=== PATIENT | male | born 1985 | race Caucasian/White ===

== ENCOUNTER 2016-07-28 16:47 | Emergency (ER) | payer OTHER ==
[~2016-07-28 16:47] MED LIST: CLIN1CAP5 PO; TYLE325T5 PO
[2016-07-28 18:29] LABS: BASO % 0.8 % (0.0-1.0); EOS # 0.2 K/mm3 (0.0-0.50); EOS % 3.1 % (0.0-3.0); LARGE UNSTAINED CELL # 0.1 K/mm3 (0.0-0.4); LARGE UNSTAINED CELL % 1.5 % (0.0-4.0); LYMPH # 1.1 K/mm3 (1.5-4.5); LYMPH % 20.8 % (24.0-44.0); MEAN CORPUSCULAR HEMOGLOBIN 31.8 pg (27.0-33.0); MEAN CORPUSCULAR HGB CONC 35.4 g/dl (32.0-36.5); MEAN CORPUSCULAR VOLUME 89.7 fl (80.0-96.0); MONO # 0.2 K/mm3 (0.0-0.8); MONO % 4.6 % (0.0-5.0); NEUTROPHILS # 3.6 K/mm3 (1.8-7.7); NEUTROPHILS % 69.3 % (36.0-66.0); PLATELET COUNT, AUTOMATED 137 k/mm3 (150-450); RED CELL DISTRIBUTION WIDTH 12.7 % (11.5-14.5); WHITE BLOOD COUNT 5.2 K/mm3 (4.0-10.0)
[2016-07-28 18:41] LABS: ALBUMIN/GLOBULIN RATIO 1.33 (1.00-1.93); ALKALINE PHOSPHATASE 95 U/L (45-117); ALT/SGPT 44 U/L (12-78); AMYLASE 26 U/L (25-115); ANION GAP 7 MEQ/L (8-16); AST/SGOT 14 U/L (15-37); BILIRUBIN,DIRECT 0.2 MG/DL (0.0-0.2); BILIRUBIN,TOTAL 0.5 MG/DL (0.2-1.0); BLOOD UREA NITROGEN 16 MG/DL (7-18); CALCIUM LEVEL 8.7 MG/DL (8.5-10.1); CARBON DIOXIDE LEVEL 28 MEQ/L (21-32); CHLORIDE LEVEL 105 MEQ/L (98-107); CREATININE FOR GFR 1.04 MG/DL (0.70-1.30); GLOMERULAR FILTRATION RATE > 60.0 (>60); GLUCOSE, FASTING 96 MG/DL (70-105); SODIUM LEVEL 140 MEQ/L (136-145)
--- NOTE | 2016-07-28 20:58 | REP ---
Clinical: Periumbilical pain. Technique: Supine and upright views of the abdomen and pelvis. Findings: Lung bases are clear and without evidence for pneumoperitoneum. Supine and upright views of the abdomen and pelvis demonstrate nonspecific bowel gas pattern without obstruction or perforation. No organomegaly. No abnormal calcifications. Skeletal structures normal for age. Impression: Nonspecific bowel gas pattern. Signed by Shailesh Nunez MD 07/28/2016 08:49 P
--- NOTE | 2016-07-28 21:16 | EDDOCDS ---
Physician Documentation [facility] Name: Mino Swanson Age: 31 yrs Sex: Male : 1985 Arrival Date: 07/28/2016 Time: 16:47 Bed TR2 Private MD: Samy Adame Disposition: 07/28/16 21:09 Discharged to Home/Self Care. Impression: Unspecified abdominal pain - umbilical . - Condition is Stable. - Discharge Instructions: Abdominal Pain, Adult. - Medication Reconciliation, Local Pharmacy Hours form. - Follow up: Joaquim Xiao; When: Call to arrange an appointment; Reason: Recheck today's complaints, Continuance of care. Follow up: Phil Peraza; When: Call to arrange an appointment; Reason: Recheck today's complaints, Continuance of care. - Problem is new. - Symptoms are unchanged. Historical: - Allergies: no known allergies; - Home Meds: 1. [place] 5-325 mg Oral tab 1 tab every 4-6 hours (Last dose: 07/27/2016) - PMHx: GERD; - PSHx: Hernia repair- Umbilical; pilonidal cyst; - Social history: Smoking status: Patient uses tobacco products, current some day smoker. No barriers to communication noted, The patient speaks fluent New Zealander, Speaks appropriately for age. - Family history: Not pertinent. - : The pt / caregiver states he / she is not on anticoagulants. Home medication list is obtained from the patient. - Exposure Risk Screening:: None identified. Vital Signs: 07/28 16:48 BP 151 / 81; Pulse 101; Resp 18 S; Temp 99.2(O); Pulse Ox 99% on R/A; Weight 117.93 kg gr2 / 259.99 lbs (R); Height 6 ft. 0 in. (182.88 cm) (R); Pain 4/10; 17:55 BP 144 / 72; Pulse 89; Resp 20; Temp 99.7(TE); Pulse Ox 98% on R/A; Pain 9/10; ar3 21:02 BP 134 / 72 LA Sitting (auto/lg); Pulse 91; Resp 18; Temp 99.0; Pulse Ox 95% on R/A; bnb Pain 9/10; 16:48 Body Mass Index 35.26 (117.93 kg, 182.88 cm) gr2 MDM: 17:19 Undress patient appropriately for examination ordered. jc4 17:20 Amylase Ordered. EDMS 17:20 Basic Metabolic Profile Ordered. EDMS 17:20 CBC with Diff Ordered. EDMS 17:20 Lipase Ordered. EDMS 17:20 Liver Profile Ordered. EDMS 17:21 NOTHING BY MOUTH+DIET ordered. EDMS 19:45 Liver Profile Reviewed. mo1 19:45 Amylase Reviewed. mo1 19:46 Lipase Reviewed. mo1 19:46 CBC with Diff Reviewed. mo1 19:46 Basic Metabolic Profile Reviewed. mo1 19:57 Abdomen 2 View Ordered. EDMS 20:10 Financial registration complete. gjb 20:12 [facility] Payment Agreement was scanned into [employer] and attached to record. gjb Signatures: Dispatcher [employer] Emir Hernandez, RN Layne Frederick RN RN jc4 Jose De Jesus Xiong PA PA mo1 Mila Lindsay,RN Tsering Black The chart was reviewed and I authenticate all verbal orders and agree with the evaluation and treatment provided.Attachments: 20:12 [facility] [place] Payment Agreement gjb MTDD
--- NOTE | 2016-07-28 21:16 | EDDOCDS ---
Nurse's Notes [facility] Name: Mino Swanson Age: 31 yrs Sex: Male : 1985 Arrival Date: 07/28/2016 Time: 16:47 Bed TR2 Private MD: Samy Adame Diagnosis: Unspecified abdominal pain-umbilical Presentation: 07/28 16:50 Presenting complaint: Patient states: pt c/o lower abdominal pain x 2 weeks. reports ead hernia repair in May. Pt states "it feels like another hernia starting." Pt reports nausea, denies vomiting. "When I burp it smells like rotten eggs.". Risk factors: the patient reports not having a history of previous torsion. Adult Sepsis Screening: The patient does not have new or worsening altered mentation. Patient's respiratory rate is less than 22. Systolic blood pressure is greater than 100. Patient has a qSOFA score of 0- Negative Sepsis Screen. Suicide/Homicide risk assessment- the patient denies having any suicidal and/or homicidal ideations and does not present with any other emotional, behavioral or mental health complaints. Status: Patient is not a business services analyst or dependent. Transition of care: patient was not received from another setting of care. 16:50 Acuity: RAKEL Level 3 ead 16:50 Method Of Arrival: Walkin/Carried/Asstd ead Triage Assessment: 16:52 General: Appears in no apparent distress, Behavior is appropriate for age, cooperative. ead Pain: Location: umbilical area, right upper quadrant and left upper quadrant Pain currently is 8 out of 10 on a pain scale. HIV screening NA for this visit Offered previously. Respiratory: Airway is patent Respiratory effort is even, unlabored. GI: Abdomen is obese, Reports lower abdominal pain, upper abd pain, nausea, Denies vomiting. Derm: Skin is pink, warm & dry. Historical: - Allergies: no known allergies; - Home Meds: 1. [place] 5-325 mg Oral tab 1 tab every 4-6 hours (Last dose: 07/27/2016) - PMHx: GERD; - PSHx: Hernia repair- Umbilical; pilonidal cyst; - Social history: Smoking status: Patient uses tobacco products, current some day smoker. No barriers to communication noted, The patient speaks fluent Vietnamese, Speaks appropriately for age. - Family history: Not pertinent. - : The pt / caregiver states he / she is not on anticoagulants. Home medication list is obtained from the patient. - Exposure Risk Screening:: None identified. Screenin:28 Screening information is obtained from the patient. Fall risk: No risks identified. cz Assistance ADL's: requires no assistance with activities of daily living. Abuse/DV Screen: The patient / caregiver reports he/she is: not in a situation that causes fear, pain or injury. Nutritional screening: No deficits noted. Advance Directives: Currently, there is no health care proxy. There is no active DNR order. There is no living will. There is no Power of Dial Equipment Engineer. Advance directive information has not previously been placed in an [facility] medical record. home support is adequate. Assessment: 19:28 Reassessment: no change in assessment abdominal pain for 2 weeks. cz Vital Signs: 16:48 BP 151 / 81; Pulse 101; Resp 18 S; Temp 99.2(O); Pulse Ox 99% on R/A; Weight 117.93 kg gr2 (R); Height 6 ft. 0 in. (182.88 cm) (R); Pain 4/10; 17:55 BP 144 / 72; Pulse 89; Resp 20; Temp 99.7(TE); Pulse Ox 98% on R/A; Pain 9/10; ar3 21:02 BP 134 / 72 LA Sitting (auto/lg); Pulse 91; Resp 18; Temp 99.0; Pulse Ox 95% on R/A; bnb Pain 9/10; 16:48 Body Mass Index 35.26 (117.93 kg, 182.88 cm) 2 Vitals: 16:48 Log In Time: July 28, 2016 at 16:48. gr2 ED Course: 16:48 Patient visited by ePlon Cohen. gr2 16:48 Samy Adame MD is Private Physician. gr2 16:48 Patient moved to Waiting gr2 16:49 Patient visited by Pelon Cohen. gr2 16:49 Patient moved to Pre RCE gr2 16:52 Triage Initiated ead 17:57 Patient visited by Maria Guadalupe Josue PCA. ar3 18:00 Amylase Sent. ar3 18:00 Basic Metabolic Profile Sent. ar3 18:00 CBC with Diff Sent. ar3 18:00 Lipase Sent. ar3 18:00 Liver Profile Sent. ar3 19:26 Patient moved to Triage 1 cz 19:28 The patient / caregiver is instructed regarding the plan of care and ED course. cz 19:29 Jose De Jesus Xiong PA is PHCP. mo1 19:29 Mino Mo DO is Attending Physician. mo1 19:47 Patient visited by Jose De Jesus Xiong PA. mo1 19:58 Patient moved to TR1 ms18 20:12 [facility] Payment Agreement was scanned into [employer] and attached to record. gjb 20:54 Patient moved to PR1 / 25 ar3 21:03 Patient visited by Yulia Ashley PCA. bnb 21:09 Joaquim Xiao is Referral Physician. mo1 21:09 Phil Peraza is Referral Physician. mo1 21:15 Patient moved to TR2 cz 21:15 No IV's were initiated during this patient's visit. No procedures done that require cz assistance. Order Results: Lab Order: Amylase; SPEC'M 07/28/16 18:00 Test: AMYLASE; Value: 26; Range: 25-115; Units: U/L; Status: F Lab Order: Basic Metabolic Profile; SPEC'M 07/28/16 18:00 Test: GLUCOSE, FASTING; Value: 96; Range: 70-105; Units: MG/DL; Status: F Test: BLOOD UREA NITROGEN; Value: 16; Range: 7-18; Units: MG/DL; Status: F Test: CREATININE FOR GFR; Value: 1.04; Range: 0.70-1.30; Units: MG/DL; Status: F Test: GLOMERULAR FILTRATION RATE; Value: > 60.0; Range: >60; Status: F Test: SODIUM LEVEL; Value: 140; Range: 136-145; Units: MEQ/L; Status: F Test: POTASSIUM SERUM; Value: 4.0; Range: 3.5-5.1; Units: MEQ/L; Status: F Test: CHLORIDE LEVEL; Value: 105; Range: 98-107; Units: MEQ/L; Status: F Test: CARBON DIOXIDE LEVEL; Value: 28; Range: 21-32; Units: MEQ/L; Status: F Test: ANION GAP; Value: 7; Range: 8-16; Abnormal: Below low normal; Units: MEQ/L; Status: F Test: CALCIUM LEVEL; Value: 8.7; Range: 8.5-10.1; Units: MG/DL; Status: F Test Note: ; Units are mL/min/1.73 m2 Chronic Kidney Disease Staging per NKF: Stage I & II GFR >=60 Normal to Mildly Decreased Stage III GFR 30-59 Moderately Decreased Stage IV GFR 15-29 Severely Decreased Stage V GFR <15 Very Little GFR Left ESRD GFR <15 on OPERATIONS ACCOUNTANT Lab Order: CBC with Diff; SPEC'M 07/28/16 18:00 Test: WHITE BLOOD COUNT; Value: 5.2; Range: 4.0-10.0; Units: K/mm3; Status: F Test: RED BLOOD COUNT; Value: 5.09; Range: 4.30-6.10; Units: M/mm3; Status: F Test: HEMOGLOBIN; Value: 16.2; Range: 14.0-18.0; Units: g/dl; Status: F Test: HEMATOCRIT; Value: 45.7; Range: 42.0-52.0; Units: %; Status: F Test: MEAN CORPUSCULAR VOLUME; Value: 89.7; Range: 80.0-96.0; Units: fl; Status: F Test: MEAN CORPUSCULAR HEMOGLOBIN; Value: 31.8; Range: 27.0-33.0; Units: pg; Status: F Test: MEAN CORPUSCULAR HGB CONC; Value: 35.4; Range: 32.0-36.5; Units: g/dl; Status: F Test: RED CELL DISTRIBUTION WIDTH; Value: 12.7; Range: 11.5-14.5; Units: %; Status: F Test: PLATELET COUNT, AUTOMATED; Value: 137; Range: 150-450; Abnormal: Below low normal; Units: k/mm3; Status: F Test: NEUTROPHILS %; Value: 69.3; Range: 36.0-66.0; Abnormal: Above high normal; Units: %; Status: F Test: LYMPH %; Value: 20.8; Range: 24.0-44.0; Abnormal: Below low normal; Units: %; Status: F Test: MONO %; Value: 4.6; Range: 0.0-5.0; Units: %; Status: F Test: EOS %; Value: 3.1; Range: 0.0-3.0; Abnormal: Above high normal; Units: %; Status: F Test: BASO %; Value: 0.8; Range: 0.0-1.0; Units: %; Status: F Test: LARGE UNSTAINED CELL %; Value: 1.5; Range: 0.0-4.0; Units: %; Status: F Test: NEUTROPHILS #; Value: 3.6; Range: 1.8-7.7; Units: K/mm3; Status: F Test: LYMPH #; Value: 1.1; Range: 1.5-4.5; Abnormal: Below low normal; Units: K/mm3; Status: F Test: MONO #; Value: 0.2; Range: 0.0-0.8; Units: K/mm3; Status: F Test: EOS #; Value: 0.2; Range: 0.0-0.50; Units: K/mm3; Status: F Test: BASO #; Value: 0.0; Range: 0.0-0.2; Units: K/mm3; Status: F Test: LARGE UNSTAINED CELL #; Value: 0.1; Range: 0.0-0.4; Units: K/mm3; Status: F Lab Order: Lipase; SPEC'M 07/28/16 18:00 Test: LIPASE; Value: 121; Range: 73-393; Units: U/L; Status: F Lab Order: Liver Profile; SPEC'M 07/28/16 18:00 Test: AST/SGOT; Value: 14; Range: 15-37; Abnormal: Below low normal; Units: U/L; Status: F Test: ALT/SGPT; Value: 44; Range: 12-78; Units: U/L; Status: F Test: ALKALINE PHOSPHATASE; Value: 95; Range: 45-117; Units: U/L; Status: F Test: BILIRUBIN,TOTAL; Value: 0.5; Range: 0.2-1.0; Units: MG/DL; Status: F Test: BILIRUBIN,DIRECT; Value: 0.2; Range: 0.0-0.2; Units: MG/DL; Status: F Test: TOTAL PROTEIN; Value: 7.0; Range: 6.4-8.2; Units: GM/DL; Status: F Test: ALBUMIN; Value: 4.0; Range: 3.2-5.2; Units: GM/DL; Status: F Test: ALBUMIN/GLOBULIN RATIO; Value: 1.33; Range: 1.00-1.93; Status: F Outcome: 21:09 Discharge ordered by Provider. mo1 21:15 Discharge Assessment: Patient awake, alert and oriented x 3. No cognitive and/or cz functional deficits noted. Patient verbalized understanding of disposition instructions. patient administered narcotics - no. The following High Risk Discharge criteria are identified: None. Discharged to home ambulatory. Condition: stable. Discharge instructions given to patient, Instructed on discharge instructions, follow up and referral plans. Demonstrated understanding of instructions, Pt was receptive of discharge instructions/ teaching. No special radiology studies were completed. Property :Personal belongings accompany Pt. 21:16 Patient left the ED. cz Signatures: Emir Keating RN RN cz Maria Guadalupe Josue, ROOM SERVICE MANAGER ROOM SERVICE MANAGER ar3 Pelon Cohen gr2 Jose De Jesus Xiong PA PA mo1 Mila Lindsay,RN RN Arabella Cortez RN RN ms18 Tsering Lovelace Brittney, ROOM SERVICE MANAGER ROOM SERVICE MANAGER bnb TIAN
--- NOTE | 2016-07-30 22:16 | EDDOCDS ---
Physician Documentation [facility] Name: Mino Swanson Age: 31 yrs Sex: Male : 1985 Arrival Date: 07/28/2016 Time: 16:47 Bed TR2 Private MD: Samy Adame Disposition: 07/28/16 21:09 Discharged to Home/Self Care. Impression: Unspecified abdominal pain - umbilical . - Condition is Stable. - Discharge Instructions: Abdominal Pain, Adult. - Medication Reconciliation, Local Pharmacy Hours form. - Follow up: Joaquim Xiao; When: Call to arrange an appointment; Reason: Recheck today's complaints, Continuance of care. Follow up: Phil Peraza; When: Call to arrange an appointment; Reason: Recheck today's complaints, Continuance of care. - Problem is new. - Symptoms are unchanged. Historical: - Allergies: no known allergies; - Home Meds: 1. [place] 5-325 mg Oral tab 1 tab every 4-6 hours (Last dose: 07/27/2016) - PMHx: GERD; - PSHx: Hernia repair- Umbilical; pilonidal cyst; - Social history: Smoking status: Patient uses tobacco products, current some day smoker. No barriers to communication noted, The patient speaks fluent Mauritanian, Speaks appropriately for age. - Family history: Not pertinent. - : The pt / caregiver states he / she is not on anticoagulants. Home medication list is obtained from the patient. - Exposure Risk Screening:: None identified. Vital Signs: 07/28 16:48 BP 151 / 81; Pulse 101; Resp 18 S; Temp 99.2(O); Pulse Ox 99% on R/A; Weight 117.93 kg gr2 / 259.99 lbs (R); Height 6 ft. 0 in. (182.88 cm) (R); Pain 4/10; 17:55 BP 144 / 72; Pulse 89; Resp 20; Temp 99.7(TE); Pulse Ox 98% on R/A; Pain 9/10; ar3 21:02 BP 134 / 72 LA Sitting (auto/lg); Pulse 91; Resp 18; Temp 99.0; Pulse Ox 95% on R/A; bnb Pain 9/10; 16:48 Body Mass Index 35.26 (117.93 kg, 182.88 cm) gr2 MDM: 17:19 Undress patient appropriately for examination ordered. jc4 17:20 Amylase Ordered. EDMS 17:20 Basic Metabolic Profile Ordered. EDMS 17:20 CBC with Diff Ordered. EDMS 17:20 Lipase Ordered. EDMS 17:20 Liver Profile Ordered. EDMS 17:21 NOTHING BY MOUTH+DIET ordered. EDMS 19:45 Liver Profile Reviewed. mo1 19:45 Amylase Reviewed. mo1 19:46 Lipase Reviewed. mo1 19:46 CBC with Diff Reviewed. mo1 19:46 Basic Metabolic Profile Reviewed. mo1 19:57 Abdomen 2 View Ordered. EDMS 20:10 Financial registration complete. b :12 [facility] Payment Agreement was scanned into [employer] and attached to record. gjb 07/29 10:29 T-Sheet-- Draft Copy was scanned into [employer] and attached to record. gb Signatures: Dispatcher [employer] Emir Hernandez, Priscila Olivas RN, Howard Reg gb Layne Bustamante RN RN jc4 Jose De Jesus Xiong PA PA mo1 Mila Lindsay RN RN ead Beck, Gabriela gjb The chart was reviewed and I authenticate all verbal orders and agree with the evaluation and treatment provided.Attachments: 07/28 20:12 [facility] Payment Agreement gjb 07/29 10:29 T-Sheet-- Draft Copy gb Chart Complete MTDD
--- NOTE | 2016-07-30 22:16 | EDDOCDS ---
Nurse's Notes [facility] Name: Mino Swanson Age: 31 yrs Sex: Male : 1985 Arrival Date: 07/28/2016 Time: 16:47 Bed TR2 Private MD: Samy Adame Diagnosis: Unspecified abdominal pain-umbilical Presentation: 07/28 16:50 Presenting complaint: Patient states: pt c/o lower abdominal pain x 2 weeks. reports ead hernia repair in May. Pt states "it feels like another hernia starting." Pt reports nausea, denies vomiting. "When I burp it smells like rotten eggs.". Risk factors: the patient reports not having a history of previous torsion. Adult Sepsis Screening: The patient does not have new or worsening altered mentation. Patient's respiratory rate is less than 22. Systolic blood pressure is greater than 100. Patient has a qSOFA score of 0- Negative Sepsis Screen. Suicide/Homicide risk assessment- the patient denies having any suicidal and/or homicidal ideations and does not present with any other emotional, behavioral or mental health complaints. Status: Patient is not a stamp machine servicer or dependent. Transition of care: patient was not received from another setting of care. 16:50 Acuity: RAKEL Level 3 ead 16:50 Method Of Arrival: Walkin/Carried/Asstd ead Triage Assessment: 16:52 General: Appears in no apparent distress, Behavior is appropriate for age, cooperative. ead Pain: Location: umbilical area, right upper quadrant and left upper quadrant Pain currently is 8 out of 10 on a pain scale. HIV screening NA for this visit Offered previously. Respiratory: Airway is patent Respiratory effort is even, unlabored. GI: Abdomen is obese, Reports lower abdominal pain, upper abd pain, nausea, Denies vomiting. Derm: Skin is pink, warm & dry. Historical: - Allergies: no known allergies; - Home Meds: 1. [place] 5-325 mg Oral tab 1 tab every 4-6 hours (Last dose: 07/27/2016) - PMHx: GERD; - PSHx: Hernia repair- Umbilical; pilonidal cyst; - Social history: Smoking status: Patient uses tobacco products, current some day smoker. No barriers to communication noted, The patient speaks fluent Kinyarwanda, Speaks appropriately for age. - Family history: Not pertinent. - : The pt / caregiver states he / she is not on anticoagulants. Home medication list is obtained from the patient. - Exposure Risk Screening:: None identified. Screenin:28 Screening information is obtained from the patient. Fall risk: No risks identified. cz Assistance ADL's: requires no assistance with activities of daily living. Abuse/DV Screen: The patient / caregiver reports he/she is: not in a situation that causes fear, pain or injury. Nutritional screening: No deficits noted. Advance Directives: Currently, there is no health care proxy. There is no active DNR order. There is no living will. There is no Power of Videotape Operator. Advance directive information has not previously been placed in an [facility] medical record. home support is adequate. Assessment: 19:28 Reassessment: no change in assessment abdominal pain for 2 weeks. cz Vital Signs: 16:48 BP 151 / 81; Pulse 101; Resp 18 S; Temp 99.2(O); Pulse Ox 99% on R/A; Weight 117.93 kg gr2 (R); Height 6 ft. 0 in. (182.88 cm) (R); Pain 4/10; 17:55 BP 144 / 72; Pulse 89; Resp 20; Temp 99.7(TE); Pulse Ox 98% on R/A; Pain 9/10; ar3 21:02 BP 134 / 72 LA Sitting (auto/lg); Pulse 91; Resp 18; Temp 99.0; Pulse Ox 95% on R/A; bnb Pain 9/10; 16:48 Body Mass Index 35.26 (117.93 kg, 182.88 cm) 2 Vitals: 16:48 Log In Time: July 28, 2016 at 16:48. gr2 ED Course: 16:48 Patient visited by Pelon Cohen. gr2 16:48 Samy Adame MD is Private Physician. gr2 16:48 Patient moved to Waiting gr2 16:49 Patient visited by Pelon Cohen. gr2 16:49 Patient moved to Pre RCE gr2 16:52 Triage Initiated ead 17:57 Patient visited by Maria Guadalupe Josue PCA. ar3 18:00 Amylase Sent. ar3 18:00 Basic Metabolic Profile Sent. ar3 18:00 CBC with Diff Sent. ar3 18:00 Lipase Sent. ar3 18:00 Liver Profile Sent. ar3 19:26 Patient moved to Triage 1 cz 19:28 The patient / caregiver is instructed regarding the plan of care and ED course. cz 19:29 Jose De Jesus Xiong PA is PHCP. mo1 19:29 Mino Mo DO is Attending Physician. mo1 19:47 Patient visited by Jose De Jesus Xiong PA. mo1 19:58 Patient moved to TR1 ms18 20:12 [facility] Payment Agreement was scanned into Listen Edition and attached to record. gjb 20:54 Patient moved to PR1 / 25 ar3 21:03 Patient visited by Yulia Ashley PCA. bnb 21:09 Joaquim Xiao is Referral Physician. mo1 21:09 Phil Peraza is Referral Physician. mo1 21:15 Patient moved to TR2 cz 21:15 No IV's were initiated during this patient's visit. No procedures done that require cz assistance. 21:25 Abdomen 2 View Returned. EDMS 07/29 10:29 T-Sheet-- Draft Copy was scanned into Listen Edition and attached to record. gb Order Results: Lab Order: Amylase; SPEC'M 07/28/16 18:00 Test: AMYLASE; Value: 26; Range: 25-115; Units: U/L; Status: F Lab Order: Basic Metabolic Profile; SPEC'M 07/28/16 18:00 Test: GLUCOSE, FASTING; Value: 96; Range: 70-105; Units: MG/DL; Status: F Test: BLOOD UREA NITROGEN; Value: 16; Range: 7-18; Units: MG/DL; Status: F Test: CREATININE FOR GFR; Value: 1.04; Range: 0.70-1.30; Units: MG/DL; Status: F Test: GLOMERULAR FILTRATION RATE; Value: > 60.0; Range: >60; Status: F Test: SODIUM LEVEL; Value: 140; Range: 136-145; Units: MEQ/L; Status: F Test: POTASSIUM SERUM; Value: 4.0; Range: 3.5-5.1; Units: MEQ/L; Status: F Test: CHLORIDE LEVEL; Value: 105; Range: 98-107; Units: MEQ/L; Status: F Test: CARBON DIOXIDE LEVEL; Value: 28; Range: 21-32; Units: MEQ/L; Status: F Test: ANION GAP; Value: 7; Range: 8-16; Abnormal: Below low normal; Units: MEQ/L; Status: F Test: CALCIUM LEVEL; Value: 8.7; Range: 8.5-10.1; Units: MG/DL; Status: F Test Note: ; Units are mL/min/1.73 m2 Chronic Kidney Disease Staging per NKF: Stage I & II GFR >=60 Normal to Mildly Decreased Stage III GFR 30-59 Moderately Decreased Stage IV GFR 15-29 Severely Decreased Stage V GFR <15 Very Little GFR Left ESRD GFR <15 on TRUCK DESPATCHER Lab Order: CBC with Diff; SPEC'M 07/28/16 18:00 Test: WHITE BLOOD COUNT; Value: 5.2; Range: 4.0-10.0; Units: K/mm3; Status: F Test: RED BLOOD COUNT; Value: 5.09; Range: 4.30-6.10; Units: M/mm3; Status: F Test: HEMOGLOBIN; Value: 16.2; Range: 14.0-18.0; Units: g/dl; Status: F Test: HEMATOCRIT; Value: 45.7; Range: 42.0-52.0; Units: %; Status: F Test: MEAN CORPUSCULAR VOLUME; Value: 89.7; Range: 80.0-96.0; Units: fl; Status: F Test: MEAN CORPUSCULAR HEMOGLOBIN; Value: 31.8; Range: 27.0-33.0; Units: pg; Status: F Test: MEAN CORPUSCULAR HGB CONC; Value: 35.4; Range: 32.0-36.5; Units: g/dl; Status: F Test: RED CELL DISTRIBUTION WIDTH; Value: 12.7; Range: 11.5-14.5; Units: %; Status: F Test: PLATELET COUNT, AUTOMATED; Value: 137; Range: 150-450; Abnormal: Below low normal; Units: k/mm3; Status: F Test: NEUTROPHILS %; Value: 69.3; Range: 36.0-66.0; Abnormal: Above high normal; Units: %; Status: F Test: LYMPH %; Value: 20.8; Range: 24.0-44.0; Abnormal: Below low normal; Units: %; Status: F Test: MONO %; Value: 4.6; Range: 0.0-5.0; Units: %; Status: F Test: EOS %; Value: 3.1; Range: 0.0-3.0; Abnormal: Above high normal; Units: %; Status: F Test: BASO %; Value: 0.8; Range: 0.0-1.0; Units: %; Status: F Test: LARGE UNSTAINED CELL %; Value: 1.5; Range: 0.0-4.0; Units: %; Status: F Test: NEUTROPHILS #; Value: 3.6; Range: 1.8-7.7; Units: K/mm3; Status: F Test: LYMPH #; Value: 1.1; Range: 1.5-4.5; Abnormal: Below low normal; Units: K/mm3; Status: F Test: MONO #; Value: 0.2; Range: 0.0-0.8; Units: K/mm3; Status: F Test: EOS #; Value: 0.2; Range: 0.0-0.50; Units: K/mm3; Status: F Test: BASO #; Value: 0.0; Range: 0.0-0.2; Units: K/mm3; Status: F Test: LARGE UNSTAINED CELL #; Value: 0.1; Range: 0.0-0.4; Units: K/mm3; Status: F Lab Order: Lipase; SPEC' 07/28/16 18:00 Test: LIPASE; Value: 121; Range: 73-393; Units: U/L; Status: F Lab Order: Liver Profile; SPEC' 07/28/16 18:00 Test: AST/SGOT; Value: 14; Range: 15-37; Abnormal: Below low normal; Units: U/L; Status: F Test: ALT/SGPT; Value: 44; Range: 12-78; Units: U/L; Status: F Test: ALKALINE PHOSPHATASE; Value: 95; Range: 45-117; Units: U/L; Status: F Test: BILIRUBIN,TOTAL; Value: 0.5; Range: 0.2-1.0; Units: MG/DL; Status: F Test: BILIRUBIN,DIRECT; Value: 0.2; Range: 0.0-0.2; Units: MG/DL; Status: F Test: TOTAL PROTEIN; Value: 7.0; Range: 6.4-8.2; Units: GM/DL; Status: F Test: ALBUMIN; Value: 4.0; Range: 3.2-5.2; Units: GM/DL; Status: F Test: ALBUMIN/GLOBULIN RATIO; Value: 1.33; Range: 1.00-1.93; Status: F Radiology Order: Abdomen 2 View Test: Abdomen 2 View REASON FOR EXAMINATION: tarun umbilical pain; Clinical: Periumbilical pain.; ; Technique: Supine and upright views of the abdomen and pelvis.; ; Findings: Lung bases are clear and without evidence for pneumoperitoneum. Supine; and upright views of the abdomen and pelvis demonstrate nonspecific bowel gas; pattern without obstruction or perforation. No organomegaly. No abnormal; calcifications. Skeletal structures normal for age.; ; Impression:; Nonspecific bowel gas pattern.; ; ; Signed by; Shailesh Nunez MD 07/28/2016 08:49 P; Outcome: 07/28 21:09 Discharge ordered by Provider. mo1 21:15 Discharge Assessment: Patient awake, alert and oriented x 3. No cognitive and/or cz functional deficits noted. Patient verbalized understanding of disposition instructions. patient administered narcotics - no. The following High Risk Discharge criteria are identified: None. Discharged to home ambulatory. Condition: stable. Discharge instructions given to patient, Instructed on discharge instructions, follow up and referral plans. Demonstrated understanding of instructions, Pt was receptive of discharge instructions/ teaching. No special radiology studies were completed. Property :Personal belongings accompany Pt. 21:16 Patient left the ED. cz Signatures: Dispatcher [employer] EDMS Emir Keating RN RN cz Priscila Hendrickson, Reg Reg gb Maria Guadalupe Josue, BOAT WORKER BOAT WORKER ar3 Pelon Cohen gr2 Jose De Jesus Xiong PA PA mo1 Mila Lindsay,Arabella Hilton RN,JYOTI RN ms18 Tsering Lovelace Brittney, BOAT WORKER BOAT WORKER bnb Chart Complete MTDD
--- NOTE | 2016-07-30 22:16 | EDDOCDS ---
Physician Documentation [facility] Name: Mino Swanson Age: 31 yrs Sex: Male : 1985 Arrival Date: 07/28/2016 Time: 16:47 Bed TR2 Private MD: Samy Adame Disposition: 07/28/16 21:09 Discharged to Home/Self Care. Impression: Unspecified abdominal pain - umbilical . - Condition is Stable. - Discharge Instructions: Abdominal Pain, Adult. - Medication Reconciliation, Local Pharmacy Hours form. - Follow up: Joaquim Xiao; When: Call to arrange an appointment; Reason: Recheck today's complaints, Continuance of care. Follow up: Phil Peraza; When: Call to arrange an appointment; Reason: Recheck today's complaints, Continuance of care. - Problem is new. - Symptoms are unchanged. Historical: - Allergies: no known allergies; - Home Meds: 1. [place] 5-325 mg Oral tab 1 tab every 4-6 hours (Last dose: 07/27/2016) - PMHx: GERD; - PSHx: Hernia repair- Umbilical; pilonidal cyst; - Social history: Smoking status: Patient uses tobacco products, current some day smoker. No barriers to communication noted, The patient speaks fluent Vietnamese, Speaks appropriately for age. - Family history: Not pertinent. - : The pt / caregiver states he / she is not on anticoagulants. Home medication list is obtained from the patient. - Exposure Risk Screening:: None identified. Vital Signs: 07/28 16:48 BP 151 / 81; Pulse 101; Resp 18 S; Temp 99.2(O); Pulse Ox 99% on R/A; Weight 117.93 kg gr2 / 259.99 lbs (R); Height 6 ft. 0 in. (182.88 cm) (R); Pain 4/10; 17:55 BP 144 / 72; Pulse 89; Resp 20; Temp 99.7(TE); Pulse Ox 98% on R/A; Pain 9/10; ar3 21:02 BP 134 / 72 LA Sitting (auto/lg); Pulse 91; Resp 18; Temp 99.0; Pulse Ox 95% on R/A; bnb Pain 9/10; 16:48 Body Mass Index 35.26 (117.93 kg, 182.88 cm) gr2 MDM: 17:19 Undress patient appropriately for examination ordered. jc4 17:20 Amylase Ordered. EDMS 17:20 Basic Metabolic Profile Ordered. EDMS 17:20 CBC with Diff Ordered. EDMS 17:20 Lipase Ordered. EDMS 17:20 Liver Profile Ordered. EDMS 17:21 NOTHING BY MOUTH+DIET ordered. EDMS 19:45 Liver Profile Reviewed. mo1 19:45 Amylase Reviewed. mo1 19:46 Lipase Reviewed. mo1 19:46 CBC with Diff Reviewed. mo1 19:46 Basic Metabolic Profile Reviewed. mo1 19:57 Abdomen 2 View Ordered. EDMS 20:10 Financial registration complete. b :12 [facility] Payment Agreement was scanned into Soraa and attached to record. gjb 07/29 10:29 T-Sheet-- Draft Copy was scanned into Soraa and attached to record. gb Signatures: Dispatcher [employer] Emir Hernandez, Priscila Olivas RN, Howard Reg gb Layne Bustamante RN RN jc4 Jose De Jesus Xiong PA PA mo1 Mila Lindsay RN RN ead Beck, Gabriela gjb The chart was reviewed and I authenticate all verbal orders and agree with the evaluation and treatment provided.Attachments: 07/28 20:12 [facility] Payment Agreement gjb 07/29 10:29 T-Sheet-- Draft Copy gb Chart Complete MTDD
== END 2016-07-28 21:16 | disposition home or self-care (01) ==
LOC: M ED 16:47
DX: R10.33 Periumbilical pain (principal); K21.9 Gastro-esophageal reflux disease without esophagitis; F17.200 Nicotine dependence, unspecified, uncomplicated; Z79.891 Long term (current) use of opiate analgesic

== ENCOUNTER → 2016-08-20 | Outpatient (REF) | payer OTHER | LOC: M SFHCPLAZ 09:46 | PROVIDERS: ATTEND Family Medicine | DX: R10.33 Periumbilical pain (principal) ==

== ENCOUNTER 2016-10-09 18:57 | Emergency (ER) | payer OTHER ==
[~2016-10-09] VITALS: Ht 182.9 cm; Wt 119.7 kg
[2016-10-09] MEDS ORDERED: PROT20TA11 PO (19:03)
[2016-10-09] MEDS ORDERED: MOBI7.5T10 PO (19:03)
[2016-10-09] MEDS ORDERED: MORPHINE 4 MG/ML 1ML SYRINGE IV ONE (21:00)
[2016-10-09] MEDS ORDERED: NS 1,000 ML IV ONE (21:00)
[2016-10-09] MEDS ORDERED: ONDANSETRON 4MG/2ML VIAL (J2405) IV ONE (21:00)
[2016-10-09 22:02] LABS: BASO # 0.1 K/mm3 (0.0-0.2); BASO % 0.7 % (0.0-1.0); EOS # 0.5 K/mm3 (0.0-0.50); EOS % 4.4 % (0.0-3.0); LARGE UNSTAINED CELL # 0.3 K/mm3 (0.0-0.4); LARGE UNSTAINED CELL % 2.4 % (0.0-4.0); LYMPH # 4.4 K/mm3 (1.5-4.5); LYMPH % 39.8 % (24.0-44.0); MEAN CORPUSCULAR HEMOGLOBIN 30.6 pg (27.0-33.0); MEAN CORPUSCULAR HGB CONC 34.4 g/dl (32.0-36.5); MONO # 0.6 K/mm3 (0.0-0.8); MONO % 5.3 % (0.0-5.0); NEUTROPHILS % 47.4 % (36.0-66.0); PLATELET COUNT, AUTOMATED 161 k/mm3 (150-450); WHITE BLOOD COUNT 10.5 K/mm3 (4.0-10.0)
[2016-10-09 22:13] LABS: ALBUMIN 4.1 GM/DL (3.2-5.2); ALBUMIN/GLOBULIN RATIO 1.41 (1.00-1.93); ALKALINE PHOSPHATASE 105 U/L (45-117); ALT/SGPT 63 U/L (12-78); ANION GAP 8 MEQ/L (8-16); AST/SGOT 23 U/L (15-37); BILIRUBIN,DIRECT < 0.1 MG/DL (0.0-0.2); BILIRUBIN,TOTAL 0.3 MG/DL (0.2-1.0); BLOOD UREA NITROGEN 18 MG/DL (7-18); CALCIUM LEVEL 8.6 MG/DL (8.5-10.1); CARBON DIOXIDE LEVEL 24 MEQ/L (21-32); CHLORIDE LEVEL 109 MEQ/L (98-107); CREATININE FOR GFR 1.01 MG/DL (0.70-1.30); GLOMERULAR FILTRATION RATE > 60.0 (>60); GLUCOSE, FASTING 94 MG/DL (70-105); SODIUM LEVEL 141 MEQ/L (136-145)
[2016-10-09] MEDS ORDERED: ISOVUE-370 76% 100ML VIAL (Q9967) As Ordered ONE (22:38)
--- NOTE | 2016-10-09 23:10 | REPUSA ---
CT of the abdomen and pelvis with contrast Clinical statement: Pain. Technique: Multiple axial CT images were obtained from the base of the lungs through the floor of the pelvis utilizing 5 mm axial slices after administration of nonionic intravenous contrast. Coronal an d sagittal reconstructions were also obtained. No comparison is available. Findings: Chest: The visualized lung bases are clear. Abdomen: The liver, spleen, pancreas, kidneys, gallbladder, and adrenal glands are unremarkable. The aorta is within normal limits. There is no evidence of abdominal lymphadenopathy or ascites. Pelvis: The bowel is unremarkable, with no obstructive or inflammatory changes. The appendix is concha l. The urinary bladder is within normal limits. The other pelvic structures appear grossly intact. Th ere is no evidence of pelvic lymphadenopathy or ascites. Bones: There are no suspicious osseous abnormalities seen. Impression: Unremarkable CT examination of the abdomen and pelvis.
[2016-10-10] MEDS ORDERED: ACET30TAB PO (00:19)
[2016-10-10] MEDS ORDERED: ACETAMINOPHEN/CODEINE #3 TABLET (BULK) PO ONE (00:30)
[2016-10-10 00:46] VITALS: BP 148/80
== END 2016-10-10 00:50 | disposition home or self-care (01) ==
LOC: M ED 20:55
DX: R10.9 Unspecified abdominal pain (principal)
CPT/HCPCS: 36415; 74177; 80048; 80076; 81001; 83690; 85025; 96361; 96374; 96375; 99283; J2405; Q9967

== ENCOUNTER → 2016-12-02 | Outpatient (CLI) | payer OTHER ==
[~2016-12-02] MED LIST changes: +ACET30TAB PO; +MOBI7.5T10 PO; +PROT20TA11 PO
--- NOTE | 2016-12-03 09:48 | REP ---
Clinical: Abdominal pain with prior hernia repair. Technique: Directed ultrasound examination of the periumbilical region using linear high frequency transducer. Findings: Ultrasound examination of the periumbilical region demonstrates no hernia, fluid collection or mass lesion. Visualized soft tissue structures appear normal. Impression: Normal limited abdominal ultrasound without evidence for umbilical hernia or periumbilical abnormality. Signed by Shailesh Nunez MD 12/02/2016 01:21 P
== END ==
LOC: M RAD 12:38
PROVIDERS: ATTEND Surgery
DX: R10.84 Generalized abdominal pain (principal)

== ENCOUNTER 2016-12-14 19:40 | Emergency (ER) | payer OTHER ==
[~2016-12-14] VITALS: Ht 185.4 cm; Wt 117.9 kg
[2016-12-14 21:22] LABS: BASO # 0.1 K/mm3 (0.0-0.2); BASO % 0.8 % (0.0-1.0); EOS # 0.5 K/mm3 (0.0-0.50); EOS % 6.6 % (0.0-3.0); LARGE UNSTAINED CELL # 0.1 K/mm3 (0.0-0.4); LARGE UNSTAINED CELL % 1.3 % (0.0-4.0); MEAN CORPUSCULAR HEMOGLOBIN 31.8 pg (27.0-33.0); MEAN CORPUSCULAR VOLUME 90.9 fl (80.0-96.0); MONO # 0.4 K/mm3 (0.0-0.8); MONO % 5.2 % (0.0-5.0); NEUTROPHILS # 3.7 K/mm3 (1.8-7.7); NEUTROPHILS % 48.1 % (36.0-66.0); PLATELET COUNT, AUTOMATED 160 k/mm3 (150-450); RED CELL DISTRIBUTION WIDTH 13.1 % (11.5-14.5); WHITE BLOOD COUNT 7.7 K/mm3 (4.0-10.0)
[2016-12-14 21:43] LABS: ALBUMIN 3.6 GM/DL (3.2-5.2); ALKALINE PHOSPHATASE 110 U/L (45-117); ALT/SGPT 57 U/L (12-78); AMYLASE 24 U/L (25-115); ANION GAP 7 MEQ/L (8-16); AST/SGOT 22 U/L (15-37); BILIRUBIN,DIRECT < 0.1 MG/DL (0.0-0.2); BILIRUBIN,TOTAL 0.3 MG/DL (0.2-1.0); BLOOD UREA NITROGEN 12 MG/DL (7-18); CALCIUM LEVEL 8.5 MG/DL (8.5-10.1); CARBON DIOXIDE LEVEL 26 MEQ/L (21-32); CHLORIDE LEVEL 109 MEQ/L (98-107); CREATININE FOR GFR 1.05 MG/DL (0.70-1.30); GLOMERULAR FILTRATION RATE > 60.0 (>60); GLUCOSE, FASTING 158 MG/DL (70-105); POTASSIUM SERUM 3.8 MEQ/L (3.5-5.1); SODIUM LEVEL 142 MEQ/L (136-145); TOTAL PROTEIN 6.6 GM/DL (6.4-8.2)
[2016-12-14] MEDS ORDERED: HYDROmorphone HCL 1 MG/ML SYRINGE (J1170) IM ONE (22:00)
--- NOTE | 2016-12-14 23:20 | REPUSA ---
Clinical history: biliary evaluation. Comparison: 05/30/2016. Findings: The pancreas is limited in visualization secondary to overlying bowel gas, but appears marques sly unremarkable. The liver demonstrates increased echotexture and echogenicity, with no mass lesion s. The gallbladder is unremarkable. The common bile duct measures 5 mm and is within normal limits. The right kidney measures 11.6 x 5.3 x 6.7 cm and is unremarkable. There is no ascites. Impression: Fatty infiltration of the liver.
[2016-12-14 23:45] VITALS: BP 168/89
== END 2016-12-14 23:47 | disposition home or self-care (01) ==
LOC: M ED 21:12
DX: R10.11 Right upper quadrant pain (principal); J45.909 Unspecified asthma, uncomplicated; E66.8 Other obesity; Z79.899 Other long term (current) drug therapy; Z91.030 Bee allergy status; F17.210 Nicotine dependence, cigarettes, uncomplicated
CPT/HCPCS: 36415; 76705; 80048; 80076; 81001; 82150; 83690; 85025; 87086; 96372; 99283; J1170

== ENCOUNTER → 2016-12-29 | Outpatient (CLI) | payer OTHER ==
--- NOTE | 2016-12-29 17:00 | REP ---
HIDA SCAN WITH GALLBLADDER EJECTION FRACTION: Following the intravenous administration of 6.2 mCi of technetium 99m mebrofenin, multiple images of the right upper quadrant are performed every 5 minutes for a period of one hour. Gallbladder is visualized at 15 minutes post injection and there is also biliary to bowel transit at that point with no scintigraphic evidence of cholecystitis. At the one hour dyllan 8 ounces of Ensure Enlive was ingested and further imaging performed for one hour. The gallbladder activity is measured and the gallbladder ejection fraction is calculated to be 27%, which is below normal. Normal ejection fraction is greater than 35%. IMPRESSION: Low gallbladder ejection fraction at 27%. No scintigraphic evidence of cholecystitis. Signed by Denver Segura MD 12/29/2016 08:22 P
== END ==
LOC: M RAD 08:22
PROVIDERS: ATTEND Family Medicine
DX: R10.11 Right upper quadrant pain (principal)

== ENCOUNTER 2017-01-12 18:41 | Emergency (ER) | payer OTHER ==
[~2017-01-12] VITALS: Ht 182.9 cm; Wt 120.5 kg
[~2017-01-12 18:41] MED LIST changes: +CLIN150C14 PO; -CLIN1CAP5 PO; +MOBI4TAB PO; -MOBI7.5T10 PO
[2017-01-12] MEDS ORDERED: PANT40TA2 PO (18:53)
[2017-01-12 20:03] LABS: BASO # 0.1 K/mm3 (0.0-0.2); BASO % 1.1 % (0.0-1.0); EOS # 0.4 K/mm3 (0.0-0.50); EOS % 4.6 % (0.0-3.0); LARGE UNSTAINED CELL # 0.1 K/mm3 (0.0-0.4); LARGE UNSTAINED CELL % 1.5 % (0.0-4.0); LYMPH # 3.3 K/mm3 (1.5-4.5); LYMPH % 34.7 % (24.0-44.0); MEAN CORPUSCULAR HEMOGLOBIN 32.7 pg (27.0-33.0); MEAN CORPUSCULAR HGB CONC 36.3 g/dl (32.0-36.5); MEAN CORPUSCULAR VOLUME 90.3 fl (80.0-96.0); MONO # 0.6 K/mm3 (0.0-0.8); MONO % 5.9 % (0.0-5.0); NEUTROPHILS # 4.9 K/mm3 (1.8-7.7); NEUTROPHILS % 52.2 % (36.0-66.0); PLATELET COUNT, AUTOMATED 161 k/mm3 (150-450); RED CELL DISTRIBUTION WIDTH 12.6 % (11.5-14.5); WHITE BLOOD COUNT 9.4 K/mm3 (4.0-10.0)
[2017-01-12 20:26] LABS: ANION GAP 7 MEQ/L (8-16); BLOOD UREA NITROGEN 14 MG/DL (7-18); CARBON DIOXIDE LEVEL 26 MEQ/L (21-32); CHLORIDE LEVEL 108 MEQ/L (98-107); CREATININE FOR GFR 1.02 MG/DL (0.70-1.30); GLOMERULAR FILTRATION RATE > 60.0 (>60); GLUCOSE, FASTING 90 MG/DL (70-105); POTASSIUM SERUM 4.4 MEQ/L (3.5-5.1); SODIUM LEVEL 141 MEQ/L (136-145)
[2017-01-12] MEDS ORDERED: ISOVUE-370 76% 100ML VIAL (Q9967) As Ordered ONE (20:49)
--- NOTE | 2017-01-12 21:40 | REPUSA ---
CT of the abdomen and pelvis with contrast Clinical statement: Pain. Umbilical hernia. Technique: Multiple axial CT images were obtained from the base of the lungs through the floor of the pelvis utilizing 5 mm axial slices after administration of nonionic intravenous contrast. Coronal an d sagittal reconstructions were also obtained. Comparison: 10/09/2016. Findings: Chest: The visualized lung bases are clear. Abdomen: The spleen, pancreas, kidneys, gallbladder, and adrenal glands are unremarkable.. There is d iffuse low attenuation throughout the hepatic parenchyma. The aorta is within normal limits. There is no evidence of abdominal lymphadenopathy or ascites. Pelvis: The bowel is unremarkable, with no obstructive or inflammatory changes. The appendix is concha l. The urinary bladder is within normal limits. The other pelvic structures appear grossly intact. Th ere is no evidence of pelvic lymphadenopathy or ascites. Bones: There are no suspicious osseous abnormalities seen. Impression: 1. No acute abnormality to explain the patient's pain. 2. No evidence of a hernia. 3. Mild fatty infiltration of the liver.
[2017-01-12 22:01] VITALS: BP 143/95
[2017-04-15] MEDS ORDERED: DULO1CAP PO (08:06)
[2017-04-15] MEDS ORDERED: CYCL10TA PO (08:06)
== END 2017-01-12 22:04 | disposition home or self-care (01) ==
LOC: M ED 18:41
DX: R10.33 Periumbilical pain (principal); G44.209 Tension-type headache, unspecified, not intractable; Z79.899 Other long term (current) drug therapy; Z91.030 Bee allergy status; F17.290 Nicotine dependence, other tobacco product, uncomplicated
CPT/HCPCS: 36415; 74177; 80048; 85025; 99283; Q9967

== ENCOUNTER → 2017-03-06 | Outpatient (CLI) | payer OTHER ==
[~2017-03-06] MED LIST changes: +CYCL10TA PO; +DULO1CAP PO; +PANT40TA2 PO
== END ==
LOC: M PAIN 10:30
PROVIDERS: ATTEND Nurse Practitioner Family
DX: Z53.29 Procedure and treatment not carried out because of patient's decision for other reasons (principal)

== ENCOUNTER → 2017-03-19 | Outpatient (CLI) | payer OTHER | LOC: M LAB 09:58 | PROVIDERS: ATTEND Internal Medicine Gastroenterology | DX: R10.13 Epigastric pain (principal) ==

== ENCOUNTER → 2017-03-30 | Outpatient (CLI) | payer OTHER ==
--- NOTE | 2017-04-29 02:00 | ECWPNPC ---
PATIENT NAME: STEPHAN CHANCE : 1985 GENDER: MALE VISIT DATE: 03/30/2017 DISCHARGE DATE: 03/30/17 1611 VISIT LOCKED DATE TIME: PHYSICIAN: ROSENDO VELASQUEZ RESOURCE: ROSENDO VELASQUEZ REASON FOR APPOINTMENT 1. W/C ABD/HERNIA HISTORY OF PRESENT ILLNESS NEW PATIENT CONSULT: WHEN DID YOUR PAIN FIRST START? . BRIEFLY DESCRIBE HOW YOUR PAIN STARTED? . HOW DOES YOUR PAIN CHANGE WITH TIME? . DOES YOUR PAIN AWAKEN YOU FROM SLEEP? . HOW MANY HOURS OF SLEEP DO YOU NORMALLY GET? . ANY DIAGNOSTIC TESTING? . FACILITY WHERE TESTS WERE DONE? ____. PAIN TREATMENT TREATMENT YES CANCER HAVE YOU EVER HAD ANY TYPE OF CANCER?NO NO. PAIN SCREENING: PATIENT HAS A COMPLAINT OF ACUTE OR CHRONIC PAIN :YES FALL RISK SCREENING: SCREENING :NO FALLS IN THE PAST YEAR AMIN INVENTORY: QUESTIONNAIRE ASSESSEDYES SCORE VALUE CALCULATED YES SCORE: 3/63 DENIES SUICIDAL OR HOMICIDDAL IDEATION TODAY'S VISIT: NOTES: WC-( [facility]) PT REFERRED BY DR MERAZ FOR ABD/UMBILICAL HERNIA PAIN. PRIMARY CARE PROVIDER IS DR PACHECO/[facility]. HAD UMBILICAL HERNIA REPAIR 05/23/16 AT [facility]. 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 HAS HAD VARIOUS SCANS. PAIN PRIOR WAS JUST IN THE UMBILICUS, AND NOW PAIN IS OVER THE WHOLE ABDOMEN. IS ALSO BEING EVALUATED IN [place] FOR GALL BLADDER ISSUES. PAIN DOES RADIATE UNDER RIBS. IS ASO BEING SCHEDULED TO HAVE GI WORK UP. HAS RETURNED TO WORK. PAIN RADIATES TO SHOULDERS AND BACK - THIS OCCURS IN SPELLS THE LAST SPELL LASTED 3 DAYS AND OCCURED EARLY DECEMBER. PAIN IN ANTERIOR ABDOMEN IS CONSTANT. BOWEL PATTERNS HAVE CHANGED - NEW ONSET DIARRHEA 3 WEEKS AGO - OCCASIONAL DARK COLOR IN STOOL. IS FEELING VERY FULL WITH ANY EATING. HAS LOST WEIGHT WITHOUT TRYING. NO HELP WITH ANY MEDS INCLUDING PROTONIX. . CURRENT MEDICATIONS TAKING PROTONIX 40 MG TABLET DELAYED RELEASE 1 TABLET ORALLY ONCE A DAY NOT-TAKING FLEXERIL 10 MG TABLET 1 TABLET ORALLY THREE TIMES A DAY NEEDED NOT-TAKING TYLENOL 650 MG 1 1 TAB(S) ORALLY EVERY 8 HOURS NEEDED NOT-TAKING LOPERAMIDE HCL 2 MG TABLET 1 TABLET NEEDED ORALLY THREE TIMES A DAY BEFORE MEALS NOT-TAKING VITAMIN D (ERGOCALCIFEROL) 48006 UNIT CAPSULE 1 CAPSULE ORALLY WEEKLY NOT-TAKING FISH OIL MAXIMUM STRENGTH 1200 MG CAPSULE DELAYED RELEASE 1 CAPSULE ORALLY TWICE A DAY DISCONTINUED CARAFATE 1 GM TABLET 1 TABLET ON AN EMPTY STOMACH ORALLY TWICE A DAY DISCONTINUED MELOXICAM 7.5 MG TABLET 1 TABLET ORALLY ONCE A DAY, NOTES: SURGEON DISCONTINUED DICLOFENAC SODIUM 1 % GEL APPLY TO RIGHT SHOULDER EXTERNALLY TWICE A DAY DISCONTINUED REGLAN 5 MG TABLET 1 TAB(S) ORALLY EVERY 8 HRS NEEDED DISCONTINUED KEFLEX 500 MG CAPSULE 1 CAPSULE ORALLY THREE TIMES DAILY DISCONTINUED MEDROL (BAR) 4 MG TABLET DIRECTED ORALLY DIRECTED DISCONTINUED CLINDAMYCIN 300 MG 10D 300 MG TABLETS ONE TAB ORALLY EVERY SIX HOURS DISCONTINUED NAPROSYN 500 MG TABLET 1 TABLET NEEDED ORALLY EVERY 12 HOURS DISCONTINUED FLEXERIL 10 MG TABLET 1 TABLET ORALLY THREE TIMES A DAY DISCONTINUED BACTRIM DS 800-160 MG TABLET 1 TABLET ORALLY TWICE A DAY DISCONTINUED VITAMIN D 2000 UNIT TABLET 1 TABLET ORALLY ON HOLD MEDICATION LIST REVIEWED AND RECONCILED WITH THE PATIENT PAST MEDICAL HISTORY HEADACHES GERD ASCVD RISK 4.0% 06/2013 UMBILICAL HERNIA PAIN ALLERGIES N.K.D.A. SURGICAL HISTORY CYST REMOVAL 10/03/14 HERNIA REPAIR 05/23/16 SOCIAL HISTORY GENERAL: TOBACCO USE ARE YOU A:CURRENT SMOKER PATIENT COUNSELED ON THE DANGERS OF TOBACCO USE AND URGED TO QUIT:03/30/2017 ARE YOU INTERESTED IN QUITTING?NOT READY TO QUIT COUNSELED THE PATIENT ON SMOKING EFFECTS, EDUCATION [id number]/18/2017 ALCOHOL SCREENING DID YOU HAVE A DRINK CONTAINING ALCOHOL IN THE PAST YEAR?YES HOW OFTEN DID YOU HAVE A DRINK CONTAINING ALCOHOL IN THE PAST YEAR?MONTHLY OR LESS (1 POINT) POINTS1 INTERPRETATIONNEGATIVE CAFFEINE CAFFEINE USE?YES HOW OFTEN AND HOW MUCH? DAILY [employer] OCCUPATION: WORKS LIFTING VERY HEAVY TIRES DAILY. NONDENOMINATIONAL [id number] NONE LEARNING BARRIERS / SPECIAL NEEDS BARRIERS TO LEARNING?NO HEARING IMPAIRED?NO VISION IMPAIRED?YES :CORRECTIVE LENSES WEARS CONTACTS COGNITIVELY IMPAIRED?NO READINESS TO LEARN?YES LEARNING PREFERENCES?NO EMOTIONAL BARRIERS?NO PAIN CLINIC PFS, CLERGY, PUBLIC HEALTH REFERRALS PFS REFERRAL NEEDED?NO CLERGY REFERRAL NEEDED?NO PUBLIC HEALTH REFERRAL NEEDED?NO WAS THE PROVIDER NOTIFIED OF ANY PERTINENT INFO?NO HAS THE PATIENT BEEN EDUCATED REGARDING HIS/HER PLAN OF CARE?YES HAS THE PATIENT BEEN EDUCATED REGARDING PAIN, THE RISK FOR PAIN, THE IMPORTANCE OF EFFECTIVE PAIN MANAGEMENT, AND THE PAIN ASSESSMENT PROCESS?YES PATIENT: ____. ADVANCE DIRECTIVES HEALTH CARE PROXY?NO WOULD YOU LIKE MORE INFORMATION?NO LIVING WILL?NO WOULD YOU LIKE MORE INFORMATION?NO SMOKING OCC CIGARS. HOSPITALIZATION/MAJOR DIAGNOSTIC PROCEDURE CELLULITIS 01/2015 REVIEW OF SYSTEMS REVIEWED BY: PROVIDER: ROSENDO LAFLEUR . CONSTITUTIONAL: ANY CHANGE IN YOUR MEDICAL CONDITION? NO . CHILLS NO . FEVER NO . INFECTION: DO YOU HAVE NEW INFECTIONS? NO . DO YOU HAVE HISTORY OF MRSA? NO . MUSCULOSKELETAL: ANY NEW PATTERNS OF PAIN OR NUMBNESS? YES, LEFT ARM AND FINGERS GO NUMB FROM TIME TO TIME . SYTEMIC LUPUS NO . GASTROENTEROLOGY: ANY NEW CHANGE IN BOWEL CONTROL? NO . BARRETTS ESOPHAGUS NO . CIRRHOSIS NO . HEPATITIS NO . LIVER FAILURE NO . ACID REFLUX YES . UNEXPLAINED WEIGHT LOSS UN-INTENTIONAL, 10 POUNDS IN THE LAST TWO WEEKS/ HAS DIARRHEA . GENITOURINARY: ANY NEW CHANGE IN BLADDER CONTROL? NO . IS THERE A CHANCE YOU COULD BE ? NO . HEMATOLOGY/LYMPH: DO YOU TAKE ANY BLOOD THINNERS? (FOR EXAMPLE- COUMADIN, PLAVIX, AGGRENOX, PLATEL, PRADAXA, OR XARELTO) NO . WHEN WAS YOUR LAST DOSE? DATE: TIME: . LOW PLATELET COUNT NO . SICKLE CELL DISEASE NO . VON WILLIEBRANDS NO . FACTOR V LEIDEN NO . THALLASEMIA NO . ANEMIA NO . EASY BRUISING NO . NEUROLOGY: HAVE YOU FALLEN IN THE PAST 6 MONTHS? NO . ANY NEW EXTREMITY NUMBNESS OR WEAKNESS? NO . HEAD INJURY NO . DEMENTIA NO . CEREBRAL PALSY NO . MULTIPLE SCLEROSIS NO . DIZZINESS NO . HEADACHE TENSION HEADACHES - PREVIOUSLY TREATED WITH FLERIL . STROKES NO . VERTIGO NO . CARDIOLOGY: DO YOU HAVE A PACEMAKER OR DEFIBRILLATOR? NO . ANGINA NO . HEART ATTACK NO . HEART SURGERY NO . CONGESTIVE HEART FAILURE/FLUID OVERLOAD NO . CHEST PAIN NO . HIGH BLOOD PRESSURE NO . IRREGULAR HEART BEAT NO . RESPIRATORY: HAVE YOU BEEN SICK IN THE PAST WEEK? NO . FEVER NO . FLU LIKE SYMPTOMS? NO . CPAP NO . BYPAP NO . ASTHMA NO . EMPHYSEMA NO . CHRONIC LUNG DISEASES NO . SHORTNESS OF BREATH ON EXERTION NO . DO YOU USE ANY TYPE OF TOBACCO (SMOKE, SMOKELESS, CHEW)? YES - OCCASIONAL CIGAR . COUGH YES NO PRODUCTON . SNORING NO . INTEGUMENTARY: DO YOU HAVE ANY RASHES OR OPEN SORES? YES - ON ABD PRESENT SINCE SURGERY . ALLERGIC/IMMUNO: ARE YOU ALLERGIC TO SHELLFISH OR IV DYE? NO . ANY NEW ALLERGIES? NO . PSYCHIATRIC: DO YOU HAVE THOUGHTS OF HURTING YOURSELF OR SOMEONE ELSE? NO . ARE YOU ABUSED, NEGLECTED, OR IN AN UNSAFE ENVIRONMENT? NO . ENDOCRINOLOGY: ARE YOU DIABETIC? NO . THYROID DISORDER NO . OTHER: DO YOU NEED ANY PRESCRIPTIONS? NO . IF YES, PLEASE LIST: ____ . ANY NEW PROBLEMS WITH YOUR MEDICATIONS? NO . WHEN DID YOU LAST EAT? ____ . WHEN DID YOU LAST DRINK? ____ . WHAT DID YOU LAST DRINK? ____ . NAME OF PERSON DRIVING YOU HOME? ____ . DO YOU HAVE ANY OTHER QUESTIONS OR CONCERNS NO . VITAL SIGNS WT 260 LBS, HT 72 IN, BMI 35.26 INDEX, BP 146/79 MM HG, HR 89 /MIN, RR 18 /MIN, TEMP 98.2 F, OXYGEN SAT % 94%, NA INITIALS AD 1514, REVIEWED BY: NL. EXAMINATION GENERAL EXAMINATION: GENERAL APPEARANCE:OVERWEIGHT. PSYCHALERT , ORIENTED X 3 , APPROPRIATE MOOD AND AFFECT , GOOD HISTORIAN. HEENT:NORMOCEPHALIC, NO LYMPHADENOPATHY, NO THYROMEGLY. LUNGS:CLEAR TO AUSCULTATION BILATERALLY, NO WHEEZES, RALES OR RHONCHI. REPORTS ABDOMENAL DISCOMFORT WITH DEEP INSPIRATION. HEART:HEART RATE REGULAR, NORMAL S1S2, NO S3, S4, MURMUR OR RUB. ABDOMEN:SOFT, BOWEL SOUNDS PRESENT IN ALL QUADRANTS. NO INGUINAL HERNIA OR INGUINAL AREA TENDERNESS APPRECIATED. NBILICUS IS NONPROTRUDANT, MILDLY TENDER TO PAPLATION. TENDER AND FIRM TO PALPATION OVER 10:00 POISITION8 CM FROM UMBILICUS. NO ORGANOMEGLY. BOWEL SOUNDS PRESENT IN ALL QUADRANTS.. MUSCULOSKELETAL:MUSCLE STRENGTH TESTING 5/5 BILATERAL UPPER AND LOWER EXTREMITIES. POSTURE UPRIGHT. GAIT NON-ANTALGIC. ASSESSMENTS PERIUMBILICAL ABDOMINAL PAIN - R10.33 (PRIMARY) MYALGIA - M79.1 TREATMENT PERIUMBILICAL ABDOMINAL PAIN START DULOXETINE HCL CAPSULE DELAYED RELEASE PARTICLES, 20 MG, 1 CAPSULE, ORALLY, BEFORE BEDTIME, 30 DAY(S), 30, REFILLS 1 NOTES: DR LAMB DID COME TO THE THE EXAM ROOM AND DID EXAMINE THE PATIENT. PLAN OF CARE WAS DEVISED BY DR LAMB. PATIENT IS TO A GI DOC ABOUT TAKING IBUPROFEN CAN CALL US WITH ANSWER. PROCEDURES PN WORKMANS' COMP OPINION IN YOUR OPINION, WAS THE INCIDENT THAT THE PATIENT DESCRIBED THE COMPETENT MEDICAL CAUSE OF THIS INJURY/ILLNESS? YES ARE THE PATIENT'S COMPLAINTS CONSISTENT WITH HIS/HER HISTORY OF THE INJURY/ILLNESS? YES IS THE PATIENT'S HISTORY OF THE INJURY/ILLNESS CONSISTENT WITH YOUR OBJECTIVE FINDING? YES WHAT IS THE PERCENTAGE OF TEMPORARY IMPAIRMENT? MILD TO MODERATE = 33.33% IS THE PATIENT WORKING? YES DOCTOR ON SITE: ZAIN CASAS MD PROCEDURE CODES FA211 ESTABILISHED PATIENT [facility] CHARGE DISPOSITION & COMMUNICATION FOLLOW UP 3 WEEKS (REASON: WC - ABD PAIN) ELECTRONICALLY SIGNED BY LAKESHIA SAEZ ON 04/28/2017 AT 01:27 PM EDT DISCLAIMER : THIS IS A VISIT SUMMARY EXTRACTED FROM THE [employer] CHART. IT IS NOT A COPY OF THE [employer] PROGRESS NOTE. TIAN
== END ==
LOC: M PAIN 14:45
PROVIDERS: ATTEND Nurse Practitioner Family
DX: G89.29 Other chronic pain (principal); R10.33 Periumbilical pain; M79.1 Myalgia; K21.9 Gastro-esophageal reflux disease without esophagitis; F17.210 Nicotine dependence, cigarettes, uncomplicated; Z79.899 Other long term (current) drug therapy

== ENCOUNTER 2017-04-24 12:47 | Outpatient (CLI) | payer OTHER ==
[~2017-04-24] VITALS: Ht 185.4 cm; Wt 117.9 kg
[2017-04-24] MEDS ORDERED: NS 1,000 ML IV ONE (14:15)
[2017-04-24] MEDS ORDERED: PROPOFOL 200 MG/20 ML VIAL As Ordered ONE ×2 (14:16→14:30)
[2017-04-24] MEDS ORDERED: LIDOCAINE 2% INJ 100 MG/5 ML SDV (FOR ANES.) As Ordered ONE (14:16)
[2017-04-24] MEDS ORDERED: fentaNYL 100 MCG/2 ML INJECTION (J3010) As Ordered ONE (14:25)
--- NOTE | 2017-04-24 14:42 | ROOR ---
Patient Name: Mino Swanson Procedure Date: 04/24/2017 2:14 PM Date of : 1985 Age: 32 Room: [facility] Gender: Male Note Status: Finalized Procedure: Upper GI endoscopy Indications: Suspected gastro-esophageal reflux disease Providers: Gen Jean Baptiste MD Referring MD: JOELLEN DARDEN MD Requesting Provider: Medicines: Monitored Anesthesia Care Complications: No immediate complications. Procedure: Pre-Anesthesia Assessment: - Prior to the procedure, a History and Physical was performed, and patient medications and allergies were reviewed. The patient is competent. The risks and benefits of the procedure and the sedation options and risks were discussed with the patient. All questions were answered and informed consent was obtained. Patient identification and proposed procedure were verified by the physician, the nurse and the timber inspector in the procedure room. Mental Status Examination: alert and oriented. Airway Examination: normal oropharyngeal airway and neck mobility. Respiratory Examination: clear to auscultation. CV Examination: normal. Prophylactic Antibiotics: The patient does not require prophylactic antibiotics. Prior Anticoagulants: The patient has taken no previous anticoagulant or antiplatelet agents. ASA Grade Assessment: III - A patient with severe systemic disease. After reviewing the risks and benefits, the patient was deemed in satisfactory condition to undergo the procedure. The anesthesia plan was to use monitored anesthesia care (MAC). Immediately prior to administration of medications, the patient was re-assessed for adequacy to receive sedatives. The heart rate, respiratory rate, oxygen saturations, blood pressure, adequacy of pulmonary ventilation, and response to care were monitored throughout the procedure. The physical status of the patient was re-assessed after the procedure. The Endoscope was introduced through the mouth, and advanced to the second part of duodenum. The upper GI endoscopy was accomplished without difficulty. The patient tolerated the procedure well. Findings: LA Grade B (one or more mucosal breaks greater than 5 mm, not extending between the tops of two mucosal folds) esophagitis with no bleeding was found in the lower third of the esophagus. Biopsies were taken with a cold forceps for histology. Verification of patient identification for the specimen was done by the physician and nurse using the patient's name, date and medical record number. Estimated blood loss was minimal. Patchy moderate inflammation characterized by erythema and granularity was found in the gastric antrum. Biopsies were taken with a cold forceps for Helicobacter pylori testing. Diffuse moderate inflammation characterized by congestion (edema), erythema and granularity was found in the duodenal bulb. The second portion of the duodenum was normal. Biopsies for histology were taken with a cold forceps for evaluation of celiac disease. Impression: - LA Grade B reflux esophagitis. Rule out Sharpe's esophagus. Biopsied. - Gastritis. Biopsied. - Duodenitis. - Normal second portion of the duodenum. Biopsied. Recommendation: - Patient has a contact number available for emergencies. The signs and symptoms of potential delayed complications were discussed with the patient. Return to normal activities tomorrow. Written discharge instructions were provided to the patient. - Resume previous diet. - Follow an antireflux regimen. - Use Protonix (pantoprazole) 40 mg PO BID for 3 months -- one tablet in morning 1/2 hour before breakfast and one tablet prior to bedtime.. - Repeat upper endoscopy in 6 months to check healing. - Return to GI clinic as previously scheduled on 05/01/2017 at 8:30 AM. - Return to primary care physician. Gen Jean Baptiste MD Gen Jean Baptiste MD 04/24/2017 2:42:27 PM This report has been signed electronically. Number of Addenda: 0 Note Initiated On: 04/24/2017 2:14 PM Estimated Blood Loss: Estimated blood loss was minimal.
[2017-04-24 15:16] VITALS: BP 145/92
== END 2017-04-24 15:35 | disposition home or self-care (01) ==
LOC: M OPP 12:47
PROVIDERS: ATTEND Internal Medicine Gastroenterology
DX: R10.13 Epigastric pain (principal); K21.9 Gastro-esophageal reflux disease without esophagitis; K29.70 Gastritis, unspecified, without bleeding; K29.80 Duodenitis without bleeding; R19.7 Diarrhea, unspecified; K59.00 Constipation, unspecified; R51 Headache; J45.909 Unspecified asthma, uncomplicated; F17.290 Nicotine dependence, other tobacco product, uncomplicated; Z91.030 Bee allergy status; Z79.899 Other long term (current) drug therapy
CPT/HCPCS: 43239; 88305; J3010

== ENCOUNTER → 2017-05-19 | Outpatient (CLI) | payer OTHER ==
[~2017-05-19] MED LIST changes: +BACT800T5 PO; +RANI15TA PO; +TIZA2TA
--- NOTE | 2017-06-10 00:33 | ECWPNPC ---
PATIENT NAME: STEPHAN CHANCE : 1985 GENDER: MALE VISIT DATE: 05/19/2017 DISCHARGE DATE: 05/19/17 1304 VISIT LOCKED DATE TIME: PHYSICIAN: ROSENDO VELASQUEZ RESOURCE: ROSENDO VELASQUEZ REASON FOR APPOINTMENT 1. W/C ABD PAIN HISTORY OF PRESENT ILLNESS TODAY'S VISIT: NOTES: WC FOLLOWUP FOR ABD PAIN. RATES PAIN LEVEL TODAY 5/10 . PAIN IS CENTERED ACROSS THE ABDOMEN. COULD NOT TOLERATE DULOXETIME - BECAME LIGHTHEADED AND DIZZY. DID NOT TOLERATE IT AND STOPPED THIS. WAS SEEN BY GASTROENTEROLOGY AND AN ENDOSCOPE WAS DONE. HAS BEEN TOLD CAN NOT TAKE IBUPROFEN OR OTHER NSAIDS. HAS BEEN SCHEDULED FOR CHOLECYSTECTOMY 06/09/17. HAS BEEN STARTED ON NEW ANTI GERD MEDS.ABD PAIN IS STILL PRIMARILY IN THE RIGHT MID ABD. NOTES THAT IT FEELS TIGHT/LIKE A 1000 SITUPS. HARDEST IS TO LIFT OBJECTS OR WALK LONG DISTANCES. THIS PAIN CAN SLOW ONSET TO SLEEP, RARELY AWAKENS FROM SLEEP. . HISTORY OF PRESENT ILLNESS: PAIN THE PATIENT DESCRIBES THE PAIN... FALL RISK SCREENING: SCREENING :NO FALLS IN THE PAST YEAR CURRENT MEDICATIONS TAKING PROTONIX 40 MG TABLET DELAYED RELEASE 1 TABLET ORALLY ONCE A DAY TAKING RANITIDINE HCL 150 MG CAPSULE 1 CAPSULE AT BEDTIME ORALLY ONCE A DAY NOT-TAKING FLEXERIL 10 MG TABLET 1 TABLET ORALLY THREE TIMES A DAY NEEDED NOT-TAKING TYLENOL 650 MG 1 1 TAB(S) ORALLY EVERY 8 HOURS NEEDED DISCONTINUED DULOXETINE HCL 20 MG CAPSULE DELAYED RELEASE PARTICLES 1 CAPSULE ORALLY BEFORE BEDTIME DISCONTINUED VITAMIN D (ERGOCALCIFEROL) 72870 UNIT CAPSULE 1 CAPSULE ORALLY WEEKLY DISCONTINUED FISH OIL MAXIMUM STRENGTH 1200 MG CAPSULE DELAYED RELEASE 1 CAPSULE ORALLY TWICE A DAY MEDICATION LIST REVIEWED AND RECONCILED WITH THE PATIENT PAST MEDICAL HISTORY HEADACHES GERD ASCVD RISK 4.0% 06/2013 UMBILICAL HERNIA PAIN ALLERGIES NSAIDS: GI BLEED: CONTRAINDICATION SOCIAL HISTORY GENERAL: TOBACCO USE ARE YOU A:CURRENT SMOKER SMOKES CIGARS ARE YOU INTERESTED IN QUITTING?NOT READY TO QUIT COUNSELED THE PATIENT ON SMOKING EFFECTS, EDUCATION [id number]/09/2017 PATIENT COUNSELED ON THE DANGERS OF TOBACCO USE AND URGED TO QUIT:05/19/2017 ENCOURAGED TO CUT DOWN ON SMOKING OR QUIT DUE TPO UP COMING SURGERY. PATIENT ACKNOWLEDGED UNDERSTANDING. BMI CARE GOAL FOLLOW-UP ABOVE NORMAL BMI FOLLOW-UPDIETARY NEEDS EDUCATION ALCOHOL SCREENING DID YOU HAVE A DRINK CONTAINING ALCOHOL IN THE PAST YEAR?YES HOW OFTEN DID YOU HAVE A DRINK CONTAINING ALCOHOL IN THE PAST YEAR?MONTHLY OR LESS (1 POINT) POINTS1 INTERPRETATIONNEGATIVE RECREATIONAL DRUG USE DRUG USE?NO CAFFEINE CAFFEINE USE?YES HOW OFTEN AND HOW MUCH? DAILY PEPSI HIV / HEP-C SCREENING HIV TEST OFFERED TO PATIENT:YES DATE OFFERED:02/18/2013 TEST ACCEPTED:NO REASON:PATIENT DECLINED OCCUPATION: WORKS LIFTING VERY HEAVY TIRES DAILY. MARITAL STATUS: . OTHERS AT HOME: LIVES WITH AND 4 CHILDREN. PETS: 1 CAT, 1 TURTLE. HINDUISM [id number] NONE LANGUAGE LANGUAGES SPOKEN:MAURITANIAN EDUCATION LEVEL OF EDUCATION:FINISHED COLLEGE LEARNING BARRIERS / SPECIAL NEEDS BARRIERS TO LEARNING?NO HEARING IMPAIRED?NO VISION IMPAIRED?YES :CORRECTIVE LENSES WEARS CONTACTS COGNITIVELY IMPAIRED?NO READINESS TO LEARN?YES LEARNING PREFERENCES?NO EMOTIONAL BARRIERS?NO PAIN CLINIC PFS, CLERGY, PUBLIC HEALTH REFERRALS PFS REFERRAL NEEDED?NO CLERGY REFERRAL NEEDED?NO PUBLIC HEALTH REFERRAL NEEDED?NO WAS THE PROVIDER NOTIFIED OF ANY PERTINENT INFO?NO HAS THE PATIENT BEEN EDUCATED REGARDING HIS/HER PLAN OF CARE?YES HAS THE PATIENT BEEN EDUCATED REGARDING PAIN, THE RISK FOR PAIN, THE IMPORTANCE OF EFFECTIVE PAIN MANAGEMENT, AND THE PAIN ASSESSMENT PROCESS?YES PATIENT: ____. ADVANCE DIRECTIVES HEALTH CARE PROXY?NO WOULD YOU LIKE MORE INFORMATION?NO LIVING WILL?NO WOULD YOU LIKE MORE INFORMATION?NO SMOKING OCC CIGARS. REVIEW OF SYSTEMS REVIEWED BY: PROVIDER: ROSENDO LAFLEUR . CONSTITUTIONAL: ANY CHANGE IN YOUR MEDICAL CONDITION? NO . CHILLS NO . FEVER NO . INFECTION: DO YOU HAVE NEW INFECTIONS? NO . DO YOU HAVE HISTORY OF MRSA? NO . MUSCULOSKELETAL: ANY NEW PATTERNS OF PAIN OR NUMBNESS? NO . GASTROENTEROLOGY: ANY NEW CHANGE IN BOWEL CONTROL? YES, HAVING DIARRHEA . GENITOURINARY: ANY NEW CHANGE IN BLADDER CONTROL? NO . IS THERE A CHANCE YOU COULD BE ? NO . HEMATOLOGY/LYMPH: DO YOU TAKE ANY BLOOD THINNERS? (FOR EXAMPLE- COUMADIN, PLAVIX, AGGRENOX, PLATEL, PRADAXA, OR XARELTO) NO . WHEN WAS YOUR LAST DOSE? DATE: TIME: . NEUROLOGY: HAVE YOU FALLEN IN THE PAST 6 MONTHS? YES . ANY NEW EXTREMITY NUMBNESS OR WEAKNESS? NO . CARDIOLOGY: DO YOU HAVE A PACEMAKER OR DEFIBRILLATOR? NO . RESPIRATORY: HAVE YOU BEEN SICK IN THE PAST WEEK? NO . FEVER NO . FLU LIKE SYMPTOMS? NO . COUGH NO . INTEGUMENTARY: DO YOU HAVE ANY RASHES OR OPEN SORES? NO . ALLERGIC/IMMUNO: ARE YOU ALLERGIC TO SHELLFISH OR IV DYE? NO . ANY NEW ALLERGIES? NO . PSYCHIATRIC: DO YOU HAVE THOUGHTS OF HURTING YOURSELF OR SOMEONE ELSE? NO . ARE YOU ABUSED, NEGLECTED, OR IN AN UNSAFE ENVIRONMENT? NO . ENDOCRINOLOGY: ARE YOU DIABETIC? NO . OTHER: DO YOU NEED ANY PRESCRIPTIONS? NO . IF YES, PLEASE LIST: ____ . ANY NEW PROBLEMS WITH YOUR MEDICATIONS? YES, DID NOT DESIRE. DULOXITINE. DIZZY AND LIGHT HEADED. STOPPED TAKING THE MED. . WHEN DID YOU LAST EAT? ____ . WHEN DID YOU LAST DRINK? ____ . WHAT DID YOU LAST DRINK? ____ . NAME OF PERSON DRIVING YOU HOME? ____ . DO YOU HAVE ANY OTHER QUESTIONS OR CONCERNS NO . VITAL SIGNS WT 268.6 LBS, HT 72 IN, BMI 36.42 INDEX, BP 142/87 MM HG, HR 78 /MIN, RR 18 /MIN, TEMP 98.8 F, OXYGEN SAT % 97%, NA INITIALS SC 12:18, REVIEWED BY: CM. ASSESSMENTS PERIUMBILICAL ABDOMINAL PAIN - R10.33 (PRIMARY) MYALGIA - M79.1 TREATMENT PERIUMBILICAL ABDOMINAL PAIN START TIZANIDINE HCL TABLET, 2 MG, 1 TABLET NEEDED, ORALLY, BID, 30 DAY(S), 60 TABLET, REFILLS 1 NOTES: DO NOT TAKE TIZANIDINE WHILE WORKING. USE AT NIGHT FOR ABD PAIN/TIGHNESS. PROCEDURES PN WORKMANS' COMP OPINION IN YOUR OPINION, WAS THE INCIDENT THAT THE PATIENT DESCRIBED THE COMPETENT MEDICAL CAUSE OF THIS INJURY/ILLNESS? YES ARE THE PATIENT'S COMPLAINTS CONSISTENT WITH HIS/HER HISTORY OF THE INJURY/ILLNESS? YES IS THE PATIENT'S HISTORY OF THE INJURY/ILLNESS CONSISTENT WITH YOUR OBJECTIVE FINDING? YES WHAT IS THE PERCENTAGE OF TEMPORARY IMPAIRMENT? MILD TO MODERATE = 33.33% IS THE PATIENT WORKING? YES DOCTOR ON SITE: ZAIN CASAS MD PROCEDURE CODES FA211 ESTABILISHED PATIENT [facility] CHARGE DISPOSITION & COMMUNICATION FOLLOW UP 6 WEEKS (REASON: WC ABD PAIN) ELECTRONICALLY SIGNED BY LAKESHIA SAEZ ON 06/09/2017 AT 08:31 AM EST DISCLAIMER : THIS IS A VISIT SUMMARY EXTRACTED FROM THE [employer] CHART. IT IS NOT A COPY OF THE [employer] PROGRESS NOTE. TIAN
== END ==
LOC: M PAIN 11:45
PROVIDERS: ATTEND Nurse Practitioner Family
DX: G89.29 Other chronic pain (principal); R10.33 Periumbilical pain; M79.1 Myalgia; R51 Headache; K21.9 Gastro-esophageal reflux disease without esophagitis; F17.210 Nicotine dependence, cigarettes, uncomplicated; Z79.899 Other long term (current) drug therapy; Z88.6 Allergy status to analgesic agent

== ENCOUNTER 2017-05-28 16:48 | Emergency (ER) | payer OTHER ==
[~2017-05-28] VITALS: Ht 182.9 cm; Wt 120.5 kg
[~2017-05-28 16:48] MED LIST changes: -BACT800T5 PO; -RANI15TA PO; -TIZA2TA
[2017-05-28] MEDS ORDERED: TIZA2TA (17:00)
[2017-05-28] MEDS ORDERED: RANI15TA PO (17:00)
[2017-05-28] MEDS ORDERED: BACT800T5 PO (17:56)
[2017-05-28 18:45] VITALS: BP 132/76
== END 2017-05-28 19:09 | disposition home or self-care (01) ==
LOC: M ED 16:48
DX: A39.4 Meningococcemia, unspecified (principal); L02.411 Cutaneous abscess of right axilla; Z79.899 Other long term (current) drug therapy; Z91.030 Bee allergy status; F17.210 Nicotine dependence, cigarettes, uncomplicated

== ENCOUNTER 2017-06-19 22:10 | Emergency (ER) | payer OTHER ==
[~2017-06-19] VITALS: Ht 182.9 cm; Wt 120.0 kg
[2017-06-19 22:10] VITALS: BP 171/79
[~2017-06-19 22:10] MED LIST changes: +BACT800T5 PO; +RANI15TA PO; +TIZA2TA
[2017-06-19] MEDS ORDERED: OXYC1SOL3 PO (22:17)
[2017-06-19] MEDS ORDERED: MORPHINE 4 MG/ML 1ML SYRINGE IV PRN (22:45)
[2017-06-19] MEDS ORDERED: ONDANSETRON 4MG/2ML VIAL (J2405) IV ONE (22:45)
[2017-06-19] MEDS ORDERED: NS 1,000 ML IV ONE (22:45)
[2017-06-19 23:12] LABS: BASO # 0.1 10^3/uL (0.0-0.2); BASO % 0.8 % (0.0-1.0); EOS # 0.2 10^3/uL (0.0-0.50); IMMATURE GRANULOCYTE % 0.4 % (0-0); LYMPH # 2.4 10^3/uL (1.5-4.5); MEAN CORPUSCULAR HEMOGLOBIN 31.4 pg (27.0-33.0); MEAN CORPUSCULAR HGB CONC 35.4 g/dl (32.0-36.5); MEAN CORPUSCULAR VOLUME 88.9 fl (80.0-96.0); MONO % 8.3 % (0.0-5.0); NEUTROPHILS # 8.2 10^3/uL (1.8-7.7); NEUTROPHILS % 68.5 % (36.0-66.0); PLATELET COUNT, AUTOMATED 201 10^3/uL (150-450); RED CELL DISTRIBUTION WIDTH 12.2 % (11.5-14.5)
[2017-06-19 23:32] LABS: ALBUMIN 3.9 GM/DL (3.2-5.2); ALBUMIN/GLOBULIN RATIO 1.03 (1.00-1.93); ALKALINE PHOSPHATASE 109 U/L (45-117); ALT/SGPT 58 U/L (12-78); AMYLASE 21 U/L (25-115); ANION GAP 7 MEQ/L (8-16); AST/SGOT 20 U/L (7-37); BILIRUBIN,DIRECT 0.1 MG/DL (0.0-0.2); BILIRUBIN,TOTAL 0.5 MG/DL (0.2-1.0); BLOOD UREA NITROGEN 13 MG/DL (7-18); CALCIUM LEVEL 9.1 MG/DL (8.5-10.1); CARBON DIOXIDE LEVEL 27 MEQ/L (21-32); CHLORIDE LEVEL 102 MEQ/L (98-107); GLOMERULAR FILTRATION RATE > 60.0 (>60); GLUCOSE, FASTING 125 MG/DL (70-105); POTASSIUM SERUM 4.2 MEQ/L (3.5-5.1); SODIUM LEVEL 136 MEQ/L (136-145); TOTAL PROTEIN 7.7 GM/DL (6.4-8.2)
[2017-06-19] MEDS ORDERED: ISOVUE-370 76% 100ML VIAL (Q9967) As Ordered ONE (23:51)
--- NOTE | 2017-06-20 00:50 | REPUSA ---
CLINICAL HISTORY: Abdominal pain. TECHNIQUE: Multiple axial, sagittal and coronal CT images were obtained through the abdomen and pelvi s after administration of intravenous contrast material. COMMENTS: Comparison to prior exam performed on 10/09/2016. Mildly fluid filled small bowel loops in the midabdomen. Mild apparent thickening of the sigmoid colon. The liver is moderately enlarged with decreased attenuation without mass or defect. There is no intra or extrahepatic biliary ductal dilatation. The spleen is normal. The gallbladder is surgically absen t. The pancreas is of normal contour and attenuation characteristics. There is no evidence of adrenal mass. Both kidneys demonstrate prompt and equal nephrograms. The kidneys are normal in size, shape and conf iguration. There is no evidence of renal or ureteral mass. No renal or ureteral calculi are identifie d. There is no hydroureter or hydronephrosis. No evidence for appendicitis. No evidence for small or large bowel obstruction. There is no evidence of abdominal ascites or lymphadenopathy. There is no evidence of intrinsic or extrinsic bladder mass. There is no pelvic ascites or lymphadeno michel. Images of the lung bases show no evidence of pleural or parenchymal mass. There are no pleural effusi ons. Bilateral basilar atelectatic airspace disease. The bony structures are free of lytic or blastic lesions. Multilevel degenerative changes are seen in volving the thoracolumbar spine. Scattered calcifications are seen involving the aorta and major bran ches compatible with atherosclerosis. IMPRESSION: Cholecystectomy. Hepatomegaly with fatty liver infiltration. Mild apparent thickening of the sigmoid colon. Probably secondary to underdistention. Mildly prominent central small bowels which are fluid filled. Probably mild focal ileus. Thank you for your kind referral of this patient.
== END 2017-06-20 01:25 | disposition home or self-care (01) ==
LOC: M ED 22:10
DX: K56.7 Ileus, unspecified (principal); R53.81 Other malaise; Z98.890 Other specified postprocedural states; R06.02 Shortness of breath; J45.909 Unspecified asthma, uncomplicated; G44.209 Tension-type headache, unspecified, not intractable; Z72.0 Tobacco use; Z79.899 Other long term (current) drug therapy; Z91.030 Bee allergy status
CPT/HCPCS: 74177; 80048; 80076; 81001; 82150; 83605; 83690; 85025; 96374; 96375; 99283; J2405; Q9967

== ENCOUNTER 2017-07-12 20:17 | Emergency (ER) | payer OTHER ==
[2017-07-13 00:45] LABS: BASO # 0.1 10^3/uL (0.0-0.2); EOS # 0.6 10^3/uL (0.0-0.50); EOS % 6.1 % (0.0-3.0); HEMATOCRIT 46.6 % (42.0-52.0); HEMOGLOBIN 15.8 g/dl (14.0-18.0); IMMATURE GRANULOCYTE # 0.1 10^3/uL (0-0); IMMATURE GRANULOCYTE % 0.5 % (0-0); LYMPH % 41.8 % (24.0-44.0); MEAN CORPUSCULAR HEMOGLOBIN 30.7 pg (27.0-33.0); MEAN CORPUSCULAR HGB CONC 33.9 g/dl (32.0-36.5); MEAN CORPUSCULAR VOLUME 90.5 fl (80.0-96.0); MONO # 0.7 10^3/uL (0.0-0.8); MONO % 7.5 % (0.0-5.0); NEUTROPHILS # 4.1 10^3/uL (1.8-7.7); NEUTROPHILS % 43.1 % (36.0-66.0); PLATELET COUNT, AUTOMATED 174 10^3/uL (150-450); RED BLOOD COUNT 5.15 10^6/uL (4.30-6.10); RED CELL DISTRIBUTION WIDTH 12.4 % (11.5-14.5); WHITE BLOOD COUNT 9.5 10^3/uL (4.0-10.0)
[2017-07-13 01:04] LABS: ALBUMIN 3.9 GM/DL (3.2-5.2); ALBUMIN/GLOBULIN RATIO 1.11 (1.00-1.93); ALKALINE PHOSPHATASE 115 U/L (45-117); ALT/SGPT 67 U/L (12-78); ANION GAP 4 MEQ/L (8-16); AST/SGOT 24 U/L (7-37); BILIRUBIN,DIRECT < 0.1 MG/DL (0.0-0.2); BILIRUBIN,TOTAL 0.4 MG/DL (0.2-1.0); BLOOD UREA NITROGEN 20 MG/DL (7-18); CARBON DIOXIDE LEVEL 31 MEQ/L (21-32); CHLORIDE LEVEL 104 MEQ/L (98-107); GLOMERULAR FILTRATION RATE > 60.0 (>60); GLUCOSE, FASTING 105 MG/DL (70-105); LIPASE 154 U/L (73-393); POTASSIUM SERUM 4.2 MEQ/L (3.5-5.1); SODIUM LEVEL 139 MEQ/L (136-145); TOTAL PROTEIN 7.4 GM/DL (6.4-8.2)
[2017-07-13] MEDS ORDERED: ISOVUE-370 76% 100ML VIAL (Q9967) As Ordered (01:45)
== END 2017-07-13 03:33 | disposition home or self-care (01) ==
LOC: M ED 07-13 03:33
DX: R10.9 Unspecified abdominal pain (principal); R11.0 Nausea
CPT/HCPCS: Q9967

== ENCOUNTER 2017-07-23 11:23 | Emergency (ER) | payer OTHER ==
[2017-07-23 12:37] LABS: BASO # 0.1 10^3/uL (0.0-0.2); EOS # 0.5 10^3/uL (0.0-0.50); EOS % 6.6 % (0.0-3.0); HEMATOCRIT 42.4 % (42.0-52.0); HEMOGLOBIN 14.9 g/dl (14.0-18.0); IMMATURE GRANULOCYTE # 0.1 10^3/uL (0-0); LYMPH # 2.9 10^3/uL (1.5-4.5); LYMPH % 35.8 % (24.0-44.0); MEAN CORPUSCULAR HEMOGLOBIN 31.2 pg (27.0-33.0); MEAN CORPUSCULAR HGB CONC 35.1 g/dl (32.0-36.5); MEAN CORPUSCULAR VOLUME 88.7 fl (80.0-96.0); MONO # 0.7 10^3/uL (0.0-0.8); MONO % 9.1 % (0.0-5.0); NEUTROPHILS # 3.7 10^3/uL (1.8-7.7); NEUTROPHILS % 46.5 % (36.0-66.0); PLATELET COUNT, AUTOMATED 181 10^3/uL (150-450); RED BLOOD COUNT 4.78 10^6/uL (4.30-6.10); RED CELL DISTRIBUTION WIDTH 12.6 % (11.5-14.5)
[2017-07-23 13:17] LABS: ALBUMIN 3.9 GM/DL (3.2-5.2); ALBUMIN/GLOBULIN RATIO 1.08 (1.00-1.93); ALKALINE PHOSPHATASE 106 U/L (45-117); ALT/SGPT 62 U/L (12-78); AMYLASE 24 U/L (25-115); ANION GAP 8 MEQ/L (8-16); AST/SGOT 26 U/L (7-37); BILIRUBIN,DIRECT 0.1 MG/DL (0.0-0.2); BILIRUBIN,TOTAL 0.4 MG/DL (0.2-1.0); BLOOD UREA NITROGEN 14 MG/DL (7-18); CALCIUM LEVEL 8.8 MG/DL (8.5-10.1); CARBON DIOXIDE LEVEL 27 MEQ/L (21-32); CHLORIDE LEVEL 105 MEQ/L (98-107); CREATININE FOR GFR 0.91 MG/DL (0.70-1.30); GLOMERULAR FILTRATION RATE > 60.0 (>60); GLUCOSE, FASTING 104 MG/DL (70-105); LIPASE 138 U/L (73-393); POTASSIUM SERUM 3.7 MEQ/L (3.5-5.1); SODIUM LEVEL 140 MEQ/L (136-145); TOTAL PROTEIN 7.5 GM/DL (6.4-8.2)
[2017-07-23 13:19] LABS: KETONE, URINE AUTO RFX TRACE mg/dL (NEGATIVE); LEUKOCYTE ESTERASE UR AUTO RFX NEGATIVE (NEGATIVE); MUCUS, URINE RFX SMALL (NEGATIVE); NITRITE, URINE AUTO RFX NEGATIVE (NEGATIVE); RBC, URINE AUTO RFX 4 /HPF (0-3); SPECIFIC GRAVITY UR AUTO RFX 1.028 (1.002-1.035); SQUAM EPITHELIAL CELL UR AURFX 0 /HPF (0-6); WBC, URINE AUTO RFX 2 /HPF (0-3)
[2017-07-23] MEDS: MAGNESIUM CITRATE 300 ML BTL PO (13:45)
== END 2017-07-23 14:04 | disposition home or self-care (01) ==
LOC: M ED 11:23
DX: K59.00 Constipation, unspecified (principal); J45.909 Unspecified asthma, uncomplicated; K21.9 Gastro-esophageal reflux disease without esophagitis; Z91.030 Bee allergy status
CPT/HCPCS: 74019

== ENCOUNTER 2017-08-07 16:20 | Emergency (ER) | payer OTHER ==
[2017-08-07] MEDS: NS 1,000 ML IV (18:21)
[2017-08-07] MEDS: ONDANSETRON 4MG/2ML VIAL (J2405) IV (18:21)
[2017-08-07] MEDS: PANTOPRAZOLE 40MG INJ (PROTONIX) (C9113) IV (18:24)
[2017-08-07 18:27] LABS: BASO # 0.1 10^3/uL (0.0-0.2); BASO % 0.7 % (0.0-1.0); EOS # 0.5 10^3/uL (0.0-0.50); EOS % 5.7 % (0.0-3.0); HEMOGLOBIN 14.7 g/dl (14.0-18.0); IMMATURE GRANULOCYTE # 0.1 10^3/uL (0-0); LYMPH # 2.9 10^3/uL (1.5-4.5); LYMPH % 30.8 % (24.0-44.0); MEAN CORPUSCULAR HEMOGLOBIN 30.8 pg (27.0-33.0); MEAN CORPUSCULAR HGB CONC 34.2 g/dl (32.0-36.5); MEAN CORPUSCULAR VOLUME 90.1 fl (80.0-96.0); MONO # 0.7 10^3/uL (0.0-0.8); MONO % 7.8 % (0.0-5.0); NEUTROPHILS # 5.1 10^3/uL (1.8-7.7); PLATELET COUNT, AUTOMATED 207 10^3/uL (150-450); RED BLOOD COUNT 4.77 10^6/uL (4.30-6.10); RED CELL DISTRIBUTION WIDTH 12.5 % (11.5-14.5); WHITE BLOOD COUNT 9.4 10^3/uL (4.0-10.0)
[2017-08-07] MEDS: MORPHINE 2 MG/ML 1ML SYRINGE IV (18:27)
[2017-08-07 18:40] LABS: KETONE, URINE AUTO RFX NEGATIVE (NEGATIVE); LEUKOCYTE ESTERASE UR AUTO RFX NEGATIVE (NEGATIVE); NITRITE, URINE AUTO RFX NEGATIVE (NEGATIVE); RBC, URINE AUTO RFX 2 /HPF (0-3); SPECIFIC GRAVITY UR AUTO RFX 1.028 (1.002-1.035); SQUAM EPITHELIAL CELL UR AURFX 0 /HPF (0-6); WBC, URINE AUTO RFX 0 /HPF (0-3)
[2017-08-07 18:44] LABS: LACTIC ACID SEPSIS PROTOCOL 1.3 MMOL/L (0.4-2.0)
[2017-08-07 18:45] LABS: ALBUMIN 3.9 GM/DL (3.2-5.2); ALBUMIN/GLOBULIN RATIO 0.98 (1.00-1.93); ALKALINE PHOSPHATASE 113 U/L (45-117); ALT/SGPT 62 U/L (12-78); AMYLASE 26 U/L (25-115); ANION GAP 6 MEQ/L (8-16); AST/SGOT 25 U/L (7-37); BILIRUBIN,DIRECT < 0.1 MG/DL (0.0-0.2); BILIRUBIN,TOTAL 0.3 MG/DL (0.2-1.0); BLOOD UREA NITROGEN 14 MG/DL (7-18); CALCIUM LEVEL 8.9 MG/DL (8.5-10.1); CARBON DIOXIDE LEVEL 29 MEQ/L (21-32); CHLORIDE LEVEL 105 MEQ/L (98-107); CREATININE FOR GFR 0.88 MG/DL (0.70-1.30); GLOMERULAR FILTRATION RATE > 60.0 (>60); GLUCOSE, FASTING 86 MG/DL (70-100); LIPASE 152 U/L (73-393); POTASSIUM SERUM 3.9 MEQ/L (3.5-5.1); SODIUM LEVEL 140 MEQ/L (136-145); TOTAL PROTEIN 7.9 GM/DL (6.4-8.2)
[2017-08-07 18:46] LABS: INR 0.94; PROTHROMBIN TIME 12.7 SECONDS (12.4-14.5)
[2017-08-07 18:47] LABS: PARTIAL THROMBOPLASTIN TIME 30.3 SECONDS (26.8-37.9)
[2017-08-07] MEDS ORDERED: ISOVUE-370 76% 100ML VIAL (Q9967) As Ordered (18:55)
== END 2017-08-07 20:19 | disposition home or self-care (01) ==
LOC: M ED 16:20
DX: K29.70 Gastritis, unspecified, without bleeding (principal); J45.909 Unspecified asthma, uncomplicated; K21.9 Gastro-esophageal reflux disease without esophagitis; F17.290 Nicotine dependence, other tobacco product, uncomplicated
CPT/HCPCS: C9113

== ENCOUNTER → 2017-08-13 | Outpatient (REF) | payer OTHER | LOC: M LAB REF 17:43 | DX: R10.13 Epigastric pain (principal) ==

== ENCOUNTER 2017-09-22 10:42 | Day surgery (SDC) | payer OTHER ==
[2017-09-22] MEDS: NS 1,000 ML IV (11:01)
[2017-09-22] MEDS ORDERED: LIDOCAINE 2% INJ 100 MG/5 ML SDV (FOR ANES.) As Ordered (12:19)
[2017-09-22] MEDS ORDERED: PROPOFOL 200 MG/20 ML VIAL As Ordered (12:19)
== END 2017-09-22 12:30 | disposition home or self-care (01) ==
LOC: M OPP 10:42
DX: R19.7 Diarrhea, unspecified (principal); D12.7 Benign neoplasm of rectosigmoid junction; K64.8 Other hemorrhoids; K21.0 Gastro-esophageal reflux disease with esophagitis; K22.8 Other specified diseases of esophagus; R11.10 Vomiting, unspecified; R10.13 Epigastric pain; F17.290 Nicotine dependence, other tobacco product, uncomplicated; Z91.030 Bee allergy status; Z79.899 Other long term (current) drug therapy
CPT/HCPCS: 45385

== ENCOUNTER → 2017-11-30 | Outpatient (CLI) | payer MEDICAID, OTHER, SELFPAY ==
[~2017-11-30] MED LIST changes: -ACET30TAB PO; -BACT800T5 PO; -CLIN150C14 PO; -CYCL10TA PO; -DULO1CAP PO; +E-Z-GAS II EFFERVESCENT PACKET (SODIUM BICARB./CITRIC ACID/SIMETHICONE) As Ordered; +E-Z-HD 98% w/w 340GM SUSP BTL As Ordered; +E-Z-PAQUE 96% w/w SUSP 176GM BTL As Ordered; -MOBI4TAB PO; -PANT40TA2 PO; -PROT20TA11 PO; -RANI15TA PO; -TIZA2TA; -TYLE325T5 PO
== END ==
LOC: M RAD 09:11
DX: K21.0 Gastro-esophageal reflux disease with esophagitis (principal)
CPT/HCPCS: 74220

== ENCOUNTER 2018-04-19 14:51 | Emergency (ER) | payer MEDICAID ==
[2018-04-19 15:48] LABS: BASO # 0.1 10^3/uL (0.0-0.2); BASO % 0.7 % (0.0-1.0); EOS # 0.4 10^3/uL (0.0-0.50); EOS % 3.8 % (0.0-3.0); HEMATOCRIT 43.2 % (42.0-52.0); IMMATURE GRANULOCYTE % 0.6 % (0-3.0); LYMPH # 2.8 10^3/uL (1.5-4.5); LYMPH % 27.7 % (24.0-44.0); MEAN CORPUSCULAR HEMOGLOBIN 31.3 pg (27.0-33.0); MEAN CORPUSCULAR HGB CONC 34.7 g/dl (32.0-36.5); MONO # 0.8 10^3/uL (0.0-0.8); MONO % 7.5 % (0.0-5.0); NEUTROPHILS # 6.1 10^3/uL (1.8-7.7); NEUTROPHILS % 59.7 % (36.0-66.0); PLATELET COUNT, AUTOMATED 161 10^3/uL (150-450); RED CELL DISTRIBUTION WIDTH 12.5 % (11.5-14.5); WHITE BLOOD COUNT 10.2 10^3/uL (4.0-10.0)
[2018-04-19 15:54] LABS: KETONE, URINE AUTO RFX NEGATIVE (NEGATIVE); LEUKOCYTE ESTERASE UR AUTO RFX NEGATIVE (NEGATIVE); NITRITE, URINE AUTO RFX NEGATIVE (NEGATIVE); RBC, URINE AUTO RFX 1 /HPF (0-3); SPECIFIC GRAVITY UR AUTO RFX 1.017 (1.002-1.035); SQUAM EPITHELIAL CELL UR AURFX 0 /HPF (0-6); WBC, URINE AUTO RFX 1 /HPF (0-3)
[2018-04-19 15:57] LABS: INR 0.96; PROTHROMBIN TIME 12.9 SECONDS (12.1-14.4)
[2018-04-19 15:58] LABS: PARTIAL THROMBOPLASTIN TIME 28.5 SECONDS (25.4-37.6)
[2018-04-19 16:23] LABS: ALBUMIN 3.7 GM/DL (3.2-5.2); ALBUMIN/GLOBULIN RATIO 1.23 (1.00-1.93); ALKALINE PHOSPHATASE 114 U/L (45-117); ALT/SGPT 41 U/L (12-78); AMYLASE 26 U/L (25-115); ANION GAP 3 MEQ/L (8-16); AST/SGOT 17 U/L (7-37); BILIRUBIN,DIRECT < 0.1 MG/DL (0.0-0.2); BILIRUBIN,TOTAL 0.3 MG/DL (0.2-1.0); BLOOD UREA NITROGEN 10 MG/DL (7-18); CALCIUM LEVEL 8.3 MG/DL (8.5-10.1); CARBON DIOXIDE LEVEL 29 MEQ/L (21-32); CHLORIDE LEVEL 108 MEQ/L (98-107); CREATININE FOR GFR 0.85 MG/DL (0.70-1.30); GLOMERULAR FILTRATION RATE > 60.0 (>60); GLUCOSE, FASTING 106 MG/DL (70-100); LIPASE 121 U/L (73-393); POTASSIUM SERUM 3.9 MEQ/L (3.5-5.1); SODIUM LEVEL 140 MEQ/L (136-145); TOTAL PROTEIN 6.7 GM/DL (6.4-8.2)
[2018-04-19 16:23] LABS: LACTIC ACID SEPSIS PROTOCOL 0.9 MMOL/L (0.4-2.0)
== END 2018-04-19 17:10 | disposition home or self-care (01) ==
LOC: M ED 14:51
DX: K52.9 Noninfective gastroenteritis and colitis, unspecified (principal); G44.209 Tension-type headache, unspecified, not intractable; J45.909 Unspecified asthma, uncomplicated; F17.290 Nicotine dependence, other tobacco product, uncomplicated; Z91.030 Bee allergy status
CPT/HCPCS: 82150

== ENCOUNTER → 2020-07-04 | Outpatient (CLI) | payer OTHER ==
[~2020-07-04] MED LIST changes: +ACET-716 PO; +BACT800T5 PO; +BENT10CA PO; +CLIN150C14 PO; +CYCL-707 PO; +DULO1CAP4 PO; -E-Z-GAS II EFFERVESCENT PACKET (SODIUM BICARB./CITRIC ACID/SIMETHICONE) As Ordered; -E-Z-HD 98% w/w 340GM SUSP BTL As Ordered; -E-Z-PAQUE 96% w/w SUSP 176GM BTL As Ordered; +MIRA3350 PO; +MOBI4TAB PO; +NEXI40CA PO; +OXYC1SOL3 PO; +PANT40TA29 PO; +PROT20TA11 PO; +PROTPAK PO; +RANI15TA PO; +TIZA2TA; +TYLE325T5 PO; +ZOFR4TAB14 PO
--- NOTE | 2020-07-04 10:21 | REP ---
INDICATION: HISTORY OF [facility] LAB 1ST XR 2ND COMPARISON: 11/14/2015 TECHNIQUE: PA and lateral. FINDINGS: The mediastinum and cardiac silhouette are normal. The lung wynne are clear and without acute consolidation, effusion, or pneumothorax. The skeletal structures are intact and normal. IMPRESSION: No acute cardiopulmonary process. <Electronically signed by Shailesh Nunez > 07/04/20 1017
--- NOTE | 2020-07-04 10:30 | REP ---
INDICATION: SWELLING OF WRIST; [facility] 1ST XR 2ND COMPARISON: None. TECHNIQUE: AP, lateral, bilateral oblique views right and left wrist. FINDINGS: The carpal bones, surrounding osseous structures, soft tissues, and joint spaces are symmetric and normal. No significant degenerative changes are appreciated. No evidence for acute or healed injury. IMPRESSION: Normal bilateral wrist radiograph series. <Electronically signed by Shailesh Nunez > 07/04/20 [id number]
[2020-07-04 11:07] LABS: MAGNESIUM LEVEL 2.2 MG/DL (1.8-2.4); PHOSPHORUS LEVEL 3.2 MG/DL (2.5-4.9)
[2020-07-05 09:51] LABS: TOTAL 25(OH) VITAMIN D 10.1 NG/ML (30.0-100.0)
[2020-07-10 12:08] LABS: ANTI CENTROMERE ANTIBODY <0.2 AI (0.0-0.9); ANTI SCLERODERMA ANTIBODIES <0.2 AI (0.0-0.9); ANTI-HISTONE ANTIBODIES 0.6 Units (0.0-0.9); BETA-2 GLYCOPROTEIN I ABY IGA <9 (0-25); BETA-2 GLYCOPROTEIN I ABY IGG <9 (0-20); BETA-2 GLYCOPROTEIN I ABY IGM <9 (0-32); CARDIOLIPIN IGA ANTIBODY <9 APL U/mL (0-11); CARDIOLIPIN IGG ANTIBODY <9 GPL U/mL (0-14); CARDIOLIPIN IGM ANTIBODY <9 MPL U/mL (0-12); COMPLEMENT TOTAL (CH50) > 60 U/mL (>41)
[2020-07-12 11:38] LABS: DRVV SCREEN 49.8 SEC
[2020-07-12 11:41] LABS: PTT LUPUS TYPE ANTICOAG SCREEN 1.2 (0-1.2)
[2020-07-12 11:50] LABS: DRVV CONFIRM 37.2 SEC
[2020-07-12 11:54] LABS: NORMALIZED RATIO 1.2 (0.00-1.20)
== END ==
LOC: M LAB 09:30
PROVIDERS: ATTEND Internal Medicine
DX: M25.439 Effusion, unspecified wrist (principal); Z86.79 Personal history of other diseases of the circulatory system; M79.10 Myalgia, unspecified site; R76.8 Other specified abnormal immunological findings in serum

== ENCOUNTER → 2020-07-25 | Outpatient (CLI) | payer OTHER ==
[~2020-07-25] MED LIST changes: -CLIN150C14 PO; +CLIN150C15 PO
--- NOTE | 2020-07-26 14:55 | SLEEPHOME ---
DATE: 07/25/2020 ORDERED BY: Veronica Pichardo MD Diagnostic home sleep testing was performed due to concern for the obstructive sleep apnea syndrome in this patient presenting with chronic fatigue. For testing, a nocturnal T3 respiratory monitoring device was used. Continuous record was made of pulse, oxygen saturation, air flow, chest and abdominal strain, and body position. Nine hours and 59 minutes of data were reviewed. There were 5 hours and 55 minutes marked as time in bed. During the interval marked time in bed, there were 82 respiratory events identified of 10 seconds in duration or greater for a respiratory event index of 13.8. The events were obstructive, 7 mixed and central apneas were seen. Baseline pulse rate was 71 beats per minute. Pulse rate ranged 52 to 96. Baseline saturation was 94%. Saturations fell as low as 88% and testing was performed in both the supine and nonsupine positions. IMPRESSION: Abnormal home sleep testing with repetitive respiratory events and oxygen desaturations to 88% with a respiratory event index of 13.8 is consistent with the obstructive sleep apnea syndrome. RECOMMENDATION: The patient should be encouraged to undergo referral for formal sleep evaluation. %%CCLIST%%
== END ==
LOC: M SLEEP HO 10:16
PROVIDERS: ATTEND Internal Medicine
DX: R53.82 Chronic fatigue, unspecified (principal)

== ENCOUNTER → 2020-08-23 | Outpatient (CLI) | payer OTHER ==
[~2020-08-23] MED LIST changes: +D200CAP2 PO; +FOLI1TAB11 PO; +LISI10TA22 PO; +VITA50005 PO
== END ==
LOC: M LABSMTC 09:59
PROVIDERS: ATTEND Anesthesiology
DX: Z01.818 Encounter for other preprocedural examination (principal)

== ENCOUNTER 2020-08-28 06:32 | Day surgery (SDC) | payer OTHER ==
[~2020-08-28] VITALS: Ht 182.9 cm; Wt 118.4 kg
[2020-08-28] MEDS ORDERED: LR 1,000 ML IV SCH (07:00)
[2020-08-28] MEDS ORDERED: LR 1,000 ML IV ONE (07:00)
--- OUTSIDE RECORDS SUMMARY | 2020-08-28 07:06 | CCD ---
Author Author [facility] Organization [facility] Address Unknown Phone Unavailable Care Team Providers Care Multimedia Developer Name Role Phone Veronica Pichardo Unavailable PROBLEMS Type Condition ICD9-CM Code [id number] Code Onset Dates Condition S tatus SNOMED Code Notes Problem Generalized abdominal pain R10.84 Active 18692 4006 Problem Gallbladder colic K80.20 Active 342710652 Problem Myalgia M79.1 Active 51613730 Problem Chronic fatigue R53.82 Active 35430548 Problem Tension-type headache, unspecified, not intractable G44.209 Active 498866082 Problem Vitamin D deficiency E55.9 Active 37285890 Problem Gastro-esophageal reflux disease without esophagitis K21.9 Active 654350357 Problem Periumbilical abdominal pain R10.33 Active 443 086196 Problem Paresthesias R20.2 Active 37028750 Problem Undifferentiated connective tissue disease M35.9 Active 306763363 Problem Carpal tunnel syndrome of left wrist G56.02 Act rosalba [id number] ALLERGIES Allergen (clinical drug ingredient) Drug/Non Drug Allergy do cumented on EMR Reaction Allergy Type Onset Date Status Bee sting Unknown Non Drug Allergy Active ENCOUNTERS from 1983 to 2020-07-22 Encounter Location Date Provider Diagnosis [facility] [address] [place] [address] 04 Jul, 2020 Veronica Pichardo Undifferentiated connective tissue disea se M35.9 ; Carpal tunnel syndrome of left wrist G56.02 ; Vitamin D deficiency E55.9 ; Chronic fatigue R53.82 ; History of cardiomegaly Z86.79 ; Swelling of wrist, unspecified laterality M25.439 ; Positive RADHA (antinuclear antibody) R76.8 ; Myalgia M79.10 ; Paresthesias R20.2 and Alopecia L65.9 IMMUNIZATIONS Vaccine Route Administration Date Status TD Adult 0.5mL (Tetanus) Unknown Feb 10, 2011 Adminis tered Influenza (6mo & up) Fluzone Unknown Apr 30, 2016 Adm inistered Influenza (6mo & up) Fluzone IM Intramuscular Jun 17, 2013 Ad ministered SOCIAL HISTORY Tobacco Use: Social History Observation Description Date Details (start date - stop date) Current Smoker Sex Assigned At : Social History Observation Description Sex Assigned At Unknown Education: Question Answer Notes Level of Education: Finished College Language: Question Answer Notes Languages spoken: Hungarian Denominational: Question Answer Notes Denominational 33 None Sexual Hx: Question Answer Notes Had sex in the last 12 months (vaginal, oral, or anal)? Yes Have you ever had an STD? No Prevention Strategies discussed: Other with Women only Use protection? No Alcohol Screening: Question Answer Notes Did you have a drink containing alcohol in the past year? Ye s Points 1 Interpretation Negative How often did you have six or more drinks on one occas ion in the past year? Never (0 points) How many drinks did you have on a typica l day when you were drinking in the past year? 1 or 2 (0 points) How often did you have a drink containing alcohol in t he past year? Monthly or less (1 point) BMI Care Goal Follow-Up Question Answer Notes Above Normal BMI Follow-Up Dietary needs education Tobacco Use: Question Answer Notes Are you a: current smoker cigars, history of s moking for 16 years - 2 cigars/day REASON FOR REFERRAL No Information VITAL SIGNS Weight 267.8 lbs Jul, Weight-kg 121.5 kg Jul, Height 72 in Jul, BMI 36.32 kg/m2 Jul, Heart Rate 95 /min Jul, Respiratory Rate 18 /min Jul, Temperature 98.4 degrees Fahrenheit Jul, Oximetry 99 Jul, Blood pressure systolic 132 mm Hg Jul, Blood pressure diastolic 80 mm Hg Jul, MEDICATIONS Medication SIG (Take, Route, Frequency, Duration) Notes Start Da te End Date Status CarpalAid Large - as directed as directed for 99 days 10 J 2020 Active Folic Acid 1 MG 1 tablet Orally Once a day for 30 day(s) 1 Jun, Active Lisinopril 10 MG 1 tablet Orally Once a day for 30 day(s) Active Ergocalciferol 50 MCG (2000 UT) 1 tablet Orally Once a day for 3 0 day(s) Jul, Active Vitamin D (Ergocalciferol) 1.25 MG (28987 UT) 1 capsul e Orally Weekly for 30 day(s) Jun, Active PROCEDURES No Information RESULTS Component Value Reference Range Home Sleep Test Reviewed date:07/17/2020 07:36:52 Interpretation: Performing Lab:[facility], [place] [address] REASON FOR VISIT C/o Chest pain ongoing for about 3-4 days now. C/o Left hand pain MEDICAL (GENERAL) HISTORY Type Description Date Medical History Headaches Medical History GERD Medical History ASCVD risk 4.0% (06/2013) Medical History Hiatal and umbilical hernia Medical History Colonoscopy (07/2017) Medical History Hx Dysphagia Medical History Hx Left hand/wrist pain Medical History Hx Nonscarring hair loss, unspecified Medical History Hx Pilonidal cyst Medical History Hx Cellulitis Medical History Positive RADHA Surgical History Pilonidal cyst repair 10/03/14 Surgical History Hernia repair- 2 umbilical and 1 hiatal hernia repair 05/23/16 Surgical History Cholecystectomy 2017 Surgical History Fundoplication (stomach wrap, [facility] [place], [place]) 2018 Hospitalization History Cellulitis 01/2015 Hospitalization History Surgical related Goals Section No Information Health Concerns No Information MEDICAL EQUIPMENT No Information MENTAL STATUS No Information FUNCTIONAL STATUS No Information ASSESSMENTS Encounter Date Diagnosis Assessment Notes Treatment Notes Treatm ent Clinical Notes Jul, Undifferentiated connective tissue disease (ICD- 10 - M35.9) The clinical presentation is consistent with undifferentiated connective tissue disease (positive RADHA (1:80 (homogeneous, speckled), 1:160 (homogeneous)), alopecia, arthralgias, and photosensitivity). At this time, the patient has clinical findings associated with an underlying rheumatologic disease; however, it does not currently fit into a differentiated connective tissue disease. - Discussed the laboratory results. - Counseling provided on the disease course, symptomatology, complications, and prognosis of undifferentiated connective tissue disease (uCTD). - Discussed the importance of a healthy, well balanced life style and making healthy choices. - Recommended and discussed several lifestyle interventions to improve his uCTD. a. Discussed the importance of sleep; without a good night sleep, it will be extremely difficult to successfully treat the undifferentiated connective tissue disease. Will proceed with a home sleep study referral. The sleep referral packet will be provided for a sleep study referral, after the completion of the sleep study. b. Discussed the importance of a well balanced diet, which has increased fruits and vegetables, decreased processed foods, and sugar intake. Encouraged the incorporation of the Mediterranean diet into his lifestyle. c. Discussed the importance of physical activity and incorporating a consistent exercise regimen. d. Discussed the importance of good mental health, emotional stability, and stress management in his uCTD. Stress management information will be provided. - Information will be provided about undifferentiated connective tissue disease. - At this time, will defer the initiation of immunosuppressant therapy and strongly encouraged the patient to optimize the lifestyle modifications. Will provide information about a potential future treatment option, Plaquenil. - He was agreeable and expressed understanding of the plan. All questions and concerns were addressed. Jul, Carpal tunnel syndrome of left wrist (ICD-10 - G 56.02) Please perform the exercises on both wrists for 10 minutes. EMG results were discussed with the patient consistent with left carpal tunnel syndrome; exercises for carpal tunnel syndrome provided. Recommended the performance of the exercises daily for 10 minutes. Information concerning CTS given to the patient. A left wrist splint will be prescribed to the patient. Jul, Vitamin D deficiency (ICD-10 - E55.9) Clinical presentation is exacerbated by vitamin D deficiency. Low vitamin D can be associated with fatigue, muscle weakness, muscle pain. The patient is actively supplemented with vitamin D 50,000 units x 16 weeks, which will improve the musculoskeletal health. Will also initiate vitamin D 2000 units daily. Discussed foods with increased amounts of vitamin D (including fatty fish). Information concerning vitamin D will be provided. Jul, Chronic fatigue (ICD-10 - R53.82) Given the worsening chronic fatigue, exhaustion, snoring, dozing off while watching television, and non-refreshing sleep, will proceed with a sleep study. Jul, History of cardiomegaly (ICD-10 - Z86.79) History of cardiomegaly on chest x-ray in 01/2018; repeat chest x-ray findings were not consistent with cardiomegaly, no further investigation, at this time. Jul, Swelling of wrist, unspecified laterality (ICD-1 0 - M25.439) Given the bilateral wrist swelling (no significant tenderness present), bilateral wrist imaging was obtained and unremarkable. Jul, Positive RADHA (antinuclear antibody) (ICD-10 - R7 6.8) Positive RADHA is related to the new diagnosis of undifferentiated connective tissue disease. All laboratory results were discussed with the patient. Jul, Myalgia (ICD-10 - M79.10) Myalgias likely related to the vitamin D deficiency; expect improvement in myalgia with the vitamin D supplementation. Discussed the muscle pain related to the sternum, which appears to be an acute muscle injury. Instructed Mr. Chance to contact his PCP if the pain worsens over time. Jul, Paresthesias (ICD-10 - R20.2) Given the paresthesias of the upper extremities and abnormal neurological physical examination of the left lower extremity, EMG revealed left carpal tunnel syndrome. Jul, Alopecia (ICD-10 - L65.9) Given the significant alopecia, continue folic acid 1 mg daily for improvement in hair loss. Will monitor the symptomatology closely. Jul, Other Total time is s pent on the date of the encounter: 67 minutes PLAN OF TREATMENT Medication Medication Name Sig Start Date Stop Date CarpalAid Large - as directed as directed for 99 days Jul, 21 Ergocalciferol 50 MCG (1999 UT) 1 tablet Orally Once a day f or 30 day(s) Jul, Treatment Notes Assessment Notes Clinical Notes Undifferentiated connective tissue disease The clinical presentation is consistent with undifferentiated connective tissue disease (positive RADHA (1:80 (homogeneous, speckled), 1:160 (homogeneous)), alopecia, arthralgias, and photosensitivity). At this time, the patient has clinical findings associated with an underlying rheumatologic disease; however, it does not currently fit into a differentiated connective tissue disease.- Discussed the laboratory results.- Counseling provided on the disease course, symptomatology, complications, and prognosis of undifferentiated connective tissue disease (uCTD).- Discussed the importance of a healthy, well balanced life style and making healthy choices.- Recommended and discussed several lifestyle interventions to improve his uCTD.a. Discussed the importance of sleep; without a good night sleep, it will be extremely difficult to successfully treat the undifferentiated connective tissue disease. Will proceed with a home sleep study referral. The sleep referral packet will be provided for a sleep study referral, after the completion of the sleep study.b. Discussed the importance of a well balanced diet, which has increased fruits and vegetables, decreased processed foods, and sugar intake. Encouraged the incorporation of the Mediterranean diet into his lifestyle.c. Discussed the importance of physical activity and incorporating a consistent exercise regimen.d. Discussed the importance of good mental health, emotional stability, and stress management in his uCTD. Stress management information will be provided.- Information will be provided about undifferentiated connective tissue disease.- At this time, will defer the initiation of immunosuppressant therapy and strongly encouraged the patient to optimize the lifestyle modifications. Will provide information about a potential future treatment option, Plaquenil.- He was agreeable and expressed understanding of the plan. All questions and concerns were addressed. Carpal tunnel syndrome of left wrist Please perform th e exercises on both wrists for 10 minutes. EMG results were discussed with the sherif ent consistent with left carpal tunnel syndrome; exercises for carpal tunnel syndrome provided. Recommended the performance of the exercises daily for 10 minutes. Information concerning CTS given to the patient. A left wrist splint will be prescribed to the patient. Vitamin D deficiency Clinical presentati on is exacerbated by vitamin D deficiency. Low vitamin D can be associated with fatigue, muscle weakness, muscle pain. The patient is actively supplemented with vitamin D 50,000 units x 16 weeks, which will improve the musculoskeletal health. Will also initiate vitamin D 2000 units daily. Discussed foods with increased amounts of vitamin D (including fatty fish). Information concerning vitamin D will be provided. Chronic fatigue Given the worsening chronic fatigue, exhaustion, snoring, dozing off while watching television, and non-refreshing sleep, will proceed with a sleep study. History of cardiomegaly History of cardi omegaly on chest x-ray in 01/2018; repeat chest x-ray findings were not consistent with cardiomegaly, no further investigation, at this time. Swelling of wrist, unspecified laterality Given the bilateral wrist swelling (no significant tenderness present), bilateral wrist imaging was obtained and unremarkable. Positive RADHA (antinuclear antibody) Posi tive RADHA is related to the new diagnosis of undifferentiated connective tissue disease. All laboratory results were discussed with the patient. Myalgia Myalgias likely rela dione to the vitamin D deficiency; expect improvement in myalgia with the vitamin D supplementation. Discussed the muscle pain related to the sternum, which appears to be an acute muscle injury. Instructed Mr. Chance to contact his PCP if the pain worsens over time. Paresthesias Given the paresthesi as of the upper extremities and abnormal neurological physical examination of the left lower extremity, EMG revealed left carpal tunnel syndrome. Alopecia Given the significan t alopecia, continue folic acid 1 mg daily for improvement in hair loss. Will monitor the symptomatology closely. Next Appt Details 6 Months Reason:UCTD, Carpal Tunnel Synd eli Provider Name:Veronica Pichardo, 2021-01-11 04:45:00 PM, [address] [place] [address], [id number], Follow Up:6 MonthsUCTD, Carpal Tunnel Syndrome Insurance Providers Payer Name Payer Address Payer Phone Insured Name Patient Relati onship to Insured Coverage Start Date Coverage End Date KELLY RUSSO [address] [facility] [phone] STEPHAN CHANCE self
--- OUTSIDE RECORDS SUMMARY | 2020-08-28 07:06 | CCD ---
Author Author [facility] Organization [facility] Address Unknown Phone Unavailable Care Team Providers Care Nurses' Association Counselor Name Role Phone Veronica Pichardo Unavailable PROBLEMS Type Condition ICD9-CM Code CBN20-KE Code Onset Dates Condition S tatus W/U Status Risk SNOMED Code Notes Problem Gallbladder colic K80.20 Active confirmed 26 5501120 Problem Myalgia M79.1 Active confirmed 81966006 Problem Periumbilical abdominal pain R10.33 Active confirme d 729149391 Problem Gastro-esophageal reflux disease without esophagitis K21.9 Active confirmed 196974080 Problem Vitamin D deficiency E55.9 Active confirmed 36067325 Problem Generalized abdominal pain R10.84 Active confirmed 980423837 Problem Obstructive sleep apnea G47.33 Active confirmed 39776179 Problem Tension-type headache, unspecified, not intractable G44.209 Active confirmed 506689602 Problem Paresthesias R20.2 Active confirmed 3789905 4 Problem Carpal tunnel syndrome of left wrist G56.02 Act rosalba confirmed 831297229439919 Problem Chronic fatigue R53.82 Active confirmed 8422 9001 Problem Undifferentiated connective tissue disease M35.9 Active confirmed 907230954 ALLERGIES Allergen (clinical drug ingredient) Drug/Non Drug Allergy do cumented on EMR Reaction Allergy Type Onset Date Status Bee sting Unknown Non Drug Allergy Active ENCOUNTERS from 1983 to 2020-08-22 Encounter Location Date Provider Diagnosis [facility] [address] [place] [address] 06 Aug, 2020 Veronica Pichardo Obstructive sleep apnea G47.33 IMMUNIZATIONS Vaccine Route Administration Date Status TD [...] College Language: Question Answer Notes Languages spoken: Congolese Restorationism: Question Answer Notes Restorationism 33 None Sexual Hx: Question Answer Notes [...] REASON FOR REFERRAL No Information VITAL SIGNS No information MEDICATIONS Medication SIG (Take, Route, Frequency, Duration) Notes Start Da te End Date Status CarpalAid Large - as directed as directed for 99 days 10 2020 Active Folic Acid 1 MG 1 tablet Orally Once a day for 30 day(s) 1 Jun, Active Lisinopril 10 MG 1 tablet Orally Once a day for 30 day(s) Active Ergocalciferol 50 MCG (2000 UT) 1 tablet Orally Once a day for 3 0 day(s) Jul, Active Vitamin D (Ergocalciferol) 1.25 MG (36242 UT) 1 capsul e Orally Weekly for 30 day(s) Jun, Active PROCEDURES No Information RESULTS No Results REASON FOR VISIT Abnormal Home Sleep Study MEDICAL (GENERAL) HISTORY Type Description Date Medical [...] hiatal hernia repair 05/23/16 Surgical History Cholecystectomy 2018 Surgical History Fundoplication (stomach wrap, [facility] [place], [place]) 2018 Hospitalization History Cellulitis 01/2015 Hospitalization History Surgical related Goals Section No Information Health Concerns No Information MEDICAL EQUIPMENT No Information MENTAL STATUS No Information FUNCTIONAL STATUS No Information ASSESSMENTS Encounter Date Diagnosis Assessment Notes Treatment Notes Treatm ent Clinical Notes Aug, Obstructive sleep apnea (ICD-10 - G47.33) PLAN OF TREATMENT Medication Medication Name Sig Start Date Stop Date CarpalAid Large - as directed as directed for 99 days Jul, Ergocalciferol 50 MCG (1999 UT) 1 tablet Orally Once a day f or 30 day(s) Jul, Next Appt Details Provider Name:Veronica Pichardo, 2021-01-11 04:45:00 PM, [address] [place] [address], [id number], Insurance Providers Payer Name Payer Address Payer Phone Insured Name Patient Relati onship to Insured Coverage Start Date Coverage End Date KELLY RUSSO [address] [facility] [id number] [phone] STEPHAN SWANSON self
--- OUTSIDE RECORDS SUMMARY | 2020-08-28 07:07 | CCD | Continuity of Care Document ---
Author Author Mino ALEMAN M.D. Organization Unknown Address [address] [place] [address] Phone [phone] Care Team Providers Care Veterinary Manager Name Role Phone Fidel Aleman M.D. AUTM [phone] [facility] AUTM Unavailable [facility] Rheumatology AUTM [phone] Problems Description No Information Available Social History Type Date Description Comments Sex Unknown Tobacco Use Start: Unknown Never Smoked Cigarettes Tobacco Use Start: Unknown Currently Smokes an Occasional C igar Tobacco Use Start: Unknown Never Smoked A Pipe Tobacco Use Start: Unknown Never Used Smokeless Tobacco ETOH Use Rarely consumes alcohol Tobacco Use Start: Unknown Patient has never smoked Recreational Drug Use Denies Drug Use Allergies, Adverse Reactions, Alerts Active Allergies Reaction Severity Comments Date Bee Pollen 04/11/2020 NKFA 04/11/2020 Medications Active Medications SIG Qnty Indications Ordering Provide r Date Lisinopril 10mg Tablets 1 by mouth every day 90tabs Fidel Aleman MD 05/14/2020 History Medications No Active Medications Unknown - 05/14/2020 Immunizations Description No Information Available Vital Signs Date Vital Result Comment 05/21/2020 7:25am BP Systolic 140 mmHg BP Diastolic 80 mmHg Heart Rate 79 /min Body Temperature 97.6 F Respiratory Rate 16 /min O2 % BldC Oximetry 99 % 05/14/2020 8:53am BP Systolic 150 mmHg BP Diastolic 88 mmHg BP Systolic Recheck 146 mmHg BP Diastolic Recheck 88 mmHg Heart Rate 80 /min Body Temperature 98.0 F Respiratory Rate 16 /min O2 % BldC Oximetry 98 % Weight 264.00 lb Weight 119.750 kg Height 72 inches 6'0" BMI (Body Mass Index) 35.8 kg/m2 BSA (Body Surface Area) 2.40 m2 Results Test Acquired Date Facility Test Result H/L Range Note Laboratory test finding 07/04/2020 [facility] Phosphorus Level 3.2 mg/dL Normal 2.5-4.9 CPK Creatine Phosphokinase 79 U/L Normal 39-308 Magnesium Level 2.2 mg/dL Normal 1.8-2.4 Iron (Fe) 72 g/dL Normal 65-175 Complement C3 108 mg/dL Normal 90-180 Complement C4 25 mg/dL Normal 10-40 Vitamin B12 Level 276 pg/mL Normal 247-911 1 Total 25(Oh) Vitamin D 10.1 NG/ML Low 30.0-100.0 Beta-2 Glycoprotein 1 Kayla Bismark 07/04/2020 [facility] Beta-2 Glycoprotein I Kayla Igg <9 Normal 0-20 2 Beta-2 Glycoprotein I Kayla Iga <9 Normal 0-25 3 Beta-2 Glycoprotein I Kayla Igm <9 Normal 0-32 4 Laboratory test finding 07/04/2020 [facility] Anti-Histone Antibodies 0.6 units Normal 0.0-0.9 5 Anti Scleroderma Antibodies <0.2 AI Normal 0.0-0.9 Anti-Cardiolipin Antibodies 07/04/2020 [facility] Cardiolipin Iga Antibody <9 APLU/mL Normal 0-11 6 Cardiolipin Igg Antibody <9 GPLU/mL Normal 0-14 7 Cardiolipin Igm Antibody <9 MPLU/mL Normal 0-12 8 Laboratory test finding 07/04/2020 [facility] Complement Total (CH50) > 60 U/mL Normal >41 9 Anti Centromere Antibody <0.2 AI Normal 0.0-0.9 Laboratory test finding 05/14/2020 [facility] l Cyclic Citrullinate Peptide Ig 11 units 0-19 10, 11 Lupus Type Anticoag 05/14/2020 [facility] Dilute ProthrombinTime(dPT) 42.8 sec 0.0-55.0 dPT Confirm Ratio 1.11 Ratio 0.00-1.40 Thrombin Time 17.2 sec 0.0-23.0 PTT-LA 33.8 sec 0.0-51.9 dRVVT 44.4 sec 0.0-47.0 Lupus ReflexInterpretation Comment: 1 2 SLE Profile C 05/14/2020 [facility] Sjogren's Anti-SS-A <0.2 AI 0.0-0.9 Sjogren's Anti-SS-B <0.2 AI 0.0-0.9 DOCUMENT REVIEWER Antibodies <0.2 AI 0.0-0.9 Chamberlain Antibodies <0.2 AI 0.0-0.9 Anti-Dna (DS) Ab Qn 6 IU/mL 0-9 13 Laboratory test finding 05/14/2020 [facility] l Ra Quant <10 IU/mL 0 - 14 Anca 05/14/2020 [facility] Cytoplasmic (C-Anca) <1:20 titer Neg:<1:20 Perinuclear (P-Anca) <1:20 titer Neg:<1:20 14 Atypical pANCA <1:20 titer Neg:<1:20 15 Cristina Antibody 05/14/2020 [facility] Antinuclear Antibodies,Ifa Positive Abnormal 1 6 Homogeneous Pattern 1:80 Speckled Pattern 1:80 Note: COMMENT 17 CBC W/Automated Diff 04/20/2020 [facility] CBC W/Automated Diff (SEE NOTE) 18, 19 WBC 6.5 10^3/uL 4.2 - 11.0 RBC 5.01 10^6/uL 4.50 - 6.30 Hemoglobin 15.3 g/dL 14.0 - 16.0 Hematocrit 43.9 % 41.0 - 51.0 MCV 87.6 fL 80.0 - 94.0 MCH 30.5 pg 27.0 - 34.0 MCHC 34.9 g/dL 31.0 - 36.0 RDW 12.6 % 11.5 - 14.8 Platelets 156 10^3/uL 150 - 450 MPV 10.7 fL High 7.4 - 10.4 Neut 47.9 % 37.0 - 80.0 Lymph 37.1 % 25.0 - 40.0 [place] 8.7 % High 3.0 - 8.0 Eos 4.5 % 0.0 - 7.0 Baso 0.9 % 0.0 - 2.0 %Ig 0.9 % High 0.0 - 0.0 %NRBC 0.0 % 0.0 - 0.0 #Neut 3.09 10^3/uL 2.00 - 6.90 #Lymph 2.39 10^3/uL 0.60 - 3.40 #[place] 0.56 10^3/uL 0.00 - 0.90 #Eos 0.29 10^3/uL 0.00 - 0.70 #Baso 0.06 10^3/uL 0.00 - 0.20 #Ig 0.06 10^3/uL 0.00 - 0.10 #NRBC 0.00 10^3/uL 0.00 - 0.00 Manual Diff NOT INDICATED RBC Morph NOT INDICATED Comprehensive Metabolic Panel 04/20/2020 [facility] ospital Comprehensive Metabo (SEE NOTE) 20 Sodium 139 mEq/L 134 - 153 Potassium 4.4 mEq/L 3.6 - 5.0 Chloride 103 mEq/L 98 - 107 Co2 26 mEq/L 22 - 30 Glucose 107 mg/dL 65 - 110 BUN 11 mg/dL 7 - 21 Creatinine 0.9 mg/dL 0.7 - 1.5 BUN/Creat 12 8 - 27 Total Protein 7.1 g/dL 6.3 - 8.2 Albumin 4.7 g/dL 3.9 - 5.0 Globulin 2.4 GM/DL 2.4 - 3.2 A/G Ratio 2.0 0.8 - 2.0 Calcium 9.2 mg/dL 8.4 - 10.2 Total Bili 0.7 mg/dL 0.2 - 1.3 Alkaline Phos 91 U/L 38 - 126 Sgot/Ast 31 U/L 5 - 40 SGPT/Alt 55 U/L 7 - 56 Anion Gap 10.0 mmol/L 8.0 - 16.0 Age 35 yrs Non-Aa GFR >60 mL/min Afr Amer GFR >60 mL/min 21 Sedimentation Rate 04/20/2020 [facility] Sed Rate 4 mm/hr 0 - 15 Sed Rate Reenter 4 Laboratory test finding 04/20/2020 [facility] CRP (High Sensitivity) 4.45 mg/L High 1.00 - 3.00 22 Cve Panel 04/20/2020 [facility] Cve Panel (SEE NOTE) 23 Cholesterol 154 mg/dL 131 - 200 Triglycerides 223 mg/dL High 35 - 160 HDL 31 mg/dL 29 - 86 LDL 89 mg/dL 65 - 175 Risk Factor 5.0 High 3.4 - 4.9 LDL/HDL 2.87 1.00 - 3.55 24 Laboratory test finding 04/20/2020 [facility] Hgba1c 5.6 % 4.4 - 6.1 25 TSH Highly Sensitive 0.64 uIU/mL 0.47 - 5.01 T4 - Free 1.31 ng/dL 0.93 - 1.70 Urinalysis 04/20/2020 [facility] Urinalysis (SEE NOTE) 26 Source R Color yellow Normal: Yellow Clarity clear Normal: Clear Spec Nora 1.015 1.001 - 1.030 pH 6 5 - 9 Glucose NORM Normal: Negative Bilirubin NEG Normal: Negative Ketone NEG Normal: Negative Protein NEG Normal: Negative Nitrite NEG Normal: Negative Blood NEG Normal: Negative Leuk Est NEG Normal: Negative Urobilinogen 1 less than 1.0 mg/dL Microscopic Not Indicate Cristina Antibody 04/20/2020 [facility] Antinuclear Antibodies,Ifa Positive Abnormal 2 7 Homogeneous Pattern 1:160 High Note: COMMENT 28 1 VITAMIN B12 NORMAL RANGE NORMAL 247 - 911 PG/ML INDETERMINATE 211 - 246 PG/ML DEFICIENT LESS THAN 211 PG/ML 2 Result Units: GPI IgG units . The reference interval reflects a 3SD or 99th percentile interval, which is thought to represent a potentially clinically significant result in accordance with the International Consensus Statement on the classification criteria for definitive antiphospholipid syndrome (APS). J Thromb Haem 2006;4:295-306. 3 Result Units: GPI IgA units . The reference interval reflects a 3SD or 99th percentile interval, which is thought to represent a potentially clinically significant result in accordance with the International Consensus Statement on the classification criteria for definitive antiphospholipid syndrome (APS). J Thromb Haem 2006;4:295-306. 4 Result Units: GPI IgM units . The reference interval reflects a 3SD or 99th percentile interval, which is thought to represent a potentially clinically significant result in accordance with the International Consensus Statement on the classification criteria for definitive antiphospholipid syndrome (APS). J Thromb Haem 2006;4:295-306. 5 Negative <1.0 Weak Positive 1.0 - 1.5 Moderate Positive 1.6 - 2.5 Strong Positive >2.5 6 Negative: <12 Indeterminate: 12 - 20 Low-Med Positive: >20 - 80 High Positive: >80 7 Negative: <15 Indeterminate: 15 - 20 Low-Med Positive: >20 - 80 High Positive: >80 8 Negative: <13 Indeterminate: 13 - 20 Low-Med Positive: >20 - 80 High Positive: >80 9 Age Male Female 1 - 30 days Not Estab. Not E stab. 31 days - 6 months >32 >20 7 months - 17 years >39 >39 >17 years >41 >41 NOTE: The adult (">17 years") reference interval range is used to flag abnormals on this report. If the patient is 17 years old or younger, use the table above to determine out of range values. Performed at: - [facility] [address] [id number] Skates Operator: Vielka Harrison MD, Phone: [phone] Performed at: - [facility] [address] [id number] Skates Operator: Suki You MD, Phone: [phone] .~.~<DG1.3.1>R76.0</DG1.3.1><DG1.3.1>R47.02</DG1.3.1><DG1.3.1>R47.02</DG1.3.1><D G1.3 11 Negative <20 Weak positive 20 - 39 Moderate positive 40 - 59 Strong positive >59 12 No lupus anticoagulant was d etected. 13 Negative <5 Equivocal 5 - 9 Positive >9 14 The presence of positive flu orescence exhibiting P-ANCA or C-ANCA patterns alone is not specific for the diagnosis of Melissa's Granulomatosis (WG) or microscopic polyangiitis. Decisions about treatment should not be based solely on ANCA IFA results. The International ANCA Group Consensus recommends follow up testing of positive sera with both MA-3 and MPO-ANCA enzyme immunoassays. As many as 5% serum samples are positive only by EIA. Ref. AM J Clin Pathol 1999;111:507-513. 15 The atypical pANCA pattern h as been observed in a significant percentage of patients with ulcerative colitis, primary sclerosing cholangitis and autoimmune hepatitis. 16 Negative <1:80 Borderline 1:80 Positive >1:80 17 A positive CRISTINA result may oc cur in healthy individuals (low titer) or be associated with a variety of diseases. See interpretation chart which is not all inclusive: Pattern Antigen Detected Suggested Disease Association --------- Homogeneous DNA(ds,ss), SLE - High titers Nucleosomes, Histones Drug-induced SLE --------- Speckled Sm, DOCUMENT REVIEWER, SCL-70, SLE,MCTD,PSS (diffuse form), SS-A/SS-B Sjogrens --------- Nucleolar SCL-70, PM-1/SCL High titers Scleroderma, PM/DM --------- Centromere Centromere PSS (limited form) w/Crest syndrome variable --------- Nuclear Dot [id number] Primary Biliary Cirrhosis --------- Nuclear GP210, Primary Biliary Cirrhosis Membrane massiel A,B,C --------- 18 FASTING~.~.~<DG1.3.1>Z00.00</DG1.3.1><DG1.3.1>Z00.00</DG1.3.1><DG1.3.1>L65.9</DG 1.3.1><DG1.3 19 COMPLETE BLOOD COUNT 20 COMPREHENSIVE METABOLIC PANE L 21 Male GFR Interprentation 20-49 yrs >60 mL/min Normal 50-59 yrs >56 mL/min Normal 60-69 yrs >49 mL/min Normal 70-79yrs >42 mL/min Normal 80 and above >35 mL/min Normal Female GFR Interpretation 20-39 yrs >60 mL/min Normal 40-49 yrs >58 mL/min Normal 50-59 yrs >51 mL/min Normal 60-69 yrs >45 mL/min Normal 70-79 yrs >39 mL/min Normal 80 and above >32 mL/min Normal 22 CDC/S HS-CRP CUT-OFF: RELATIVE RISK: <1.0 mg/L Low 1.0 - 3.0 mg/L A verage >3.0 mg/L High Optimally, the average of HS-CRP results repeated two weeks apart should be used for risk assessment. 23 LIPID PANEL 24 CVE RISK CHOL/HDL LDL/HDL MEN: 1/2 AVERAGE 3.43 1.00 AVERAGE 4.97 3.55 2X AVERAGE 9.55 6.25 3X AVERAGE 23.99 7.99 WOMEN: 1/2 AVERAGE 3.27 1.47 AVERAGE 4.44 3.22 2X AVERAGE 7.05 5.03 3X AVERAGE 11.04 6.14 25 {A1] {HB] 26 URINALYSIS 27 Negative <1:80 Borderline 1:80 Positive >1:80 28 A positive CRISTINA result may oc cur in healthy individuals (low titer) or be associated with a variety of diseases. See interpretation chart which is not all inclusive: Pattern Antigen Detected Suggested Disease Association --------- Homogeneous DNA(ds,ss), SLE - High titers Nucleosomes, Histones Drug-induced SLE --------- Speckled Sm, DOCUMENT REVIEWER, SCL-70, SLE,MCTD,PSS (diffuse form), SS-A/SS-B Sjogrens --------- Nucleolar SCL-70, PM-1/SCL High titers Scleroderma, PM/DM --------- Centromere Centromere PSS (limited form) w/Crest syndrome variable --------- Nuclear Dot Sp100,d01-[id number] Primary Biliary Cirrhosis --------- Nuclear GP210, Primary Biliary Cirrhosis Membrane massiel A,B,C --------- Procedures Date Code Description Status 04/11/2020 01236 Admin Patient Focused Health Ris k Assessment Instrument Completed 04/11/2020 04559 Brief Emotional/Beha v Assessment W/ Scoring Doc Per Standard Inst Completed Medical Devices Description No Information Available Encounters Description No Information Available Assessments Date Code Description Provider 05/14/2020 K44.9 Diaphragmatic hernia without obs truction or gangrene Savannah Khoury PA-C 05/14/2020 R47.02 Dysphasia SORAYA Scott 05/14/2020 K43.9 Ventral hernia without obstructi on or gangrene Savannah Khoury PA-C 05/14/2020 M79.642 Pain in left hand Savannah SHAHRZAD Khoury 05/14/2020 R76.0 Raised antibody titer Savannahsevero Ramos amSHAHRZAD 05/14/2020 E78.1 Pure hyperglyceridemia Savannahsevero chakrabortySHAHRZAD 05/14/2020 R03.0 Elevated blood-press ure reading, without diagnosis of hypertension Savannah Khoury PA-C 04/11/2020 Z00.00 Encounter for sabrina l adult medical examination without abnormal findings Fidel Aleman MD 04/11/2020 R47.02 Dysphasia Fidel Aleman MD 04/11/2020 K43.9 Ventral hernia without obstructi on or gangrene Fidel Aleman MD 04/11/2020 M79.642 Pain in left hand Fidel howard MD 04/11/2020 L65.9 Nonscarring hair loss, unspecifi ed Fidel Aleman MD 04/11/2020 E66.9 Obesity, unspecified Fidel Noguera P MD linda Plan of Treatment Future Appointment(s):* 11/19/2020 7:00 am - Fidel Aleman MD at [facility] Functional Status Description No Information Available Mental Status Description No Information Available Referrals Refer to Reason for Referral Status Appt Date [facility] Rheumatology 35 year old male with persis tently positive CRISTINA. Please evaluate and treat. Thank you. Closed [address] [facility] [address] [place], [place] [id number] [phone] Joaquim Marlow MD 35 year old male with hiatal hernia, repaired by your office, date unknown. Patient reports dysphagia now. Esophogram shows mild hiatal hernia and GERD. Patient would like referral back to see you. Thank you. Closed [address] [place] [phone]
--- OUTSIDE RECORDS SUMMARY | 2020-08-28 07:09 | CCD | Continuity of Care Document ---
Author Author Mnio GUERRA M.D. Organization Unknown Address [address] [place] [address] Phone [phone] Care Team Providers Care Instrument Repair Specialist Name Role Phone Veronica Pichardo M.D. AUTM [phone] Fidel Aleman M.D. AUTM [phone] Problems Active Problems Provider Date Tension-type headache Elvia Augustine M.D. Onset: 03/01/2015 Migraine without aura Elvia Augustine M.D. Onset: 03/01/2015 Carpal tunnel syndrome Elvia Augustine M.D. Onset: 03/01/2015 Ulnar neuropathy Elvia Augustine M.D. Onset: 03/01/2015 Social History Type Date Description Comments Sex Unknown ETOH Use Negative For Denies alcohol use Tobacco Use Start: Unknown Patient has never smoked Recreational Drug Use Never Used Drugs Allergies, Adverse Reactions, Alerts Description No Known Drug Allergies Medications Active Medications SIG Qnty Indications Ordering Provide r Date Pantoprazole Sodium 40mg Tablets D R 1 by mouth every day Elvia Augustine M.D. 03/20/2015 Immunizations Description No Information Available Vital Signs Date Vital Result Comment 03/20/2015 11:02am BP Systolic 120 mmHg BP Diastolic 70 mmHg Heart Rate 74 /min Respiratory Rate 16 /min Height 72 inches 6'0" Weight 265.00 lb BMI (Body Mass Index) 35.9 kg/m2 [place] Body Weight 178 lb 03/01/2015 9:23am BP Systolic 125 mmHg BP Diastolic 80 mmHg Heart Rate 78 /min Respiratory Rate 16 /min Height 72 inches 6'0" Weight 265.00 lb BMI (Body Mass Index) 35.9 kg/m2 [place] Body Weight 178 lb Results Description No Information Available Procedures Date Code Description Status 07/05/2020 19536 Nerve Conduction 13+ Studies Com pleted 07/05/2020 00571 Needle Electromyography Complete , Five Or More Muscles Studied Completed 07/05/2020 06057 Needle Electromyography Complete , Five Or More Muscles Studied Completed 07/04/2020 06067 Nerve Conduction 13+ Studies Com pleted 07/04/2020 86736 Needle Electromyogra phy Non Extremity Done With Nerve Conduction Completed 07/04/2020 80922 Needle Electromyography Complete , Five Or More Muscles Studied Completed 07/04/2020 53148 Needle Electromyography Complete , Five Or More Muscles Studied Completed Medical Devices Description No Information Available Encounters Description No Information Available Assessments Date Code Description Provider 07/05/2020 M79.606 Pain in leg, unspecified Ana L les, M.D. 07/05/2020 M54.16 Radiculopathy, lumbar region Abd ul Catie, M.D. 07/05/2020 M54.5 Low back pain Ana Catie, M.D . 07/05/2020 R20.2 Paresthesia of skin Ana Catie, M.D. 07/04/2020 G56.03 Carpal tunnel syndrome, bilatera l upper limbs Ana Catie, M.D. 07/04/2020 M54.2 Cervicalgia Ana Catie, M.D . 07/04/2020 R20.2 Paresthesia of skin Ana Catie, M.D. 07/04/2020 G56.01 Carpal tunnel syndrome, right up per limb Ana Catie, M.D. 07/04/2020 G56.02 Carpal tunnel syndrome, left upp er limb Ana Catie, M.D. Plan of Treatment No Information Available Functional Status Description No Information Available Mental Status Description No Information Available Referrals Description No Information Available
--- OUTSIDE RECORDS SUMMARY | 2020-08-28 07:09 | CCD | Continuity of Care Document ---
Author Author Mino GUERRA M.D. Organization Unknown Address [address] [place] [address] Phone [phone] Care Team Providers Care Science Liaison Name Role Phone Veronica Pichardo M.D. AUTM [phone] Fidel Aleman M.D. AUTM [phone] Problems Active Problems Provider Date Tension-type headache [...] lb BMI (Body Mass Index) 35.9 kg/m2 [place] Body Weight 178 lb 03/01/2015 9:23am BP Systolic 125 mmHg BP Diastolic 80 mmHg Heart Rate 78 /min Respiratory Rate 16 /min Height 72 inches 6'0" Weight 265.00 lb BMI (Body Mass Index) 35.9 kg/m2 [place] Body Weight 178 lb Results Description No Information Available Procedures Date Code Description Status 07/05/2020 89587 Nerve Conduction 13+ Studies Com pleted 07/05/2020 46207 Needle Electromyography Complete , Five Or More Muscles Studied Completed 07/05/2020 66216 Needle Electromyography Complete , Five Or More Muscles Studied Completed 07/04/2020 43711 Nerve Conduction 13+ Studies Com pleted 07/04/2020 93195 Needle Electromyogra phy Non Extremity Done With Nerve Conduction Completed 07/04/2020 50036 Needle Electromyography Complete , Five Or More Muscles Studied Completed 07/04/2020 75878 Needle Electromyography Complete , Five Or More Muscles Studied Completed Medical Devices Description No Information Available Encounters Description No Information Available Assessments Date Code Description Provider 07/05/2020 M79.606 Pain in leg, unspecified Ana L les, M.D. 07/05/2020 M54.16 Radiculopathy, lumbar region Abd ul Catie, M.D. 07/05/2020 M54.5 Low back pain Ana Catie, M.D . 07/05/2020 R20.2 Paresthesia of skin Ana Catie, M.D. 07/05/2020 M79.604 Pain in right leg Ana Catie, M .D. 07/05/2020 M79.605 Pain in left leg Ana Catie, M. D. 07/04/2020 G56.03 Carpal tunnel syndrome, bilatera l [...]
--- OUTSIDE RECORDS SUMMARY | 2020-08-28 07:10 | CCD | Continuity of Care Document ---
Author Author Mino ALEMAN M.D. Organization Unknown Address [address] [place] [address] Phone [phone] Care Team Providers Care Service Restorer Emergency Name Role Phone Fidel Aleman M.D. AUTM [phone] [facility] AUTM Unavailable [facility] Rheumatology AUTM [phone] Problems Description No Information Available Social History [...] H/L Range Note Laboratory test finding 07/04/2020 [facility] Phosphorus Level 3.2 mg/dL Normal 2.5-4.9 CPK Creatine Phosphokinase 79 U/L Normal 39-308 Magnesium Level 2.2 mg/dL Normal 1.8-2.4 Iron (Fe) 72 g/dL Normal 65-175 Complement C3 108 mg/dL Normal 90-180 Complement C4 25 mg/dL Normal 10-40 Vitamin B12 Level 276 pg/mL Normal 247-911 1 Total 25(Oh) Vitamin D 10.1 NG/ML Low 30.0-100.0 Cristina Antibody 05/14/2020 [facility] Antinuclear Antibodies,Ifa Positive Abnormal 2 , 3 Homogeneous Pattern 1:80 Speckled Pattern 1:80 Note: COMMENT 4 Anca 05/14/2020 [facility] Cytoplasmic (C-Anca) <1:20 titer Neg:<1:20 Perinuclear (P-Anca) <1:20 titer Neg:<1:20 5 Atypical pANCA <1:20 titer Neg:<1:20 6 Laboratory test finding 05/14/2020 [facility] Ra Quant <10 IU/mL 0 - 14 SLE Profile C 05/14/2020 [facility] Sjogren's Anti-SS-A <0.2 AI 0.0-0.9 Sjogren's Anti-SS-B <0.2 AI 0.0-0.9 VACUUM WORKER Antibodies <0.2 AI 0.0-0.9 Chamberlain Antibodies <0.2 AI 0.0-0.9 Anti-Dna (DS) Ab Qn 6 IU/mL 0-9 7 Lupus Type Anticoag 05/14/2020 [facility] Dilute ProthrombinTime(dPT) 42.8 sec 0.0-55.0 dPT Confirm Ratio 1.11 Ratio 0.00-1.40 Thrombin Time 17.2 sec 0.0-23.0 PTT-LA 33.8 sec 0.0-51.9 dRVVT 44.4 sec 0.0-47.0 Lupus ReflexInterpretation Comment: 8 Laboratory test finding 05/14/2020 [facility] l Cyclic Citrullinate Peptide Ig 11 units 0-19 9 Cristina Antibody 04/20/2020 [facility] Antinuclear Antibodies,Ifa Positive Abnormal 1 0, 11 Homogeneous Pattern 1:160 High Note: COMMENT 12 Urinalysis 04/20/2020 [facility] Urinalysis (SEE NOTE) 13 Source R Color yellow Normal: Yellow Clarity clear Normal: Clear Spec Fitzwilliam 1.015 1.001 - 1.030 pH 6 5 - 9 Glucose NORM Normal: Negative Bilirubin NEG Normal: Negative Ketone NEG Normal: Negative Protein NEG Normal: Negative Nitrite NEG Normal: Negative Blood NEG Normal: Negative Leuk Est NEG Normal: Negative Urobilinogen 1 less than 1.0 mg/dL Microscopic Not Indicate Laboratory test finding 04/20/2020 [facility] Hgba1c 5.6 % 4.4 - 6.1 14 TSH Highly Sensitive 0.64 uIU/mL 0.47 - 5.01 T4 - Free 1.31 ng/dL 0.93 - 1.70 Cve Panel 04/20/2020 [facility] Cve Panel (SEE NOTE) 15 Cholesterol 154 mg/dL 131 - 200 Triglycerides 223 mg/dL High 35 - 160 HDL 31 mg/dL 29 - 86 LDL 89 mg/dL 65 - 175 Risk Factor 5.0 High 3.4 - 4.9 LDL/HDL 2.87 1.00 - 3.55 16 Laboratory test finding 04/20/2020 [facility] CRP (High Sensitivity) 4.45 mg/L High 1.00 - 3.00 17 Sedimentation Rate 04/20/2020 [facility] Sed Rate 4 mm/hr 0 - 15 Sed Rate Reenter 4 Comprehensive Metabolic Panel 04/20/2020 [facility] Comprehensive Metabo (SEE NOTE) 18 Sodium 139 mEq/L 134 - 153 Potassium [...] >60 mL/min Afr Amer GFR >60 mL/min 19 CBC W/Automated Diff 04/20/2020 [facility] CBC W/Automated Diff (SEE NOTE) 20 WBC 6.5 10^3/uL 4.2 - 11.0 RBC [...] 80.0 Lymph 37.1 % 25.0 - 40.0 Davidson 8.7 % High 3.0 - 8.0 Eos 4.5 % 0.0 - 7.0 Baso 0.9 % 0.0 - 2.0 %Ig 0.9 % High 0.0 - 0.0 %NRBC 0.0 % 0.0 - 0.0 #Neut 3.09 10^3/uL 2.00 - 6.90 #Lymph 2.39 10^3/uL 0.60 - 3.40 #Davidson 0.56 10^3/uL 0.00 - 0.90 #Eos 0.29 10^3/uL 0.00 - 0.70 #Baso 0.06 10^3/uL 0.00 - 0.20 #Ig 0.06 10^3/uL 0.00 - 0.10 #NRBC 0.00 10^3/uL 0.00 - 0.00 Manual Diff NOT INDICATED RBC Morph NOT INDICATED 1 VITAMIN B12 NORMAL RANGE NORMAL 247 - 911 PG/ML INDETERMINATE 211 - 246 PG/ML DEFICIENT LESS THAN 211 PG/ML 2 .~.~<DG1.3.1>R76.0</DG1.3.1><DG1.3.1>R47.02</DG1.3.1><DG1.3.1>R47.02</DG1.3.1><D G1.3 3 Negative <1:80 Borderline 1:80 Positive >1:80 4 A positive CRISTINA result may oc cur in healthy individuals (low titer) or be associated with a variety of diseases. See interpretation chart which is not all inclusive: Pattern Antigen Detected Suggested Disease Association --------- Homogeneous DNA(ds,ss), SLE - High titers Nucleosomes, Histones Drug-induced SLE --------- Speckled Sm, VACUUM WORKER, SCL-70, SLE,MCTD,PSS (diffuse form), SS-A/SS-B Sjogrens --------- Nucleolar SCL-70, PM-1/SCL High titers Scleroderma, PM/DM --------- Centromere Centromere PSS (limited form) w/Crest syndrome variable --------- Nuclear Dot Sp100,l58-vwxfia Primary Biliary Cirrhosis --------- Nuclear GP210, Primary Biliary Cirrhosis Membrane massiel A,B,C --------- 5 The presence of positive flu orescence exhibiting P-ANCA or C-ANCA patterns alone is not specific for the diagnosis of Melissa's Granulomatosis (WG) or microscopic polyangiitis. Decisions about treatment should not be based solely on ANCA IFA results. The International ANCA Group Consensus recommends follow up testing of positive sera with both VA-3 and MPO-ANCA enzyme immunoassays. As many as 5% serum samples are positive only by EIA. Ref. AM J Clin Pathol 1999;111:507-513. 6 The atypical pANCA pattern h as been observed in a significant percentage of patients with ulcerative colitis, primary sclerosing cholangitis and autoimmune hepatitis. 7 Negative <5 Equivocal 5 - 9 Positive >9 8 No lupus anticoagulant was d etected. 9 Negative <20 Weak positive 20 - 39 Moderate positive 40 - 59 Strong positive >59 10 FASTING~.~.~<DG1.3.1>Z00.00</DG1.3.1><DG1.3.1>Z00.00</DG1.3.1><DG1.3.1>L65.9</DG 1.3.1><DG1.3 11 Negative <1:80 Borderline 1:80 Positive >1:80 12 A positive CRISTINA result may oc cur in healthy individuals (low titer) or be associated with a variety of diseases. See interpretation chart which is not all inclusive: Pattern Antigen Detected Suggested Disease Association --------- Homogeneous DNA(ds,ss), SLE - High titers Nucleosomes, Histones Drug-induced SLE --------- Speckled Sm, VACUUM WORKER, SCL-70, SLE,MCTD,PSS (diffuse form), SS-A/SS-B Sjogrens --------- Nucleolar SCL-70, PM-1/SCL High titers Scleroderma, PM/DM --------- Centromere Centromere PSS (limited form) w/Crest syndrome variable --------- Nuclear Dot Sp100,p80-hpixds Primary Biliary Cirrhosis --------- Nuclear GP210, Primary Biliary Cirrhosis Membrane massiel A,B,C --------- 13 URINALYSIS 14 {A1] {HB] 15 LIPID PANEL 16 CVE RISK CHOL/HDL LDL/HDL MEN: 1/2 AVERAGE 3.43 1.00 AVERAGE 4.97 3.55 2X AVERAGE 9.55 6.25 3X AVERAGE 23.99 7.99 WOMEN: 1/2 AVERAGE 3.27 1.47 AVERAGE 4.44 3.22 2X AVERAGE 7.05 5.03 3X AVERAGE 11.04 6.14 17 CDC/S HS-CRP CUT-OFF: RELATIVE RISK: <1.0 mg/L Low 1.0 - 3.0 mg/L A verage >3.0 mg/L High Optimally, the average of HS-CRP results repeated two weeks apart should be used for risk assessment. 18 COMPREHENSIVE METABOLIC PANE L 19 Male GFR Interprentation 20-49 yrs >60 mL/min Normal 50-59 yrs >56 mL/min Normal 60-69 yrs >49 mL/min Normal 70-79yrs >42 mL/min Normal 80 and above >35 mL/min Normal Female GFR Interpretation 20-39 yrs >60 mL/min Normal 40-49 yrs >58 mL/min Normal 50-59 yrs >51 mL/min Normal 60-69 yrs >45 mL/min Normal 70-79 yrs >39 mL/min Normal 80 and above >32 mL/min Normal 20 COMPLETE BLOOD COUNT Procedures Date Code Description Status 04/11/2020 70346 Admin Patient Focused Health Ris k Assessment Instrument Completed 04/11/2020 61503 Brief Emotional/Beha v Assessment W/ Scoring Doc Per Standard Inst Completed Medical Devices Description No Information Available Encounters Description No Information Available Assessments Date Code Description Provider 05/14/2020 K44.9 Diaphragmatic hernia without obs truction or gangrene Savannah Khoury PA-C 05/14/2020 R47.02 Dysphasia SORAYA Scott 05/14/2020 K43.9 Ventral hernia without obstructi on or gangrene Savannah Khoury PA-C 05/14/2020 M79.642 Pain in left hand Savannah Khoury PA-C 05/14/2020 R76.0 Raised antibody titer Savannah Ramos am, PA-C 05/14/2020 E78.1 Pure hyperglyceridemia Savannah chakraborty PA-C 05/14/2020 R03.0 Elevated blood-press ure reading, without diagnosis of hypertension Savannah Khoury PA-C 04/11/2020 Z00.00 Encounter for genera l adult medical examination without abnormal findings Fidel Aleman MD 04/11/2020 R47.02 Dysphasia Fidel Aleman MD 04/11/2020 K43.9 Ventral hernia without obstructi on or gangrene Fidel Aleman MD 04/11/2020 M79.642 Pain in left hand Fidel hoawrd MD 04/11/2020 L65.9 Nonscarring hair loss, unspecifi ed Fidel Aleman MD 04/11/2020 E66.9 Obesity, unspecified Fidel mckeon MD Plan of Treatment Future Appointment(s):* 11/19/2020 7:00 am - Fidel Aleman MD at [facility] Functional Status Description No Information Available Mental Status Description No Information Available Referrals Refer to Reason for Referral Status Appt Date [facility] Rheumatology 35 year old male with persis tently positive CRISTINA. Please evaluate and treat. Thank you. Closed [address] [facility] [address] [place] [address] [phone] Joaquim Marlow MD 35 year old male with hiatal hernia, repaired by your office, date unknown. Patient reports dysphagia now. Esophogram shows mild hiatal hernia and GERD. Patient would like referral back to see you. Thank you. Closed [address] [place] [address] [phone]
--- OUTSIDE RECORDS SUMMARY | 2020-08-28 07:11 | CCD ---
Author Author [facility] Organization [facility] Address Unknown Phone Unavailable Care Team Providers Care Medical Office Professional Instructor Name Role Phone Veronica Pichardo PROBLEMS Type Condition ICD9-CM Code [id number] Code Onset Dates Condition S tatus SNOMED Code Notes Problem Gastro-esophageal reflux disease without esophagitis K21.9 Active 017367258 Problem Tension-type headache, unspecified, not intractable G44.209 Active 023173401 Problem Paresthesias R20.2 Active 77340345 Problem Vitamin D deficiency E55.9 Active 40598118 Problem Generalized abdominal pain R10.84 Active 31042 4006 Problem Gallbladder colic K80.20 Active 775944207 Problem Myalgia M79.1 Active 12511157 Problem Periumbilical abdominal pain R10.33 Active 443 541780 ALLERGIES Allergen (clinical drug ingredient) Drug/Non Drug Allergy do cumented on EMR Reaction Allergy Type Onset Date Status Bee sting Unknown Non Drug Allergy Active ENCOUNTERS from 1983 to 2020-07-09 Encounter Location Date Provider Diagnosis [facility] Rheumatology [address] [place] [id number] Jun, Veronica Pichardo Vitamin D deficiency E55.9 IMMUNIZATIONS Vaccine Route Administration Date Status TD [...] College Language: Question Answer Notes Languages spoken: Belarusian Pentecostal: Question Answer Notes Pentecostal 33 None Sexual Hx: Question Answer Notes [...] Notes Start Da te End Date Status tylenol 650 mg 1 tab(s) orally every 8 hours as needed Not-Taking Ranitidine HCl 150 MG 1 capsule at bedtime Orally Once a day Not-Taking Lisinopril 10 MG 1 tablet Orally Once a day for 30 day(s) Active Folic Acid 1 MG 1 tablet Orally Once a day for 30 day(s) 1 Jun, Active Protonix 40 mg 1 tablet Orally Once a day Not-Taking Vitamin D (Ergocalciferol) 1.25 MG (40588 UT) 1 capsul e Orally Weekly for 30 day(s) Jun, Active Tizanidine HCl 2 MG 1 tablet as needed Orally bid for 30 day(s) May, Not-Taking PROCEDURES No Information RESULTS No Results REASON FOR VISIT Vitamin D deficiency MEDICAL (GENERAL) HISTORY Type Description Date Medical [...] Cholecystectomy 2018 Surgical History Fundoplication (stomach wrap, [place], [place]) 2018 Hospitalization History Cellulitis 01/2015 Hospitalization History Surgical related Goals Section No Information Health Concerns No Information MEDICAL EQUIPMENT No Information MENTAL STATUS No Information FUNCTIONAL STATUS No Information ASSESSMENTS Encounter Date Diagnosis Assessment Notes Treatment Notes Treatm ent Clinical Notes Jun, Vitamin D deficiency (ICD-10 - E55.9) PLAN OF TREATMENT Medication Medication Name Sig Start Date Stop Date Vitamin D (Ergocalciferol) 1.25 MG (10822 UT) 1 capsul e Orally Weekly for 30 day(s) Jun, Folic Acid 1 MG 1 tablet Orally Once a day for 30 day(s) Jun, Next Appt Details Provider Name:Veronica Pichardo, 2020-07-16 04:45:00 PM, [address] [place] [address], [id number], Insurance Providers Payer Name Payer Address Payer Phone Insured Name Patient Relati onship to Insured Coverage Start Date Coverage End Date KELLY RUSSO [address] [facility] [id number] STEPHAN SWANSON self
--- OUTSIDE RECORDS SUMMARY | 2020-08-28 07:12 | CCD | Continuity of Care Document ---
Author Author Mino HADDAD M.D. Organization Unknown Address [address] [place] [address] Phone [phone] Care Team Providers Care Progressive Care Nurse Name Role Phone Veronica Pichardo M.D. AUTM [phone] Fidel Aleman M.D. AUTM [phone] Problems Active Problems Provider Date Tension-type headache [...] lb BMI (Body Mass Index) 35.9 kg/m2 [place] Body Weight 178 lb 03/01/2015 9:23am BP Systolic 125 mmHg BP Diastolic 80 mmHg Heart Rate 78 /min Respiratory Rate 16 /min Height 72 inches 6'0" Weight 265.00 lb BMI (Body Mass Index) 35.9 kg/m2 [place] Body Weight 178 lb Results Description No Information Available Procedures Date Code Description Status 07/04/2020 24202 Nerve Conduction 13+ Studies Com pleted 07/04/2020 79911 Needle Electromyogra phy Non Extremity Done With Nerve Conduction Completed 07/04/2020 75178 Needle Electromyogra phy Non Extremity Done With Nerve Conduction Completed 07/04/2020 77532 Needle Electromyography Complete , Five Or More Muscles Studied Completed 07/04/2020 88306 Needle Electromyography Complete , Five Or More Muscles Studied Completed Medical Devices Description No Information Available Encounters Description No Information Available Assessments Date Code Description Provider 07/04/2020 G56.01 Carpal tunnel syndrome, right up per limb Ana Haddad M.D. 07/04/2020 M54.12 Radiculopathy, cervical region A дмитрий Haddad M.D. 07/04/2020 M54.2 Cervicalgia Sandi Salas 07/04/2020 R20.2 Paresthesia of skin Ana Haddad M.D. Plan of Treatment No Information Available Functional Status Description No Information Available Mental Status Description No Information Available Referrals Description No Information Available
--- OUTSIDE RECORDS SUMMARY | 2020-08-28 07:12 | CCD | Continuity of Care Document ---
Author Author Mino HADDAD M.D. Organization Unknown Address [address] [place] [address] Phone [phone] Care Team Providers Care Rubberizing Mechanic Name Role Phone Veronica Pichardo M.D. AUTM [phone] Fidel Aleman M.D. AUTM [phone] Problems Active Problems Provider Date Tension-type headache [...] lb BMI (Body Mass Index) 35.9 kg/m2 [place] Body Weight 178 lb 03/01/2015 9:23am BP Systolic 125 mmHg BP Diastolic 80 mmHg Heart Rate 78 /min Respiratory Rate 16 /min Height 72 inches 6'0" Weight 265.00 lb BMI (Body Mass Index) 35.9 kg/m2 [place] Body Weight 178 lb Results Description No Information Available Procedures Description No Information Available Medical Devices Description No Information Available Encounters Description No Information Available Assessments Description No Information Available Plan of Treatment Future Appointment(s):* 07/05/2020 9:00 am - Ana Haddad M.D. at Main office [facility] [place] Functional Status Description No Information Available Mental Status Description No Information Available Referrals Description No Information Available
--- OUTSIDE RECORDS SUMMARY | 2020-08-28 07:13 | CCD ---
Author Author [facility] Organization [facility] Address Unknown Phone Unavailable Care Team Providers Care Director Of Human Resources Name Role Phone Veronica Pichardo PROBLEMS Type Condition ICD9-CM Code [id number] Code Onset Dates Condition S tatus SNOMED Code Notes Problem Gastro-esophageal reflux disease without esophagitis K21.9 Active 491868422 Problem Periumbilical abdominal pain R10.33 Active 443 805764 Problem Paresthesias R20.2 Active 55194306 Problem Tension-type headache, unspecified, not intractable G44.209 Active 910311002 Problem Generalized abdominal pain R10.84 Active 40648 4006 Problem Gallbladder colic K80.20 Active 075855018 Problem Myalgia M79.1 Active 60510446 ALLERGIES Allergen (clinical drug ingredient) Drug/Non Drug Allergy do cumented on EMR Reaction Allergy Type Onset Date Status Bee sting Unknown Non Drug Allergy Active ENCOUNTERS from 1983 to 2020-06-27 Encounter Location Date Provider Diagnosis [facility] Rheumatology [address] [place], [place] [id number] 11 Jun, 2020 Veronica Pichardo Positive RADHA (antinuclear antibody) R76. 8 ; Myalgia M79.10 ; Paresthesias R20.2 ; History of cardiomegaly Z86.79 ; Alopecia L65.9 and Swelling of wrist, unspecified laterality M25.439 IMMUNIZATIONS Vaccine Route Administration Date Status TD [...] College Language: Question Answer Notes Languages spoken: Azeri Mu-Ism: Question Answer Notes Mu-Ism 33 None Sexual Hx: Question Answer Notes [...] FOR REFERRAL No Information VITAL SIGNS Weight 270.8 lbs Jun, Weight-kg 122.8 kg Jun, Height 72 in Jun, BMI 36.72 kg/m2 Jun, Heart Rate 91 /min Jun, Respiratory Rate 18 /min Jun, Temperature 97.8 degrees Fahrenheit Jun, Oximetry 96 Jun, Blood pressure systolic 132 mm Hg Jun, Blood pressure diastolic 70 mm Hg Jun, MEDICATIONS Medication SIG (Take, Route, Frequency, Duration) Notes Start Da te End Date Status tylenol 650 mg 1 tab(s) orally every 8 hours as needed Not-Taking Tizanidine HCl 2 MG 1 tablet as needed Orally bid for 30 day(s) May, Not-Taking Ranitidine HCl 150 MG 1 capsule at bedtime Orally Once a day Not-Taking Folic Acid 1 MG 1 tablet Orally Once a day for 30 day(s) 1 Jun, Active Protonix 40 mg 1 tablet Orally Once a day Not-Taking Lisinopril 10 MG 1 tablet Orally Once a day for 30 day(s) Active PROCEDURES No Information RESULTS No Results REASON FOR VISIT Patient is present today for a new patient appointment, c/o bilateral arms, legs , hands and knees pain nerve pain MEDICAL (GENERAL) HISTORY Type Description Date [...] Cholecystectomy 2017 Surgical History Fundoplication (stomach wrap, [place], [place]) 2018 Hospitalization History Cellulitis 01/2015 Hospitalization History Surgical related Goals Section No Information Health Concerns No Information MEDICAL EQUIPMENT No Information MENTAL STATUS No Information FUNCTIONAL STATUS No Information ASSESSMENTS Encounter Date Diagnosis Assessment Notes Treatment Notes Treatm ent Clinical Notes Jun, Positive RADHA (antinuclear antibody) (ICD-10 - R7 6.8) Will perform further investigation of possible underlying connective tissue disease, given the findings of positive RADHA (1:80 (homogeneous, speckled), 1:160 (homogeneous)), alopecia, arthralgias, and photosensitivity. Will complete the investigation for a connective tissue disease (history of 05/14/2020 Rheumatoid factor & CCP negative, SSA Ab, SSB Ab, DATA ENTRY MACHINE OPERATOR Ab, Chamberlain Ab, dsDNA ab - all negative). Will obtain complement levels (C3, C4, CH50), centromere antibodies, anti-histone, anti-topoisomerase I, and antiphospholipid antibodies for further evaluation. Jun, Myalgia (ICD-10 - M79.10) Given the widespread pain and somatic symptoms, will perform investigation. Will check vitamin D and vitamin B12 level, given the muscle aches. Will check creatinine kinase to evaluate for elevated muscle enzymes, given the muscle pain. Nutritional deficiencies can contribute to increased joint pain and muscle aches; will check iron, magnesium, and phosphorous. Jun, Paresthesias (ICD-10 - R20.2) Given the paresthesias of the upper extremities and abnormal neurological physical examination of the left lower extremity, will perform an EMG for further evaluation. Jun, History of cardiomegaly (ICD-10 - Z86.79) History of cardiomegaly on chest x-ray in 01/2018; it is unclear if this finding is related to the current symptomatology. Will repeat the chest x-ray; if the findings are consistent with cardiomegaly, then will perform further investigation. Jun, Alopecia (ICD-10 - L65.9) Given the significant alopecia, recommended the initiation of folic acid 1 mg daily for improvement in hair loss. Will monitor the symptomatology closely. Jun, Swelling of wrist, unspecified laterality (ICD-1 0 - M25.439) Given the bilateral wrist swelling (no significant tenderness present), will perform imaging to evaluate for underlying structural abnormalities contributing to the clinical presentation. PLAN OF TREATMENT Medication Medication Name Sig Start Date Stop Date Folic Acid 1 MG 1 tablet Orally Once a day for 30 day(s) Jun, Treatment Notes Assessment Notes Clinical Notes Positive RADHA (antinuclear antibody) Will perform further investigation of possible underlying connective tissue disease, given the findings of positive RADHA (1:80 (homogeneous, speckled), 1:160 (homogeneous)), alopecia, arthralgias, and photosensitivity. Will complete the investigation for a connective tissue disease (history of 05/14/2020 Rheumatoid factor & CCP negative, SSA Ab, SSB Ab, DATA ENTRY MACHINE OPERATOR Ab, Chamberlain Ab, dsDNA ab - all negative). Will obtain complement levels (C3, C4, CH50), centromere antibodies, anti-histone, anti-topoisomerase I, and antiphospholipid antibodies for further evaluation. Myalgia Given the widespread pain and somatic symptoms, will perform investigation. Will check vitamin D and vitamin B12 level, given the muscle aches. Will check creatinine kinase to evaluate for elevated muscle enzymes, given the muscle pain. Nutritional deficiencies can contribute to increased joint pain and muscle aches; will check iron, magnesium, and phosphorous. Paresthesias Given the paresthesi as of the upper extremities and abnormal neurological physical examination of the left lower extremity, will perform an EMG for further evaluation. History of cardiomegaly History of cardi omegaly on chest x-ray in 01/2018; it is unclear if this finding is related to the current symptomatology. Will repeat the chest x-ray; if the findings are consistent with cardiomegaly, then will perform further investigation. Alopecia Given the significan t alopecia, recommended the initiation of folic acid 1 mg daily for improvement in hair loss. Will monitor the symptomatology closely. Swelling of wrist, unspecified laterality Given the bilateral wrist swelling (no significant tenderness present), will perform imaging to evaluate for underlying structural abnormalities contributing to the clinical presentation. Treatment Notes Test Name Order Date VITAMIN B12 LEVEL 2020-06-27 ANTI SCLERODERMA ANTIBODIES 2020-06-27 PHOSPHOROUS LEVEL 2020-06-27 COMPLEMENT C4 2020-06-27 COMPLEMENT TOTAL (CH50) 2020-06-27 IRON (FE) 2020-06-27 LUPUS TYPE ANTICOAGULANT SCREE 2020-06-27 ANTI-HISTONE ANTIBODIES 2020-06-27 COMPLEMENT C3 2020-06-27 ANTI CENTROMERE ANTIBODY 2020-06-27 VITAMIN D 25-HYDROXY 2020-06-27 MAGNESIUM LEVEL 2020-06-27 ANTI-CARDIOLIPIN ANTIBODIES 2020-06-27 BETA-2 GLYCOPROTEIN 1 LIBRADO DANYELLE 2020-06-27 CPK CREATINE PHOSPHOKINASE 2020-06-27 Chest X-ray PA and lateral 2020-06-27 SMC Wrist, complete 2020-06-27 Next Appt Details 3 Weeks Reason:Positive RADHA Provider Name:Veronica Pichardo, 2020-07-16 04:45:00 PM, [address] [place] [address], [phone], Follow Up:3 WeeksPositive RADHA Insurance Providers Payer Name Payer Address Payer Phone Insured Name Patient Relati onship to Insured Coverage Start Date Coverage End Date KELLY RUSSO [address] [place] [address] [phone] STEPHAN CHANCE self
--- OUTSIDE RECORDS SUMMARY | 2020-08-28 07:14 | CCD ---
Author Author [facility] Organization [facility] Address Unknown Phone Unavailable Care Team Providers Care Home Health Nurse Name Role Phone Basil, M Anastasiya MINERAL ENGINEER Unavailable Unavailable Grandy, M Anastasiya MINERAL ENGINEER Unavailable Unavailable Grandy, M Anastasiya MINERAL ENGINEER Unavailable Unavailable Basil, M Anastasiya MINERAL ENGINEER Unavailable Unavailable Basil, M Anastasiya MINERAL ENGINEER Unavailable Unavailable Basil, M Anastasiya MINERAL ENGINEER Unavailable Unavailable Basil, M Anastasiya MINERAL ENGINEER Unavailable Unavailable Basil, M Anastasiya MINERAL ENGINEER Unavailable Unavailable Basil, M Anastasiya MINERAL ENGINEER Unavailable Unavailable Basil, M Anastasiya MINERAL ENGINEER Unavailable Unavailable Grandy, M Anastasiya MINERAL ENGINEER Unavailable Unavailable Basil, M Anastasiya MINERAL ENGINEER Unavailable Unavailable Grandy, M Anastasiya MINERAL ENGINEER Unavailable Unavailable Grandy, M Anastasiya MINERAL ENGINEER Unavailable Unavailable Basil, M Anastasiya MINERAL ENGINEER Unavailable Unavailable Basil, M Anastasiya MINERAL ENGINEER Unavailable Unavailable Grandy, M Anastasiya MINERAL ENGINEER Unavailable Unavailable Grandy, M Anastasiya MINERAL ENGINEER Unavailable Unavailable Basil, M Anastasiya MINERAL ENGINEER Unavailable Unavailable Basil, M Anastasiya MINERAL ENGINEER Unavailable Unavailable Basil, M Anastasiya MINERAL ENGINEER Unavailable Unavailable Basil, M Anastasiya MINERAL ENGINEER Unavailable Unavailable Grandy, M Anastasiya MINERAL ENGINEER Unavailable Unavailable Grandy, M Anastasiya MINERAL ENGINEER Unavailable Unavailable Grandy, M Anastasiya MINERAL ENGINEER Unavailable Unavailable Grandy, M Anastasiya MINERAL ENGINEER Unavailable Unavailable Basil, M Anastasiya MINERAL ENGINEER Unavailable Unavailable Grandy, M Anastasiya MINERAL ENGINEER Unavailable Unavailable Grandy, M Anastasiya MINERAL ENGINEER Unavailable Unavailable Grandy, M Anastasiya MINERAL ENGINEER Unavailable Unavailable Basil, M Anastasiya MINERAL ENGINEER Unavailable Unavailable Basil, M Anastasiya MINERAL ENGINEER Unavailable Unavailable Basil, M Anastasiya MINERAL ENGINEER Unavailable Unavailable Grandy, M Anastasiya MINERAL ENGINEER Unavailable Unavailable Odell CASAS MD Unavailable Unavailable Odell CASAS MD Unavailable Unavailable Odell CASAS MD Unavailable Unavailable Odell CASAS MD Unavailable Unavailable Odell CASAS MD Unavailable Unavailable Odell CASAS MD Unavailable Unavailable Odell CASAS MD Unavailable Unavailable Odell CASAS MD Unavailable Unavailable Odell CASAS MD Unavailable Unavailable Odell CASAS MD Unavailable Unavailable Odell CASAS MD Unavailable Unavailable Odell CASAS MD Unavailable Unavailable Odell CASAS MD Unavailable Unavailable Odell CASAS MD Unavailable Unavailable Odell CASAS MD Unavailable Unavailable Odell CASAS MD Unavailable Unavailable Odell CASAS MD Unavailable Unavailable Odell CASAS MD Unavailable Unavailable Odell CASAS MD Unavailable Unavailable Odell CASAS MD Unavailable Unavailable Odell CASAS MD Unavailable Unavailable Odell CASAS MD Unavailable Unavailable Odell CASAS MD Unavailable Unavailable Odell CASAS MD Unavailable Unavailable Odell CASAS MD Unavailable Unavailable Odell CASAS MD Unavailable Unavailable Odell CASAS MD Unavailable Unavailable Odell CASAS MD Unavailable Unavailable Odell CASAS MD Unavailable Unavailable Odell CASAS MD Unavailable Unavailable Odell CASAS MD Unavailable Unavailable Odell CASAS MD Unavailable Unavailable Odell CASAS MD Unavailable Unavailable Odell CASAS MD Unavailable Unavailable Odell CASAS MD Unavailable Unavailable Odell CASAS MD Unavailable Unavailable Odell CASAS MD Unavailable Unavailable Odell CASAS MD Unavailable Unavailable Odell CASAS MD Unavailable Unavailable Odell CASAS MD Unavailable Unavailable Odell CASAS MD Unavailable Unavailable Odell CASAS MD Unavailable Unavailable Odell CASAS MD Unavailable Unavailable NINAOdell Jerez MD Unavailable Unavailable NINAOdell Jerez MD Unavailable Unavailable NINAOdell Jerez MD Unavailable Unavailable NINAOdell Jerez MD Unavailable Unavailable Odell CASAS MD Unavailable Unavailable NINAOdell Jerez MD Unavailable Unavailable NINAOdell Jerez MD Unavailable Unavailable NINAOdell Jerez MD Unavailable Unavailable NINAOdell Jerez MD Unavailable Unavailable NINAOdell Jerez MD Unavailable Unavailable NINAOdell Jerez MD Unavailable Unavailable NINAOdell Jerez MD Unavailable Unavailable NINA, E MASSIEL RAMSAY Unavailable Unavailable NINAOdell Jerez MD Unavailable Unavailable NINA, E MASSIEL RAMSAY Unavailable Unavailable NINA, E MASSIEL RAMSAY Unavailable Unavailable NINA, E MASSIEL RAMSAY Unavailable Unavailable NINA, E MASSIEL RAMSAY Unavailable Unavailable NINAOdell Jerez MD Unavailable Unavailable NINA, E MASSIEL RAMSAY Unavailable Unavailable NINAOdell Jerez MD Unavailable Unavailable NINA, E MASSIEL RAMSAY Unavailable Unavailable NINAOdell Jerez MD Unavailable Unavailable NINAOdell Jerez MD Unavailable Unavailable NINAOdell Jerez MD Unavailable Unavailable NINAOdell Jerez MD Unavailable Unavailable NINAOdell Jerez MD Unavailable Unavailable NINAOdell Jerez MD Unavailable Unavailable NINA, E MASSIEL RAMSAY Unavailable Unavailable Odell CASAS MD Unavailable Unavailable NINAOdell Jerez MD Unavailable Unavailable Odell CASAS MD Unavailable Unavailable NINAOdell Jerez MD Unavailable Unavailable NINAOdell Jerez MD Unavailable Unavailable Odell CASAS MD Unavailable Unavailable NINAOdell Jerez MD Unavailable Unavailable Odell CASAS MD Unavailable Unavailable Odell CASAS MD Unavailable Unavailable Odell CASAS MD Unavailable Unavailable Odell CASAS MD Unavailable Unavailable Odell CASAS MD Unavailable Unavailable Odell CASAS MD Unavailable Unavailable Odell CASAS MD Unavailable Unavailable Odell CASAS MD Unavailable Unavailable Odell CASAS MD Unavailable Unavailable Odell CASAS MD Unavailable Unavailable Odell CASAS MD Unavailable Unavailable Odell CASAS MD Unavailable Unavailable Odell CASAS MD Unavailable Unavailable Odell CASAS MD Unavailable Unavailable Odell CASAS MD Unavailable Unavailable Odell CASAS MD Unavailable Unavailable Odell CASAS MD Unavailable Unavailable Odell CASAS MD Unavailable Unavailable NINA E MASSIEL MD Unavailable Unavailable Odell CASAS MD Unavailable Unavailable NINAOdell NASSAR MD Unavailable Unavailable NINAOdell NASSAR MD Unavailable Unavailable Odell CASAS MD Unavailable Unavailable Odell CASAS MD Unavailable Unavailable Odell CASAS MD Unavailable Unavailable Odell CASAS MD Unavailable Unavailable Odell CASAS MD Unavailable Unavailable NINAOdell NASSAR MD Unavailable Unavailable Odell CASAS MD Unavailable Unavailable Odell CASAS MD Unavailable Unavailable Odell CASAS MD Unavailable Unavailable Odell CASAS MD Unavailable Unavailable Odell CASAS MD Unavailable Unavailable Odell CASAS MD Unavailable Unavailable NINAOdell NASSAR MD Unavailable Unavailable Odell CASAS MD Unavailable Unavailable Odell CASAS MD Unavailable Unavailable Odell CASAS MD Unavailable Unavailable Odell CASAS MD Unavailable Unavailable Odell CASAS MD Unavailable Unavailable Odell CASAS MD Unavailable Unavailable Odell CASAS MD Unavailable Unavailable Odell CSAAS MD Unavailable Unavailable Odell CASAS MD Unavailable Unavailable Odell CASAS MD Unavailable Unavailable Odell CASAS MD Unavailable Unavailable Odell CASAS MD Unavailable Unavailable Odell CASAS MD Unavailable Unavailable Odell CASAS MD Unavailable Unavailable Odell CASAS MD Unavailable Unavailable Odell CASAS MD Unavailable Unavailable Odell CASAS MD Unavailable Unavailable Odell CASAS MD Unavailable Unavailable Odell CASAS MD Unavailable Unavailable Odell CASAS MD Unavailable Unavailable Odell CASAS MD Unavailable Unavailable Odell CASAS MD Unavailable Unavailable Odell CASAS MD Unavailable Unavailable Odell CASAS MD Unavailable Unavailable Odell CASAS MD Unavailable Unavailable Odell CASAS MD Unavailable Unavailable Odell CASAS MD Unavailable Unavailable NINAOdell NASSAR MD Unavailable Unavailable WORMUTH, Terence HUDSON MD Unavailable Unavailable WORMUTH, Terence HUDSON MD Unavailable Unavailable WORMUTH, Terence HUDSON MD Unavailable Unavailable WORMUTH, Terence HUDSON MD Unavailable Unavailable WORMUTH, Terence HUDSON MD Unavailable Unavailable WORMUTH, Terence HUDSON MD Unavailable Unavailable WORMUTH, Terence HUDSON MD Unavailable Unavailable WORMUTH, Terence HUDSON MD Unavailable Unavailable WORMUTH, Terence HUDSON MD Unavailable Unavailable WORMUTH, Terence HUDSON MD Unavailable Unavailable WORMUTH, Terence HUDSON MD Unavailable Unavailable WORMUTH, Terence HUDSON MD Unavailable Unavailable WORMUTH, Terence HUDSON MD Unavailable Unavailable WORMUTH, Terence HUDSON MD Unavailable Unavailable WORMUTH, Terence HUDSON MD Unavailable Unavailable WORMUTH, Terence HUDSON MD Unavailable Unavailable WORMUTH, Terence HUDSON MD Unavailable Unavailable WORMUTH, Terence HUDSON MD Unavailable Unavailable WORMUTH, Terence HUDSON MD Unavailable Unavailable WORMUTH, Terence HUDSON MD Unavailable Unavailable WORMUTH, Terence HUDSON MD Unavailable Unavailable WORMUTH, Terence HUDSON MD Unavailable Unavailable WORMUTH, Terence HUDSON MD Unavailable Unavailable WORMUTH, Terence HUDSON MD Unavailable Unavailable WORMUTH, Terence HUDSON MD Unavailable Unavailable WORMUTH, Terence HUDSNO MD Unavailable Unavailable WORMUTH, Terence HUDSON MD Unavailable Unavailable WORMUTH, Terence HUDSON MD Unavailable Unavailable WORMUTH, Terence HUDSON MD Unavailable Unavailable WORMUTH, Terence HUDSON MD Unavailable Unavailable WORMUTH, Terence HUDSON MD Unavailable Unavailable WORMUTH, Terence HUDSON MD Unavailable Unavailable WORMUTH, Terence HUDSON MD Unavailable Unavailable WORMUTH, Terence HUDSON MD Unavailable Unavailable WORMUTH, Terence HUDSON MD Unavailable Unavailable WORMUTH, Terence HUDSON MD Unavailable Unavailable WORMUTH, Terence HUDSON MD Unavailable Unavailable WORMUTH, Terence HUDSON MD Unavailable Unavailable WORMUTH, Terence HUDSON MD Unavailable Unavailable WORMUTH, Terence HUDSON MD Unavailable Unavailable WORMUTH, Terence HUDSON MD Unavailable Unavailable WORMUTH, Terence HUDSON MD Unavailable Unavailable WORMUTH, Terence HUDSON MD Unavailable Unavailable WORMUTH, Terence HUDSON MD Unavailable Unavailable WORMUTH, Terence HUDSON MD Unavailable Unavailable WORMUTH, Terence HUDSON MD Unavailable Unavailable WORMUTH, Terence HUDSON MD Unavailable Unavailable WORMUTH, Terence HUDSON MD Unavailable Unavailable WORMUTH, Terence HUDSON MD Unavailable Unavailable WORMUTH, Terence HUDSON MD Unavailable Unavailable WORMUTH, Terence HUDSON MD Unavailable Unavailable WORMUTH, Terence HUDSON MD Unavailable Unavailable WORMUTH, Terence HUDSON MD Unavailable Unavailable WORMUTH, Terence HUDSON MD Unavailable Unavailable WORMUTH, Terence HUDSON MD Unavailable Unavailable WORMUTH, Terence HUDSON MD Unavailable Unavailable WORMUTH, Terence HUDSON MD Unavailable Unavailable WORMUTH, Terence HUDSON MD Unavailable Unavailable WORMUTH, Terence HUDSON MD Unavailable Unavailable WORMUTH, Terence HUDSON MD Unavailable Unavailable WORMUTH, Terence HUDSON MD Unavailable Unavailable WORMUTH, Terence HUDSON MD Unavailable Unavailable WORMUTH, Terence HUDSON MD Unavailable Unavailable WORMUTH, Terence HUDSON MD Unavailable Unavailable WORMUTH, Terence HUDSON MD Unavailable Unavailable WORMUTH, Terence HUDSON MD Unavailable Unavailable WORMUTH, Terence HUDSON MD Unavailable Unavailable WORMUTH, Terence HUDSON MD Unavailable Unavailable WORMUTH, Terence HUDSON MD Unavailable Unavailable WORMUTH, Terence HUDSON MD Unavailable Unavailable WORMUTH, Terence HUDSON MD Unavailable Unavailable WORMUTH, Terence HUDSON MD Unavailable Unavailable LUIS ENRIQUE, LISSETT LABOY MD Unavailable Unavailable LISSETT DUDLEY MD Unavailable Unavailable DUDLEY, LISSETT LABOY MD Unavailable Unavailable DUDLEY, LISSETT ALBOY MD Unavailable Unavailable DUDLEY, LISSETT LABOY MD Unavailable Unavailable DUDLEY, LISSETT LABOY MD Unavailable Unavailable DUDLEY, LISSETT LABOY MD Unavailable Unavailable DUDLEY, LISSETT LABOY MD Unavailable Unavailable DUDLEY, LISSETT LABOY MD Unavailable Unavailable DUDLEY, LISSETT LABOY MD Unavailable Unavailable DUDLEY, LISSETT LABOY MD Unavailable Unavailable DUDLEY, LISSETT LABOY MD Unavailable Unavailable DUDLEY, LISSETT LABOY MD Unavailable Unavailable DUDLEY, LISSETT LABOY MD Unavailable Unavailable DUDLEY, LISSETT LABOY MD Unavailable Unavailable DUDLEY, LISSETT LABOY MD Unavailable Unavailable DUDLEY, LISSETT LABOY MD Unavailable Unavailable DUDLEY, LISSETT LABOY MD Unavailable Unavailable DUDLEY, LISSETT LABOY MD Unavailable Unavailable DUDLEY, LISSETT LABOY MD Unavailable Unavailable DUDLEY, LISSETT LABOY MD Unavailable Unavailable DUDLEY, LISSETT LABOY MD Unavailable Unavailable DUDLEY, LISSETT LABOY MD Unavailable Unavailable DUDLEY, LISSETT LABOY MD Unavailable Unavailable DUDLEY, LISSETT LABOY MD Unavailable Unavailable DUDLEY, LISSETT LABOY MD Unavailable Unavailable DUDLEY, LISSETT LABOY MD Unavailable Unavailable DUDLEY, LISSETT LABOY MD Unavailable Unavailable DUDLEY, LISSETT LABOY MD Unavailable Unavailable DUDLEY, LISSETT LABOY MD Unavailable Unavailable DUDLEY, LISSETT LABOY MD Unavailable Unavailable DUDLEY, LISSETT LABOY MD Unavailable Unavailable DUDLEY, LISSETT LABOY MD Unavailable Unavailable DUDLEY, LISSETT LABOY MD Unavailable Unavailable DUDLEY, LISSETT LABOY MD Unavailable Unavailable DUDLEY, LISSETT LABOY MD Unavailable Unavailable DUDLEY, LISSETT LABOY MD Unavailable Unavailable DUDLEY, LISSETT LABOY MD Unavailable Unavailable DUDLEY, LISSETT LABOY MD Unavailable Unavailable DUDLEYLISSETT MD Unavailable Unavailable GILBERTO CANAS MD Unavailable Unavailable GILBERTO CANAS MD Unavailable Unavailable GILBERTO CANAS MD Unavailable Unavailable GILBERTO CANAS MD Unavailable Unavailable GILBERTO CANAS MD Unavailable Unavailable GILBERTO CANAS MD Unavailable Unavailable GILBERTO CANAS MD Unavailable Unavailable GILBERTO CANAS MD Unavailable Unavailable GILBERTO CANAS MD Unavailable Unavailable GILBERTO CANAS MD Unavailable Unavailable GILBERTO CANAS MD Unavailable Unavailable GILBERTO CANAS MD Unavailable Unavailable GILBERTO CANAS MD Unavailable Unavailable GILBERTO CANAS MD Unavailable Unavailable GILBERTO CANAS MD Unavailable Unavailable GILBERTO CANAS MD Unavailable Unavailable GILBERTO CANAS MD Unavailable Unavailable GILBERTO CANAS MD Unavailable Unavailable GILBERTO CANAS MD Unavailable Unavailable CANAS, GILBERTO MD Unavailable Unavailable CANAS, GILBERTO MD Unavailable Unavailable CANAS, GILBERTO MD Unavailable Unavailable CANAS, GILBERTO MD Unavailable Unavailable CANAS, GILBERTO MD Unavailable Unavailable CANAS, GILBERTO MD Unavailable Unavailable CANAS, GILBERTO MD Unavailable Unavailable CANAS, GILBERTO MD Unavailable Unavailable CANAS, GILBERTO MD Unavailable Unavailable CANAS, GILBERTO MD Unavailable Unavailable CANAS, GILBERTO MD Unavailable Unavailable CANAS, GILBERTO MD Unavailable Unavailable CANAS, GILBERTO MD Unavailable Unavailable CANAS, GILBERTO MD Unavailable Unavailable CANAS, GILBERTO MD Unavailable Unavailable CANAS, GILBERTO MD Unavailable Unavailable CANAS, GILBERTO MD Unavailable Unavailable CANAS, GILBERTO MD Unavailable Unavailable CANAS, GLIBERTO MD Unavailable Unavailable CANAS, GILBERTO MD Unavailable Unavailable CANAS, GILBERTO MD Unavailable Unavailable CANAS, GILBERTO MD Unavailable Unavailable CANAS, GILBERTO MD Unavailable Unavailable CANAS, GILBERTO MD Unavailable Unavailable CANAS, GILBERTO MD Unavailable Unavailable CANAS, GILBERTO MD Unavailable Unavailable CANAS, GILBERTO MD Unavailable Unavailable CANAS, GILBERTO MD Unavailable Unavailable CANAS, GILBERTO MD Unavailable Unavailable CANAS, GILBERTO MD Unavailable Unavailable CANAS, GILBERTO MD Unavailable Unavailable CANAS, GILBERTO MD Unavailable Unavailable CNAAS, GILBERTO MD Unavailable Unavailable CANAS, GILBERTO MD Unavailable Unavailable CANAS, GILBERTO MD Unavailable Unavailable CANAS, GILBERTO MD Unavailable Unavailable CANAS, GILBERTO MD Unavailable Unavailable CANAS, GILBERTO MD Unavailable Unavailable CANAS, GILBERTO MD Unavailable Unavailable CANAS, GILBERTO MD Unavailable Unavailable CANAS, GILBERTO MD Unavailable Unavailable CANAS, GILBERTO MD Unavailable Unavailable CANAS, GILBERTO MD Unavailable Unavailable CANAS, GILBERTO MD Unavailable Unavailable CANAS, GILBERTO MD Unavailable Unavailable CANAS, GILBERTO MD Unavailable Unavailable CANAS, GILBERTO MD Unavailable Unavailable CANAS, GILBERTO MD Unavailable Unavailable CANAS, GILBERTO MD Unavailable Unavailable CANAS, GILBERTO MD Unavailable Unavailable Khoury, M Savannah PA-C Unavailable Unavailable Khoury, M Savannah PA-C Unavailable Unavailable Khoury, M Savannah PA-C Unavailable Unavailable Khoury, M Savannah PA-C Unavailable Unavailable Khoury, M Savannah PA-C Unavailable Unavailable Khoury, M Savannah PA-C Unavailable Unavailable Khoury, M Savannah PA-C Unavailable Unavailable Khoury, M Savannah PA-C Unavailable Unavailable Khoury, M Savannah PA-C Unavailable Unavailable Khoury, M Savannah PA-C Unavailable Unavailable Khoury, M Savannah PA-C Unavailable Unavailable Khoury, M Savannah PA-C Unavailable Unavailable Khoury, M Savannah PA-C Unavailable Unavailable Khoury, M Savannah PA-C Unavailable Unavailable Khoury, M Savannah PA-C Unavailable Unavailable Khoury, M Savannah PA-C Unavailable Unavailable Khoury, M Savannah PA-C Unavailable Unavailable Khoury, M Savannah PA-C Unavailable Unavailable Khoury, M Savannah PA-C Unavailable Unavailable Khoury, M Savannah PA-C Unavailable Unavailable Khoury, M Savannah PA-C Unavailable Unavailable Khoury, M Savannah PA-C Unavailable Unavailable Khoury, M Savannah PA-C Unavailable Unavailable Khoury, M Savannah PA-C Unavailable Unavailable Khoury, M Savannah PA-C Unavailable Unavailable Khoury, M Savannah PA-C Unavailable Unavailable Khoury, M Savannah PA-C Unavailable Unavailable Khoury, M Savannah PA-C Unavailable Unavailable Khoury, M Savannah PA-C Unavailable Unavailable Khoury, M Savannah PA-C Unavailable Unavailable Khoury, M Savannah PA-C Unavailable Unavailable Khoury, M Savannah PA-C Unavailable Unavailable Khoury, M Savannah PA-C Unavailable Unavailable VALENTIN MADSEN MD Unavailable Unavailab VALENTIN Brown MD Unavailable Unavailab VALENTIN Brown MD Unavailable Unavailab VALENTIN Brown MD Unavailable Unavailab VALENTIN Brown MD Unavailable Unavailab VALENTIN Brown MD Unavailable Unavailab VALENTIN Brown MD Unavailable Unavailab VALENTIN Brown MD Unavailable Unavailab VALENTIN Brown MD Unavailable Unavailab VALENTIN Brown MD Unavailable Unavailab VALENTIN Brown MD Unavailable Unavailab VALENTIN Brown MD Unavailable Unavailab VALENTIN Brown MD Unavailable Unavailab VALENTIN Brown MD Unavailable Unavailab VALENTIN Brown MD Unavailable Unavailab VALENTIN Brown MD Unavailable Unavailab VALENTIN Brown MD Unavailable Unavailab VALENTIN Brown MD Unavailable Unavailab VALENTIN Brown MD Unavailable Unavailab VALENTIN Brown MD Unavailable Unavailab VALENTIN Brown MD Unavailable Unavailab VALENTIN Brown MD Unavailable Unavailab VALENTIN Brown MD Unavailable Unavailab VALENTIN Brown MD Unavailable Unavailab VALENTIN Brown MD Unavailable Unavailab VALENTIN Brown MD Unavailable Unavailab VALENTIN Brown MD Unavailable Unavailab VALENTIN Brown MD Unavailable Unavailab VALENTIN Brown MD Unavailable Unavailab VALENTIN Brown MD Unavailable Unavailab VALENTIN Brown MD Unavailable Unavailab VALENTIN Brown MD Unavailable Unavailab VALENTIN Brown MD Unavailable Unavailab VALENTIN Brown MD Unavailable Unavailab VALENTIN Brown MD Unavailable Unavailab VALENTIN Brown MD Unavailable Unavailab VALENTIN Brown MD Unavailable Unavailab VALENTIN Brown MD Unavailable Unavailab VALENTIN Brown MD Unavailable Unavailab VALENTIN Brown MD Unavailable Unavailab VALENTIN Brown MD Unavailable Unavailab VALENTIN Brown MD Unavailable Unavailab YASMINE BrownASFILIPPORAMKATELYNN RAMSAY Unavailable Unavailab VALENTIN Brown MD Unavailable Unavailab VALENTIN Brown MD Unavailable Unavailab VALENTIN Brown MD Unavailable Unavailab VALENTIN Brown MD Unavailable Unavailab VALENTIN Brown MD Unavailable Unavailab VALENTIN Brown MD Unavailable Unavailab le CALE, BALASUBRAMANIAM MD Unavailable Unavailab le CALE, BALASUBRAMANIAM MD Unavailable Unavailab le CALE, BALASUBRAMANIAM MD Unavailable Unavailab le CALE, BALASUBRAMANIAM MD Unavailable Unavailab le CALE, BALASUBRAMANIAM MD Unavailable Unavailab le CALE, BALASUBRAMANIAM MD Unavailable Unavailab le CALE, BALASUBRAMANIAM MD Unavailable Unavailab le CALE, BALASUBRAMANIAM MD Unavailable Unavailab le CALE, BALASUBRAMANIAM MD Unavailable Unavailab le CALE, BALASUBRAMANIAM MD Unavailable Unavailab le CALE, BALASUBRAMANIAM MD Unavailable Unavailab le CALE, BALASUBRAMANIAM MD Unavailable Unavailab le CALE, BALASUBRAMANIAM MD Unavailable Unavailab le CALE, BALASUBRAMANIAM MD Unavailable Unavailab le CALE, BALASUBRAMANIAM MD Unavailable Unavailab le CALE, BALASUBRAMANIAM MD Unavailable Unavailab le CALE, BALASUBRAMANIAM MD Unavailable Unavailab le CALE, BALASUBRAMANIAM MD Unavailable Unavailab le CALE, BALASUBRAMANIAM MD Unavailable Unavailab le CALE, BALASUBRAMANIAM MD Unavailable Unavailab le CALE, BALASUBRAMANIAM MD Unavailable Unavailab le CALE, BALASUBRAMANIAM MD Unavailable Unavailab le CHRISTIANE, 0000{ Unavailable Unavailable Re-disclosure Warning The records that you are about to access may contain information from federally-assisted alcohol or drug abuse programs. If such information is present, then the following federally mandated warning applies: This information has been disclosed to you from records protected by federal confidentiality rules (42 CFR part 2). The federal rules prohibit you from making any further disclosure of this information unless further disclosure is expressly permitted by the written consent of the person to whom it pertains or as otherwise permitted by 42 CFR part 2. A general authorization for the release of medical or other information is NOT sufficient for this purpose. The Federal rules restrict any use of the information to criminally investigate or prosecute any alcohol or drug abuse patient.The records that you are about to access may contain highly sensitive health information, the redisclosure of which is protected by Article 27-F of the [facility] Public Health law. If you continue you may have access to information: Regarding HIV / AIDS; Provided by facilities licensed or operated by the [facility] Office of Mental Health; or Provided by the [facility] Office for People With Developmental Disabilities. If such information is present, then the following [facility] mandated warning applies: This information has been disclosed to you from confidential records which are protected by state law. State law prohibits you from making any further disclosure of this information without the specific written consent of the person to whom it pertains, or as otherwise permitted by law. Any unauthorized further disclosure in violation of state law may result in a fine or custodial sentence or both. A general authorization for the release of medical or other information is NOT sufficient authorization for further disc losure. Allergies and Adverse Reactions Type Description Substance Reaction Status Data Source(s ) Propensity to adverse reactions BEE VENOM Honey bee venom Active [facility] Family History Family Member Name Family Member Gender Family Member Status Date o f Status Description Data Source(s) Unknown Unknown Problem [facility] ([facility], ) brother Encounters Encounter Providers Location Date Indications Data Source(s ) Unknown [address] [facility] [address] [id number] 08/18/2020 12:00:00 AM EST [id number] ([facility]) Outpatient Attender: VALENTIN DOHERTY MDConsultant: VALENTIN MADSEN MD [id number] 08/07/2020 12:00:00 AM EST - 08/07/2020 10:43:10 AM EST [facility] Outpatient [address] [address] 07/16/2020 12:00:00 AM EST eCW1 ([facility]) Unknown [address] [address] 07/05/2020 12:00:00 AM EST eCW1 ([facility]) Outpatient [address] [address] 06/22/2020 12:00:00 AM EST eCW1 ([facility]) Outpatient Attender: Savannah Khoury PA-C 03/2020 07:18:00 AM EST - 05/21/2020 07:18:00 AM [facility] Outpatient Attender: Savannah Khoury PA-C 08/2019 08:48:00 AM EST - 05/14/2020 08:48:00 AM [facility] Outpatient Attender: GILBERTO CANAS MDConsultant: BENOIT Elder MD 04/20/2020 09:39:00 AM EDT - 04/20/2020 10:39:00 AM EDT [facility] Outpatient Attender: GILBERTO CANAS MD 2019 03:09:00 PM EDT - 04/11/2020 03:09:00 PM EDT [facility] Outpatient Attender: GILBERTO CANAS MD Family Practice 04/11/2020 0 3:00:00 PM EDT MEDENT ([facility]) Outpatient Attender: MASSIEL CASAS MD [facility] [place] 03/09/2020 02:30:00 PM EDT MEDENT ([facility]) Outpatient Attender: MASSIEL CASAS MD [facility] [place] 11/30/2019 10:27:00 AM EDT MEDENT ([facility]) Massiel Casas MD: [address], [place] [address], Ph. Attender: MASSIEL CASAS MD [facility] - Main Schedule 11/30/2019 12:00:00 AM EDT LYNNE ([facility]) Outpatient Attender: MASSIEL CASAS MD [facility] [place] 09/19/2019 01:38:00 PM EDT MEDENT ([facility]) Outpatient Attender: 0000{ CHRISTIANE 09/19/2019 01:29:00 PM E DT [facility] Outpatient Attender: MASSIEL CASAS MD 09/19/2019 01: 29:00 PM EDT UNSPECIFIED ABDOMINAL PAIN S/P HERNIA REPAIR , PAIN AND BULG [facility] UNSPECIFIED ABDOMINAL PAIN S/P HERNIA RE PAIR , PAIN AND BULG Massiel Casas MD: [address], [place] [address], Ph. Attender: MASSIEL CASAS MD [facility] - Main Schedule 09/19/2019 12:00:00 AM EDT LYNNE ([facility]) Massiel Casas MD: [address], [place] [address], Ph. Attender: MASSIEL CASAS MD [facility] - Main Schedule 09/19/2019 12:00:00 AM EDT LYNNE ([facility]) Outpatient Attender: Anastasiya Gracia NP [facility] Internal Med a [place] 08/29/2019 10:13:00 AM EST MEDENT ([facility]) Anastasiya Gracia MINERAL ENGINEER: [address], [place] [address], Ph. Attender: Anastasiya Gracia NP [facility] Main Schedule 08/29/2019 12:00:00 AM EST LYNNE ([facility] ) Anastasiya Gracia NP: [address], [place] [address], Ph. Attender: Anastasiya Gracia NP [facility] Main Schedule 08/29/2019 12:00:00 AM EST LYNNE ([facility] ) Anastasiya Gracia MINERAL ENGINEER: [address], [place] [address], Ph. Attender: Anastasiya Gracia NP [facility] Main Schedule 08/29/2019 12:00:00 AM EST LYNNE ([facility] ) Outpatient Referrer: TRISTAN VASQUEZ MD 07/19/2019 10:24:16 AM EST [facility] Medications Medication Brand Name Start Date Product Form Dose Route Admi nistrative Instructions Pharmacy Instructions Status Indications Reaction Description Data Source(s) CarpalAid Large - CarpalAid Large - 07/22/2020 12:00:00 AM EST active CarpalAid Large - eCW1 ([facility]) CarpalAid Large - CarpalAid Large - 07/22/2020 12:00:00 AM EST active CarpalAid Large - eCW1 ([facility]) 50 mcg (2,000 unit) 07/17/2020 12:00:00 AM EST tablet 30 TAKE ONE TABLET BY MOUTH EVERY DAY TAKE ONE TABLET BY MOUTH EVERY DAY SOLD: 07/17/2020 [facility] Ergocalciferol 85984 UNT Oral Capsule vi tamin D, Ergocalciferol, 1.25 MG (33719 UT) CAPS vitamin D, Ergocalciferol, 1.25 MG (75810 UT) CAPS 11/2020 12:00:00 AM EST active [facility] 1,250 mcg (50,000 unit) 07/17/2020 12:00:00 AM EST capsule 4 TAKE ONE CAPSULE BY MOUTH ONCE WEEKLY TAKE ONE CAPSULE BY MOUTH ONCE WEEKLY SOLD: 07/17/2020 [facility] Ergocalciferol 50 MCG (2000 UT) UNK 07/16/2020 12:00:00 AM EST 1.0 {tablet} active Ergocalciferol 50 MCG (20 00 UT) eCW1 ([facility]) Ergocalciferol 50 MCG (2000 UT) UNK 07/16/2020 12:00:00 AM EST 1.0 {tablet} active Ergocalciferol 50 MCG (20 00 UT) [facility] ([facility]) Ergocalciferol 43336 UNT Oral Capsule Vi tamin D (Ergocalciferol) 1.25 MG (23142 UT) Vitamin D (Ergocalciferol) 1.25 MG (46066 UT) 07/05/2020 12:00:0 0 AM EST 1.0 {capsule} active Vitamin D (Ergocal ciferol) 1.25 MG (42436 UT) [facility] ([facility]) Ergocalciferol 08927 UNT Oral Capsule Vi tamin D (Ergocalciferol) 1.25 MG (98606 UT) Vitamin D (Ergocalciferol) 1.25 MG (58383 UT) 07/05/2020 12:00:0 0 AM EST 1.0 {capsule} active Vitamin D (Ergocal ciferol) 1.25 MG (03973 UT) eCW1 ([facility]) Ergocalciferol 15034 UNT Oral Capsule Vi tamin D (Ergocalciferol) 1.25 MG (44202 UT) Vitamin D (Ergocalciferol) 1.25 MG (17929 UT) 07/05/2020 12:00:0 0 AM EST 1.0 {capsule} active Vitamin D (Ergocal ciferol) 1.25 MG (64378 UT) eCW1 ([facility]) Folic Acid 1 MG Oral Tablet folic acid (FOLVITE) 1 MG tablet folic acid (FOLVITE) 1 MG tablet 06/22/2020 12:00:00 AM EST 1000 ug Oral active Take 1,000 mcg by mouth daily [facility] Folic Acid 1 MG Oral Tablet Folic Acid 1 MG 06/22/2020 12:00:00 AM EST 1.0 {tablet} active Folic Acid 1 MG eCW1 ([facility]) Folic Acid 1 MG Oral Tablet Folic Acid 1 MG 06/22/2020 12:00:00 AM EST 1.0 {tablet} active Folic Acid 1 MG eCW1 ([facility]) Folic Acid 1 MG Oral Tablet Folic Acid 1 MG 06/22/2020 12:00:00 AM EST 1.0 {tablet} active Folic Acid 1 MG eCW1 ([facility]) Folic Acid 1 MG Oral Tablet Folic Acid 1 MG 06/22/2020 12:00:00 AM EST 1.0 {tablet} active Folic Acid 1 MG eCW1 ([facility]) Lisinopril 10 MG Oral Tablet lisinopril (PRINIVIL,ZEST RIL) 10 MG tablet lisinopril (PRINIVIL,ZESTRIL) 10 MG tablet 06/20/2020 12:00:00 AM EST 10 mg Oral active Take 10 mg by mouth daily [facility] Lisinopril 10 MG Oral Tablet Lisinopril 05/14/2020 12:00:00 AM EST ORAL active MEDENT ([facility]) Tylenol Tylenol 05/07/2020 12:00:00 AM EDT ORAL active MEDENT ([facility]) No Active Medications 04/11/2020 12:00:00 AM EDT completed MEDENT ([facility]) Acetaminophen 325 MG / Hydrocodone Maryann trate 5 MG Oral Tablet [[place]] [place] 5 mg-325 mg tablet Take 1 tablet every 6 hours by oral route for 5 days. [place] 5 mg-325 mg tablet Take 1 tablet every 6 hours by oral route for 5 days. 1 completed Acetaminophen 3 25 MG / Hydrocodone Bitartrate 5 MG Oral Tablet [[place]] LYNNE ([facility]) Acetaminophen 325 MG / Hydrocodone Maryann trate 5 MG Oral Tablet [[place]] Tacoma 5 mg-325 mg tablet Take 1 tablet every 6 hours by oral route for 5 days. [place] 5 mg-325 mg tablet Take 1 tablet every 6 hours by oral route for 5 days. 1 completed Acetaminophen 3 25 MG / Hydrocodone Bitartrate 5 MG Oral Tablet [[place]] LYNNE ([facility]) Acetaminophen 325 MG / Hydrocodone Maryann trate 5 MG Oral Tablet [[place]] [place]oma 5 mg-325 mg tablet Take 1 tablet every 6 hours by oral route for 5 days. [place] 5 mg-325 mg tablet Take 1 tablet every 6 hours by oral route for 5 days. 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 [id number] SP [id number] [facility] HEALTH CARE [id number] SP [id number] [facility] [id number] [facility] [id number] Nikki [id number] [facility] HEALTH CARE O [id number] S [id number] [facility] HEALTH CARE [id number] SP [id number] [facility] HEALTH CARE [id number] SP [id number] [facility] [place] [id number] 18 [id number] [facility] HEALTH INSURANCE COMPANY-O/P [id number] 18 [id number] [facility] HEALTH INSURANCE COMPANY-O/P [id number] 18 [id number] HEALTH INS [place] [id number] 18 [id number] WORKERS COMPENSATION KARLA [id number] S [id number] MEDICAID M [id number] S [id number] MVP HEALTH CARE O [id number] S [id number] MEDICAID [id number] Nikki [id number] BABAR MEDICAID [id number] Nikki 7 [id number] BABAR [id number] SP [id number] MVP [id number] Nikki [id number] MEDICAID [id number] Nikki [id number] MEDICAID [id number] SP [id number] MEDICAID [id number] Nikki [id number] MEDICAID PI PI SELF PAY ONLY [id number] SP [id number] MVP [id number] Nikki [id number] MVP [id number] Nikki [id number] MVP HEALTH CARE [id number] SP [id number] MVP HEALTH CARE [id number] SP [id number] P HEALTH CARE [id number] SP [id number] MVP Gold Commercial [id number] Self [id number] [place] Workers Compensation [id number] Self [id number] LIBERTY MUTUAL INS [place] O [id number] S [id number] P HEALTH CARE [id number] SP [id number] 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 [id number] SP [id number] P HEALTH CARE HEA [id number] S [id number] LIBERTY MUTUAL CC# [id number] SP C C# [id number] LIBERTY MUTUAL O [id number] S [id number] 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 [id number] SP [id number] P HEALTH CARE [id number] SP [id number] LIBERTY MUTUAL [id number] SP [id number] LIBERTY MUTUAL [id number] SP [id number] P HEALTH CARE [id number] SP [id number] 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 [id number] SP [id number] 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 [id number] SP [id number] P HEALTH CARE [id number] SP [id number] MVP HEALTH CARE [id number] SP [id number] P HEALTH CARE [id number] SP [id number] 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 [id number] SP [id number] LIBERTY MUTUAL WC W [id number] Empl [id number] MVP H [id number] Self [id number] LIBERTY MUTUAL INS CO O [id number] S [id number] 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 [id number] SP [id number] [employer] [place] [employer] Compensation Self MVP Gold Commercial Self LIBERTY MUTUAL [id number] SP [id number] 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 [id number] SP [id number] [facility] PHY [id number] SP [id number] MVP (pr) Commercial Self BS [place] Commercial Self MVP HEALTH PLAN O [id number] S [id number] [employer] BCBS P [id number] S [id number] [id number] [place]BS [place] PPO 302/307 [id number] SP [id number] [place] P[place] 302/307 [id number] SP [id number] BCBS [place] 304/804 [id number] SP [id number] Problems, Conditions, and Diagnoses Code Display Name Description Problem Type Effective Dates Data Source(s) G47.33 [id number] Obstructive sleep apnea Problem 08/21/2020 1 2:00:00 AM EST eCW1 ([facility]) M35.9 [id number] Undifferentiated connective tissue diseas e Problem 07/16/2020 12:00:00 AM EST eCW1 ([facility]) R53.82 [id number] Chronic fatigue Problem 07/16/2020 12:00:00 AM EST eCW1 ([facility]) G56.02 [id number] Carpal tunnel syndrome of left wrist P roblem 07/16/2020 12:00:00 AM EST eCW1 ([facility]) E55.9 [id number] Vitamin D deficiency Problem 07/05/2020 12:0 0:00 AM EST eCW1 ([facility]) R20.2 [id number] Paresthesias Problem 06/22/2020 12:00:00 AM EST eCW1 ([facility]) 03874662 Essential hypertension Essential hypertension Problem 05/07/2020 12:00:00 AM EDT TWAN ([facility], ) R030 Elevated blood-pressure reading, without diagnosis of hypertension Elevated blood-pressure reading, without diagnosis of hypertension Diagnosis 05/21/2020 07:18:00 AM [facility] E781 Pure hyperglyceridemia Pure hyperglyceridemia Diagnosi s 05/14/2020 08:48:00 AM [facility] R760 Raised antibody titer Raised antibody titer Diagnosis 05/14/2020 08:48:00 AM [facility] L45336 Pain in left hand Pain in left hand Diagnosis 05/14/2020 08:48:00 AM [facility] R4702 Dysphasia Dysphasia Diagnosis 05/14/2020 08:48:00 AM [facility] K439 Ventral hernia without obstruction or ga ngrene Ventral hernia without obstruction or gangrene Diagnosis 05/14/2020 08:48:00 AM [facility] K449 Diaphragmatic hernia without obstruction or gangrene Diaphragmatic hernia without obstruction or gangrene Diagnosis 05/14/2020 08:48:00 AM [facility] K219 Gastro-esophageal reflux disease without esophagitis Gastro-esophageal reflux disease without esophagitis Diagnosis 04/20/2020 09:39:00 AM [facility] R61 Generalized hyperhidrosis Generalized hyperhidrosis Di agnosis 04/20/2020 09:39:00 AM [facility] Z6835 Body mass index [BMI] 35.0-35.9, adult B brie mass index [BMI] 35.0-35.9, adult Diagnosis 04/11/2020 03:09:00 PM [facility] E669 Obesity, unspecified Obesity, unspecified Diagnosis 04/11/2020 03:09:00 PM [facility] L659 Nonscarring hair loss, unspecified Nonscarring h air loss, unspecified Diagnosis 04/11/2020 03:09:00 PM [facility] Z0000 Encounter for general adult medical exam ination without abnormal findings Encounter for general adult medical examination without abnormal findings Diagnosis 04/11/2020 03:09:00 PM [facility] Surgeries/Procedures Procedure Description Date Indications Data Source(s) Needle electromyography, each extremity, with related paraspinal areas, when performed, done with nerve conduction, amplitude and latency/velocity study; complete, five or more muscles studied, innervated by three or more nerves or four or more spinal levels (list separately in addition to the code for primary procedure). 07/05/2020 12:00:00 AM EST MEDEN T ([facility]) Needle electromyography, each extremity, with related paraspinal areas, when performed, done with nerve conduction, amplitude and latency/velocity study; complete, five or more muscles studied, innervated by three or more nerves or four or more spinal levels (list separately in addition to the code for primary procedure). 07/05/2020 12:00:00 AM EST MEDEN T ([facility]) [address] Nerve conduction studies 13 or more studies NEW 201207/05/2020 12:00:00 AM EST MEDENT ([facility]) Needle electromyography, each extremity, with related paraspinal areas, when performed, done with nerve conduction, amplitude and latency/velocity study; complete, five or more muscles studied, innervated by three or more nerves or four or more spinal levels (list separately in addition to the code for primary procedure). 07/04/2020 12:00:00 AM EST MEDEN T ([facility] ) Needle electromyography, each extremity, with related paraspinal areas, when performed, done with nerve conduction, amplitude and latency/velocity study; complete, five or more muscles studied, innervated by three or more nerves or four or more spinal levels (list separately in addition to the code for primary procedure). 07/04/2020 12:00:00 AM EST MEDEN T ([facility]) Needle Electromyography Non Extremity Done With Nerve Conduc tion 07/04/2020 12:00:00 AM EST MEDENT ([facility]) [address] Nerve conduction studies 13 or more studies NEW 201207/04/2020 12:00:00 AM EST MEDENT ([facility]) Needle Electromyography Non Extremity Done With Nerve Conduc tion 07/04/2020 12:00:00 AM EST MEDENT ([facility]) Brief Emotional/Behav Assessment W/ Scoring Doc Per Standard Inst 04/11/2020 12:00:00 AM EDT MEDENT ([facility]) Admin Patient Focused Health Risk Assessment Instrument 04/11/2020 12:00:00 AM EDT MEDENT ([facility]) CT, abdomen + pelvis, w/ contrast 08/29/2019 12:00:00 AM EST LYNNE ([facility]) Results ID Date Data Source [id number] 08/23/2020 10:00:00 AM EST [facility] Name Value Range Interpretation Code Description Data Sarah rce(s) Supporting Document(s) SARS coronavirus 2 RNA Not Detected [facility] This lab was ordered by [facility] and reported by [facility]. ID Date Data Source [id number] 08/07/2020 10:57:14 AM EST [facility]FORMATIONPatient MRN Name Date of Age Gend*PT [id number] Stephan Chance 1985 35 years M ---PT Location Admission Date/Time Visit ID Attending Provider --- --- --- --- EPI ID CSN Admitting Provider [id number] ---Stephan NegreteeMRN: [id number] for consult: patient presents for an evaluation of recurrent hiatalhernia and reflux. Had prior robotic repair in 12/31/[address] Vasquez and Jackson. Was seen in March with noted epigastric pain. Upper gi did notsee a recurrence; small hiatal hernia on imaging 04/20/2020; endorses epigastricpain, vomiting after heavy meals, relieved with position; has not tried any ppior H2 shy.Patient recently noted to have a right upper abdominal hernia for the past 4months he has been working on a workman compensation is scheduled to undergosurgery [place] upper gi 04/20/2020Small hiatal hernia with mild GERDNo strictures or aspiration notedUpper gi 03/202018-- ordered by Dr VasquezFINTERRA: Motility: Normal. Mucosa: No masses, ulcers or strictures. Gastroesophageal Junction: No hiatal hernia or reflux identified. IMPRESSION: Negative Barium swallow.Past Medical History:Past Medical History:Diagnosis Date Sharpe's esophagus Blood in stool Chronic cough Colon polyps Epigastric pain Fatigue unusual Gastro-esophageal reflux disease with esophagitis GERD (gastroesophageal reflux disease) Hiatal hernia NumbnessPast Surgical History:Past Surgical History:Procedure Laterality Date CHOLECYSTECTOMY 05/2017 COLONOSCOPY W/ POLYPECTOMY ESOPHAGOGASTRODUODENOSCOPY 04/2017 ESOPHAGOSCOPY N/A 12/31/2017 Procedure: ESOPHAGOSCOPY; Surgeon: Tristan Vasquez MD; Laterality: N/A; HERNIA REPAIR 05/23/2016 umbilical PARAESOPHAGEAL HERNIA REPAIR N/A 12/31/2017 Procedure: REPAIR HERNIA PARAESOPHAGEAL LAPAROSCOPIC FUNDOPLICATION W XIROBOTICS; Surgeon: Valentin Madsen MD; Laterality: N/A; PILONIDAL CYST DRAINAGEAllergies:Patient has no known drug allergies.Family History:No family history on file.Social History:Social HistoryTobacco Use Smoking status: Current Some Day Smoker Years: 4.00 Types: Cigars Smokeless tobacco: Never Used Tobacco comment: occassional cigarSubstance Use Topics Alcohol use: Yes Comment: 1-2/year Drug use: NoReview of Systems: Review of SystemsConstitutional: Positive for fatigue. Negative for activity change, appetitechange and diaphoresis.Respiratory: Positive for chest tightness. Negative for shortness of breath andwheezing.Cardiovascular: Positive for chest pain. Negative for palpitations and legswelling.Gastrointestinal: Positive for abdominal pain and vomiting. Negative forconstipation and diarrhea.Musculoskeletal: Positive for arthralgias. Negative for back pain and gaitproblem.Skin: Negative for pallor and rash.Physical Exam:Physical ExamConstitutional: He appears well-developed and well-nourished. No distress.Neck: Normal range of motion. Neck supple.Cardiovascular: Normal rate, regular rhythm, normal heart sounds and intactdistal pulses. Exam reveals no gallop and no friction rub.No murmur heard.Pulmonary/Chest: Effort normal.Abdominal: Soft. Bowel sounds are normal. Mass: vental hernia, hard,non-reducible. There is tenderness (epigastric). There is no guarding. A hernia(ventral, midline, hard, non-reducible) is present.Skin: Skin is warm and dry. Capillary refill takes less than 2 seconds. He isnot diaphoretic.Psychiatric: He has a normal mood and affect. His behavior is normal. Thoughtcontent normal.Nursing note and vitals reviewed.Impression and Recommendation: Ventral hernia repair scheduledWait until he recovers then proceed with FLOREZ study/further imaging/revisionFamotidine and conservative management until florez studyPatient was seen and Examined by me personally during this visit.I fully reviewed the History and Physical findings and obtained my own historyand findings as outlined by Dr. York was completed by me and notable findins patient presents with recurrentheartburn and GERD symptoms his upper GI is not very impressive for significantreoccurrence the patient and I discussed at length his symptoms symptommanagement and further work-up to see if he needs any further surgical revisionof his GERD. The entire option of surgical management of his ventral herniaalong with any further GERD surgery was also discussed. Not so sure that hissymptoms of hiatal hernia and GERD recurred for the same reasons as he developedan acute traumatic ventral herniaI feel that we need to further quantify his GERD symptoms we need a Florez whichwe will schedule for after he is recovered from his ventral hernia surgery andafter probable he will return to the office for further discussions onmanagement of his GERD Discussed findings and plansThis office visit is completed on my behalf by Dr. Phil Madsen MD08/07/20 Name Value Range Interpretation Code Description Data Sarah rce(s) Supporting Document(s) ID Date Data Source [id number] 07/04/2020 09:55:00 AM EST MEDENT ([facility]) Name Value Range Interpretation Code Description Data Sarah rce(s) Supporting Document(s) Centromere protein B Ab [Units/volume] in Serum Laboratory test result 0.0-0.9 Normal (applies to non-numeric results) MEDENT ([facility]) Complement total hemolytic CH50 [Units/volume] in Seru m or Plasma Laboratory test result Normal (applies to non-numeric results) MEDENT ([facility]) Age Male Female 1 - 30 days [...] determine out of range values. Performed at: RN - [facility] [address] [id number] Flight Reservations Manager: Vielka Harrison MD, Phone: [phone] Performed at: - [facility] [address] [id number] Flight Reservations Manager: Suki You MD, Phone: [phone] ID Date Data Source [id number] 07/04/2020 09:55:00 AM EST MEDENT ([facility]) Name Value Range Interpretation Code Description Data Sarah rce(s) Supporting Document(s) Cardiolipin Iga Antibody Laboratory test result 0-11 Normal (applies to non- numeric results) MEDENT ([facility]) <content>Negative: <12</con tent>
<content>Indeterminate: 12 - 20</content>
<content>Low-Med Positive: >20 - 80</content>
<content>High Positive: >80</content>
<content></content> Cardiolipin Igm Antibody Laboratory test result 0-12 Normal (applies to non- numeric results) [facility] <content>Negative: <13</con tent>
<content>Indeterminate: 13 - 20</content>
<content>Low-Med Positive: >20 - 80</content>
<content>High Positive: >80</content>
<content></content> Cardiolipin Igg Antibody Laboratory test result 0-14 Normal (applies to non- numeric results) [facility] <content>Negative: <15</con tent>
<content>Indeterminate: 15 - 20</content>
<content>Low-Med Positive: >20 - 80</content>
<content>High Positive: >80</content>
<content></content> ID Date Data Source [id number] 07/04/2020 09:55:00 AM EST [facility] [facility] Name Value Range Interpretation Code Description Data Sarah rce(s) Supporting Document(s) Histone Ab [Presence] in Serum 0.6 units 0.0-0.9 N ormal (applies to non-numeric results) [facility] ([facility]) <content>Negative <1.0</c ontent>
<content>Weak Positive 1.0 - 1.5</content>
<content>Moderate Positive 1.6 - 2.5</content>
<content>Strong Positive >2.5</content>
<content></content> SCL-70 extractable nuclear Ab [Units/volume] in Serum Labora tory test result 0.0-0.9 Normal (applies to non-numeric results) [facility]) ID Date Data Source [id number] 07/04/2020 09:55:00 AM EST [facility]) Name Value Range Interpretation Code Description Data Sarah rce(s) Supporting Document(s) Beta-2 Glycoprotein I Kayla Igg Laboratory test result 0-20 Normal (applies to non-numeric results) [facility]) Result Units: GPI IgG units . The reference interval reflects a 3SD or 99th percentile interval, which is thought to represent a potentially clinically significant result in accordance with the International Consensus Statement on the classification criteria for definitive antiphospholipid syndrome (APS). J Thromb Haem 2006;4:295-306. Beta-2 Glycoprotein I Kayla Iga Laboratory test result 0-25 Normal (applies to non-numeric results) [facility]) Result Units: GPI IgA units . The reference interval reflects a 3SD or 99th percentile interval, which is thought to represent a potentially clinically significant result in accordance with the International Consensus Statement on the classification criteria for definitive antiphospholipid syndrome (APS). J Thromb Haem 2006;4:295-306. Beta-2 Glycoprotein I Kayla Igm Laboratory test result 0-32 Normal (applies to non-numeric results) [facility]) Result Units: GPI IgM units . The reference interval reflects a 3SD or 99th percentile interval, which is thought to represent a potentially clinically significant result in accordance with the International Consensus Statement on the classification criteria for definitive antiphospholipid syndrome (APS). J Thromb Haem 2006;4:295-306. ID Date Data Source [id number] 07/04/2020 09:55:00 AM EST [facility] ([facility]) Name Value Range Interpretation Code Description Data Sarah rce(s) Supporting Document(s) Creatine kinase [Enzymatic activity/volume] in Serum or Plasma 7 9 U/L 39-308 Normal (applies to non-numeric results) [facility] ([facility]) Phosphate [Moles/volume] in Serum or Plasma 3.2 mg/dL 2.5- 4.9 Normal (applies to non-numeric results) [facility] ([facility] ) Magnesium [Mass/volume] in Serum or Plasma 2.2 mg/dL 1.8-2 .4 Normal (applies to non-numeric results) [facility] ([facility]) Complement C3 [Mass/volume] in Serum or Plasma 108 mg/dL 9 0-180 Normal (applies to non-numeric results) [facility] ([facility]) Iron [Mass/volume] in Serum or Plasma 72 ug/dL 65-175 Normal (applies to non- numeric results) [facility] ([facility]) Cobalamin (Vitamin B12) [Mass/volume] in Serum or Plasma 276 pg/ mL 247-911 Normal (applies to non-numeric results) [facility] VITAMIN B12 NORMAL RANGE NORMAL 247 - 911 PG/ML INDETERMINATE 211 - 246 PG/ML DEFICIENT LESS THAN 211 PG/ML Calcidiol [Mass/volume] in Serum or Plasma 10.1 ng/mL 30.0- 100.0 Below low normal [facility] ([facility]) Complement C4 [Mass/volume] in Serum or Plasma 25 mg/dL 1 0-40 Normal (applies to non-numeric results) [facility] ([facility] ) ID Date Data Source [id number] 05/14/2020 09:59:00 AM EST [facility] ([facility]) Name Value Range Interpretation Code Description Data Sarah rce(s) Supporting Document(s) Laboratory test finding (navigational concept) Laboratory test r esult Abnormal (applies to non-numeric results) [facility] ([facility]) .~.~<DG1.3.1>R76.0</DG1.3.1><DG1.3.1>R47.02</DG1.3.1><DG1.3.1>R47.02</DG1.3.1><D G1.3 Laboratory test finding (navigational concept) Laboratory test result [facility] ([facility]) .~.~<DG1.3.1>R76.0</DG1.3.1><DG1.3.1>R47.02</DG1.3.1><DG1.3.1>R47.02</DG1.3.1><D G1.3 Laboratory test finding (navigational concept) Laboratory test result [facility] ([facility]) .~.~<DG1.3.1>R76.0</DG1.3.1><DG1.3.1>R47.02</DG1.3.1><DG1.3.1>R47.02</DG1.3.1><D G1.3 Note: Laboratory test result [facility] ([facility]) .~.~<DG1.3.1>R76.0</DG1.3.1><DG1.3.1>R47.02</DG1.3.1><DG1.3.1>R47.02</DG1.3.1><D G1.3 ID Date Data Source [id number] 05/14/2020 09:59:00 AM EST [facility] ([facility]) Name Value Range Interpretation Code Description Data Sarah rce(s) Supporting Document(s) Cytoplasmic (C-Anca) Laboratory test result [facility] ([facility]) .~.~<DG1.3.1>R76.0</DG1.3.1><DG1.3.1>R47.02</DG1.3.1><DG1.3.1>R47.02</DG1.3.1><D G1.3 Atypical pANCA Laboratory test result [facility] ([facility]) .~.~<DG1.3.1>R76.0</DG1.3.1><DG1.3.1>R47.02</DG1.3.1><DG1.3.1>R47.02</DG1.3.1><D G1.3 Perinuclear (P-Anca) Laboratory test result [facility] ([facility]) .~.~<DG1.3.1>R76.0</DG1.3.1><DG1.3.1>R47.02</DG1.3.1><DG1.3.1>R47.02</DG1.3.1><D G1.3 ID Date Data Source [id number] 05/14/2020 09:59:00 AM EST [facility] ([facility]) Name Value Range Interpretation Code Description Data Sarah rce(s) Supporting Document(s) Rheumatoid factor [Units/volume] in Serum or Plasma Laboratory t est result 0-14 [facility] ([facility]) .~.~<DG1.3.1>R76.0</DG1.3.1><DG1.3.1>R47.02</DG1.3.1><DG1.3.1>R47.02</DG1.3.1><D G1.3 ID Date Data Source [id number] 05/14/2020 09:59:00 AM EST [facility] ([facility]) Name Value Range Interpretation Code Description Data Sarah rce(s) Supporting Document(s) Sjogren's Anti-SS-A Laboratory test result 0.0-0.9 [facility] ([facility]) .~.~<DG1.3.1>R76.0</DG1.3.1><DG1.3.1>R47.02</DG1.3.1><DG1.3.1>R47.02</DG1.3.1><D G1.3 Sjogren's Anti-SS-B Laboratory test result 0.0-0.9 [facility] ([facility]) .~.~<DG1.3.1>R76.0</DG1.3.1><DG1.3.1>R47.02</DG1.3.1><DG1.3.1>R47.02</DG1.3.1><D G1.3 Chamberlain Antibodies Laboratory test result 0.0-0.9 [facility] ([facility]) .~.~<DG1.3.1>R76.0</DG1.3.1><DG1.3.1>R47.02</DG1.3.1><DG1.3.1>R47.02</DG1.3.1><D G1.3 CLAIM TECHNICIAN Antibodies Laboratory test result 0.0-0.9 [facility] ([facility]) .~.~<DG1.3.1>R76.0</DG1.3.1><DG1.3.1>R47.02</DG1.3.1><DG1.3.1>R47.02</DG1.3.1><D G1.3 Anti-Dna (DS) Ab Qn 6 IU/ml 0-9 [facility] ([facility]) .~.~<DG1.3.1>R76.0</DG1.3.1><DG1.3.1>R47.02</DG1.3.1><DG1.3.1>R47.02</DG1.3.1><D G1.3 ID Date Data Source [id number] 05/14/2020 09:59:00 AM EST [facility] ([facility]) Name Value Range Interpretation Code Description Data Sarah rce(s) Supporting Document(s) Dilute ProthrombinTime(dPT) 42.8 sec 0.0-55.0 [facility] ([facility]) .~.~<DG1.3.1>R76.0</DG1.3.1><DG1.3.1>R47.02</DG1.3.1><DG1.3.1>R47.02</DG1.3.1><D G1.3 dPT Confirm Ratio 1.11 Ratio 0.00-1.40 [facility] ([facility]) .~.~<DG1.3.1>R76.0</DG1.3.1><DG1.3.1>R47.02</DG1.3.1><DG1.3.1>R47.02</DG1.3.1><D G1.3 PTT-LA 33.8 sec 0.0-51.9 [facility] ([facility]) .~.~<DG1.3.1>R76.0</DG1.3.1><DG1.3.1>R47.02</DG1.3.1><DG1.3.1>R47.02</DG1.3.1><D G1.3 Thrombin Time 17.2 sec 0.0-23.0 [facility] ([facility]) .~.~<DG1.3.1>R76.0</DG1.3.1><DG1.3.1>R47.02</DG1.3.1><DG1.3.1>R47.02</DG1.3.1><D G1.3 Lupus ReflexInterpretation Laboratory test result [facility] ([facility]) .~.~<DG1.3.1>R76.0</DG1.3.1><DG1.3.1>R47.02</DG1.3.1><DG1.3.1>R47.02</DG1.3.1><D G1.3 dRVVT 44.4 sec 0.0-47.0 [facility] ([facility]) .~.~<DG1.3.1>R76.0</DG1.3.1><DG1.3.1>R47.02</DG1.3.1><DG1.3.1>R47.02</DG1.3.1><D G1.3 ID Date Data Source [id number] 05/14/2020 09:59:00 AM EST [facility] ([facility]) Name Value Range Interpretation Code Description Data Sarah rce(s) Supporting Document(s) Cyclic citrullinated peptide IgG Ab [Units/volume] in Serum or Plasma 11 units 0-19 [facility] ([facility]) .~.~<DG1.3.1>R76.0</DG1.3.1><DG1.3.1>R47.02</DG1.3.1><DG1.3.1>R47.02</DG1.3.1><D G1.3 ID Date Data Source [id number] 05/17/2020 07:12:00 AM [facility] Name Value Range Interpretation Code Description Data Sarah rce(s) Supporting Document(s) Cyclic citrullinated peptide IgA+IgG Ab [Units/volume] in Serum or Plasma by Immunoassay 11 units 0-19 [facility] Negative <20 Weak positive 20 - 39 Moderate positive 40 - 59 Strong positive >59 ID Date Data Source [id number] 05/16/2020 07:09:00 PM [facility] Value Range Interpretation Code Description Data [facility] rce(s) Supporting Document(s) Neutrophil cytoplasmic Ab.classic [Titer] in Serum by Immunofluorescence <1:20 titer Neg:<1:20 [facility] Neutrophil cytoplasmic Ab.perinuclear [Titer] in Serum by Immunofluorescence <1:20 titer Neg:<1:20 [facility] The presence of positive fluorescence ex hibiting P-ANCA or C-ANCApatterns alone is not specific for the diagnosis of Melissa'sGranulomatosis (WG) or microscopic polyangiitis. Decisions abouttreatment should not be based solely on ANCA IFA results. TheInternational ANCA Group Consensus recommends follow up testing ofpositive sera with both WV-3 and MPO-ANCA enzyme immunoassays. Asmany as 5% serum samples are positive only by EIA.Ref. AM J Clin Pathol 1999;111:507-513. Neutrophil cytoplasmic Ab.perinuclear.at ypical [Titer] in Serum by Immunofluorescence <1:20 titer Neg:<1:20 [facility] The atypical pANCA pattern has been obse rved in a significantpercentage of patients with ulcerative colitis, primary sclerosingcholangitis and autoimmune hepatitis. ID Date Data Source [id number] 05/15/2020 07:15:00 PM EST [facility] Name Value Range Interpretation Code Description Data Sarah rce(s) Supporting Document(s) Nuclear Ab [Titer] in Serum by Immunofluorescence Positive A [facility] Negative <1:80 Borderline 1:80 Positive >1:80 Nuclear Ab Pattern Homogenous [Titer] in Serum 1:80 [facility] Nuclear Ab pattern.speckled [Titer] in Serum 1:80 [facility] Note: [facility] A positive RADHA result may occur in healt hy individuals (lowtiter) or be associated with a variety of diseases. Seeinterpretation chart which is not all inclusive:Pattern Antigen Detected Suggested Disease Association Homogeneous DNA(ds,ss), SLE - High titers Nucleosomes, Histones Drug-induced SLE Speckled Sm, CLAIM TECHNICIAN, SCL-70, SLE,MCTD,PSS (diffuse form), SS-A/SS-B Sjogrens Nucleolar SCL-70, PM-1/SCL High titers Scleroderma, PM/DM Centromere Centromere PSS (limited form) w/Crest syndrome variable Nuclear Dot [id number] Primary Biliary Cirrhosis Nuclear GP210, Primary Biliary CirrhosisMembrane massiel A,B,C ID Date Data Source [id number] 05/15/2020 04:26:00 PM [facility] Name Value Range Interpretation Code Description Data Sarah rce(s) Supporting Document(s) Sjogrens syndrome-A extractable nuclear Ab [Units/volume] in Serum <0.2 AI 0.0-0.9 [facility] Sjogrens syndrome-B extractable nuclear Ab [Units/volume] in Serum <0.2 AI 0.0-0.9 [facility] Ribonucleoprotein extractable nuclear Ab [Units/volume] in S isaiah <0.2 AI 0.0-0.9 [facility] Chamberlain extractable nuclear Ab [Units/volume] in Serum <0.2 AI 0.0-0 .9 [facility] DNA double strand Ab [Units/volume] in Serum 6 IU/mL 0-9 [facility] Negative <5 Equivocal 5 - 9 Positive >9 ID Date Data Source [id number] 05/14/2020 11:15:00 AM [facility] Value Range Interpretation Code Description Data Sarah rce(s) Supporting Document(s) RA QUANT <10 IU/mL 0 - 14 [facility] ID Date Data Source [id number] 05/27/2020 06:41:00 AM [facility] Name Value Range Interpretation Code Description Data Sarah rce(s) Supporting Document(s) aPTT.lupus sensitive W excess phospholip id actual/Normal (normalized LA confirm) 42.8 sec 0.0-55.0 [facility] aPTT.lupus sensitive/aPTT.lupus sensitiv e W excess phospholipid (screen to confirm ratio) 1.11 Ratio 0.00-1.40 [facility] l Thrombin time 17.2 sec 0.0-23.0 [facility] sp[facility] aPTT.lupus sensitive (LA screen) 33.8 sec 0.0-51.9 [facility] dRVVT (LA screen) 44.4 sec 0.0-47.0 [facility] Lupus anticoagulant two screening tests W Reflex [interpretation] C omment: [facility] No lupus anticoagulant was detected. ID Date Data Source [id number] 04/24/2020 10:14:00 AM EDT [facility] [address] [place] [address] PHONE: [phone] FAX: [phone] Name .................. : ROBSON Rosas Acct Number.................. : [id number] ROOM. ................. : Number ................... : [id number] Stay type ............. : O/P Discharge Date......... ... : 04/20/20 Admit Date ......... : 04/20/20 Admit Phys .................... : CANAS HARD Date of ....... : 1985 Family Phys ................... : LUIS ENRIQUE GR Phone .................. : [phone] Age ................................ : 35 Film# .................. .:[id number] Sex ................................. : M Unsigned transcriptions are preliminary reports and do not represent a medical or legal document ESOPHAGRAM [id number] COMPLETE:04/20/20 13:46 BEM 50945 (REASON FOR EXAM: DYSPHASIA BARIUM ESOPHAGRAM: INDICATION: Dysphagia. FINDINGS: The chest informatica mdm developer film shows no focal infiltrate or consolidation. Following administration of gas crystals and barium, the esophagus shows a small hiatal hernia and mild gastroesophageal reflux. No stricture formation is identified. No aspiration is identified. IMPRESSION: Small hiatal hernia and mild gastroesophageal reflux. Examination is otherwise unremarkable. 36 seconds of fluoroscopy was utilized and 29 images are obtained. Examination dictated by SORAYA Solorzano. Examination was reviewed with Hope Dawn MD, radiologist at the time of this dictation. Electronically Reviewed and Signed By Hope Dawn MD , 04/24/20 10:14, KGG Transcribe Initials: DZ , Transcribe Date: 04/21/20 02:47, Dictation Date: Copy for: [address] [place] [address] REC Page 1 of 1 Name Value Range Interpretation Code Description Data Sarah rce(s) Supporting Document(s) ID Date Data Source [id number] 04/24/2020 10:13:00 AM EDT [facility] [address] [place] [address] PHONE: [phone] FAX: [phone] Name .................. : ROBSON Rosas Acct Number.................. : [id number] ROOM. ................. : Number ................... : [id number] Stay type ............. : O/P Discharge Date......... ... : 04/20/20 Admit Date ......... : 04/20/20 Admit Phys .................... : FLORESITA ROSARIO Date of ....... : 1985 Family Phys ................... : LUIS ENRIQUE SIMÓN Phone .................. : [phone] Age ................................ : 35 Film# .................. .:[id number] Sex ................................. : M Unsigned transcriptions are preliminary reports and do not represent a medical or legal document HAND COMPLETE-3 OR MORE VWS L [id number] COMPLETE:04/20/20 16:19 [facility] [address] (REASON FOR PROCESS: PAIN LEFT HAND X-RAY: INDICATION: Pain. FINDINGS: There is persistent flexion of the fifth proximal interphalangeal joint suggesting a ligamentous injury. No clear evidence of a fracture is identified. The joint spaces are preserved. The soft tissues appear unremarkable. IMPRESSION: Persistent flexion of the fifth proximal interphalangeal joint raising suspicion for a contracture or ligamentous injury. Clinical correlation is recommended. Examination dictated by SORAYA Solorzano. Examination was reviewed with Hope Dawn MD, radiologist at the time of this dictation. Electronically Reviewed and Signed By Hope Dawn MD , 04/24/20 10:13, KGG Transcribe Initials: PIPER , Transcribe Date: 04/21/20 02:19, Dictation Date: Copy for: [address] [place] [address] Page 1 of 1 Name Value Range Interpretation Code Description Data Sarah rce(s) Supporting Document(s) ID Date Data Source [id number] 05/01/2020 07:15:00 PM EDT [facility] Name Value Range Interpretation Code Description Data Sarah rce(s) Supporting Document(s) LAB - SPECIMEN REJECTION [facility] Specimen Integrity/Specimen Recollection The patient sample needs to be resubmitted for the following reason: Test(s) Ordered INSULIN FREE & TOTAL [facility] Rejection Reason QNS [facility] { One or more of the tests you ordered cannot be performed.{ Please recollect, reorder, and resubmit if needed. ID Date Data Source [id number] 04/20/2020 09:46:00 AM EDT [facility] ([facility]) Name Value Range Interpretation Code Description Data Sarah rce(s) Supporting Document(s) Hemoglobin A1c/Hemoglobin.total in Blood 5.6 % 4.4-6.1 [facility] ([facility]) FASTING~.~.~<DG1.3.1>Z00.00</DG1.3.1><DG1.3.1>Z00.00</DG1.3.1><DG1.3.1>L65.9</DG 1.3.1><DG1.3 Thyrotropin [Units/volume] in Serum or Plasma 0.64 uIU/mL 0.47-5.01 [facility] ([facility]) FASTING~.~.~<DG1.3.1>Z00.00</DG1.3.1><DG1.3.1>Z00.00</DG1.3.1><DG1.3.1>L65.9</DG 1.3.1><DG1.3 Thyroxine (T4) free [Mass/volume] in Serum or Plasma 1.31 ng/dL 0.93- 1.70 [facility] ([facility]) FASTING~.~.~<DG1.3.1>Z00.00</DG1.3.1><DG1.3.1>Z00.00</DG1.3.1><DG1.3.1>L65.9</DG 1.3.1><DG1.3 ID Date Data Source [id number] 04/20/2020 09:46:00 AM EDT [facility] ([facility]) Name Value Range Interpretation Code Description Data Sarah rce(s) Supporting Document(s) Cve Panel Laboratory test result [facility] ([facility]) FASTING~.~.~<DG1.3.1>Z00.00</DG1.3.1><DG1.3.1>Z00.00</DG1.3.1><DG1.3.1>L65.9</DG 1.3.1><DG1.3 Cholesterol 154 mg/dL 131-200 [facility] ([facility]) FASTING~.~.~<DG1.3.1>Z00.00</DG1.3.1><DG1.3.1>Z00.00</DG1.3.1><DG1.3.1>L65.9</DG 1.3.1><DG1.3 Triglycerides 223 mg/dL 35-160 Above high normal [facility] ([facility]) FASTING~.~.~<DG1.3.1>Z00.00</DG1.3.1><DG1.3.1>Z00.00</DG1.3.1><DG1.3.1>L65.9</DG 1.3.1><DG1.3 LDL 89 mg/dL 65-175 [facility] ([facility]) FASTING~.~.~<DG1.3.1>Z00.00</DG1.3.1><DG1.3.1>Z00.00</DG1.3.1><DG1.3.1>L65.9</DG 1.3.1><DG1.3 Risk Factor 5.0 3.4-4.9 Above high normal [facility] ([facility]) FASTING~.~.~<DG1.3.1>Z00.00</DG1.3.1><DG1.3.1>Z00.00</DG1.3.1><DG1.3.1>L65.9</DG 1.3.1><DG1.3 HDL 31 mg/dL 29-86 [facility] ([facility]) FASTING~.~.~<DG1.3.1>Z00.00</DG1.3.1><DG1.3.1>Z00.00</DG1.3.1><DG1.3.1>L65.9</DG 1.3.1><DG1.3 LDL/HDL 2.87 1.00-3.55 [facility] ([facility]) FASTING~.~.~<DG1.3.1>Z00.00</DG1.3.1><DG1.3.1>Z00.00</DG1.3.1><DG1.3.1>L65.9</DG 1.3.1><DG1.3 ID Date Data Source [id number] 04/20/2020 09:46:00 AM EDT [facility] ([facility]) Name Value Range Interpretation Code Description Data Sarah rce(s) Supporting Document(s) C reactive protein [Mass/volume] in Serum or Plasma by High sensitivity method 4.45 mg/L 1.00-3.00 Above high normal [facility] ([facility]) FASTING~.~.~<DG1.3.1>Z00.00</DG1.3.1><DG1.3.1>Z00.00</DG1.3.1><DG1.3.1>L65.9</DG 1.3.1><DG1.3 ID Date Data Source [id number] 04/20/2020 09:46:00 AM EDT [facility] ([facility]) Name Value Range Interpretation Code Description Data Sarah rce(s) Supporting Document(s) Sed Rate 4 mm/hr 0-15 [facility] ([facility]) FASTING~.~.~<DG1.3.1>Z00.00</DG1.3.1><DG1.3.1>Z00.00</DG1.3.1><DG1.3.1>L65.9</DG 1.3.1><DG1.3 Sed Rate Reenter 4 [facility] ([facility]) FASTING~.~.~<DG1.3.1>Z00.00</DG1.3.1><DG1.3.1>Z00.00</DG1.3.1><DG1.3.1>L65.9</DG 1.3.1><DG1.3 ID Date Data Source [id number] 04/20/2020 09:46:00 AM EDT [facility] ([facility]) Name Value Range Interpretation Code Description Data Sarah rce(s) Supporting Document(s) Potassium 4.4 meq/L 3.6-5.0 [facility] ([facility]) FASTING~.~.~<DG1.3.1>Z00.00</DG1.3.1><DG1.3.1>Z00.00</DG1.3.1><DG1.3.1>L65.9</DG 1.3.1><DG1.3 Comprehensive [employer] Laboratory test result [facility] ([facility]) FASTING~.~.~<DG1.3.1>Z00.00</DG1.3.1><DG1.3.1>Z00.00</DG1.3.1><DG1.3.1>L65.9</DG 1.3.1><DG1.3 Sodium 139 meq/L 134-153 [facility] ([facility]) FASTING~.~.~<DG1.3.1>Z00.00</DG1.3.1><DG1.3.1>Z00.00</DG1.3.1><DG1.3.1>L65.9</DG 1.3.1><DG1.3 Chloride 103 meq/L 98-107 [facility] ([facility]) FASTING~.~.~<DG1.3.1>Z00.00</DG1.3.1><DG1.3.1>Z00.00</DG1.3.1><DG1.3.1>L65.9</DG 1.3.1><DG1.3 Glucose 107 mg/dL 65-110 [facility] ([facility]) FASTING~.~.~<DG1.3.1>Z00.00</DG1.3.1><DG1.3.1>Z00.00</DG1.3.1><DG1.3.1>L65.9</DG 1.3.1><DG1.3 Co2 26 meq/L 22-30 [facility] ([facility]) FASTING~.~.~<DG1.3.1>Z00.00</DG1.3.1><DG1.3.1>Z00.00</DG1.3.1><DG1.3.1>L65.9</DG 1.3.1><DG1.3 BUN/Creat 12 8-27 [facility] ([facility]) FASTING~.~.~<DG1.3.1>Z00.00</DG1.3.1><DG1.3.1>Z00.00</DG1.3.1><DG1.3.1>L65.9</DG 1.3.1><DG1.3 Creatinine 0.9 mg/dL 0.7-1.5 [facility] ([facility]) FASTING~.~.~<DG1.3.1>Z00.00</DG1.3.1><DG1.3.1>Z00.00</DG1.3.1><DG1.3.1>L65.9</DG 1.3.1><DG1.3 BUN 11 mg/dL 7-21 [facility] ([facility]) FASTING~.~.~<DG1.3.1>Z00.00</DG1.3.1><DG1.3.1>Z00.00</DG1.3.1><DG1.3.1>L65.9</DG 1.3.1><DG1.3 Total Protein 7.1 g/dL 6.3-8.2 [facility] ([facility]) FASTING~.~.~<DG1.3.1>Z00.00</DG1.3.1><DG1.3.1>Z00.00</DG1.3.1><DG1.3.1>L65.9</DG 1.3.1><DG1.3 Globulin 2.4 GM/DL 2.4-3.2 [facility] ([facility]) FASTING~.~.~<DG1.3.1>Z00.00</DG1.3.1><DG1.3.1>Z00.00</DG1.3.1><DG1.3.1>L65.9</DG 1.3.1><DG1.3 Albumin 4.7 g/dL 3.9-5.0 [facility] ([facility]) FASTING~.~.~<DG1.3.1>Z00.00</DG1.3.1><DG1.3.1>Z00.00</DG1.3.1><DG1.3.1>L65.9</DG 1.3.1><DG1.3 Calcium 9.2 mg/dL 8.4-10.2 [facility] ([facility]) FASTING~.~.~<DG1.3.1>Z00.00</DG1.3.1><DG1.3.1>Z00.00</DG1.3.1><DG1.3.1>L65.9</DG 1.3.1><DG1.3 A/G Ratio 2.0 0.8-2.0 [facility] ([facility]) FASTING~.~.~<DG1.3.1>Z00.00</DG1.3.1><DG1.3.1>Z00.00</DG1.3.1><DG1.3.1>L65.9</DG 1.3.1><DG1.3 Total Bili 0.7 mg/dL 0.2-1.3 [facility] ([facility]) FASTING~.~.~<DG1.3.1>Z00.00</DG1.3.1><DG1.3.1>Z00.00</DG1.3.1><DG1.3.1>L65.9</DG 1.3.1><DG1.3 SGPT/Alt 55 U/L 7-56 [facility] ([facility]) FASTING~.~.~<DG1.3.1>Z00.00</DG1.3.1><DG1.3.1>Z00.00</DG1.3.1><DG1.3.1>L65.9</DG 1.3.1><DG1.3 Sgot/Ast 31 U/L 5-40 [facility] ([facility]) FASTING~.~.~<DG1.3.1>Z00.00</DG1.3.1><DG1.3.1>Z00.00</DG1.3.1><DG1.3.1>L65.9</DG 1.3.1><DG1.3 Alkaline Phos 91 U/L 38-126 [facility] ([facility]) FASTING~.~.~<DG1.3.1>Z00.00</DG1.3.1><DG1.3.1>Z00.00</DG1.3.1><DG1.3.1>L65.9</DG 1.3.1><DG1.3 Non-Aa GFR Laboratory test result [facility] ([facility]) FASTING~.~.~<DG1.3.1>Z00.00</DG1.3.1><DG1.3.1>Z00.00</DG1.3.1><DG1.3.1>L65.9</DG 1.3.1><DG1.3 Anion Gap 10.0 mmol/L 8.0-16.0 [facility] ([facility]) FASTING~.~.~<DG1.3.1>Z00.00</DG1.3.1><DG1.3.1>Z00.00</DG1.3.1><DG1.3.1>L65.9</DG 1.3.1><DG1.3 Age 35 yrs [facility] ([facility]) FASTING~.~.~<DG1.3.1>Z00.00</DG1.3.1><DG1.3.1>Z00.00</DG1.3.1><DG1.3.1>L65.9</DG 1.3.1><DG1.3 Afr Amer GFR Laboratory test result [facility] ([facility]) FASTING~.~.~<DG1.3.1>Z00.00</DG1.3.1><DG1.3.1>Z00.00</DG1.3.1><DG1.3.1>L65.9</DG 1.3.1><DG1.3 ID Date Data Source [id number] 04/20/2020 09:46:00 AM EDT [facility] ([facility]) Name Value Range Interpretation Code Description Data Sarah rce(s) Supporting Document(s) CBC W/Automated Diff Laboratory test result [facility] ([facility]) FASTING~.~.~<DG1.3.1>Z00.00</DG1.3.1><DG1.3.1>Z00.00</DG1.3.1><DG1.3.1>L65.9</DG 1.3.1><DG1.3 WBC 6.5 10^3/uL 4.2-11.0 [facility] ([facility]) FASTING~.~.~<DG1.3.1>Z00.00</DG1.3.1><DG1.3.1>Z00.00</DG1.3.1><DG1.3.1>L65.9</DG 1.3.1><DG1.3 Hemoglobin 15.3 g/dL 14.0-16.0 [facility] ([facility]) FASTING~.~.~<DG1.3.1>Z00.00</DG1.3.1><DG1.3.1>Z00.00</DG1.3.1><DG1.3.1>L65.9</DG 1.3.1><DG1.3 RBC 5.01 10^6/uL 4.50-6.30 [facility] ([facility]) FASTING~.~.~<DG1.3.1>Z00.00</DG1.3.1><DG1.3.1>Z00.00</DG1.3.1><DG1.3.1>L65.9</DG 1.3.1><DG1.3 Hematocrit 43.9 % 41.0-51.0 [facility] ([facility]) FASTING~.~.~<DG1.3.1>Z00.00</DG1.3.1><DG1.3.1>Z00.00</DG1.3.1><DG1.3.1>L65.9</DG 1.3.1><DG1.3 MCV 87.6 fL 80.0-94.0 [facility] ([facility]) FASTING~.~.~<DG1.3.1>Z00.00</DG1.3.1><DG1.3.1>Z00.00</DG1.3.1><DG1.3.1>L65.9</DG 1.3.1><DG1.3 MCHC 34.9 g/dL 31.0-36.0 [facility] ([facility]) FASTING~.~.~<DG1.3.1>Z00.00</DG1.3.1><DG1.3.1>Z00.00</DG1.3.1><DG1.3.1>L65.9</DG 1.3.1><DG1.3 MCH 30.5 pg 27.0-34.0 [facility] ([facility]) FASTING~.~.~<DG1.3.1>Z00.00</DG1.3.1><DG1.3.1>Z00.00</DG1.3.1><DG1.3.1>L65.9</DG 1.3.1><DG1.3 RDW 12.6 % 11.5-14.8 [facility] ([facility]) FASTING~.~.~<DG1.3.1>Z00.00</DG1.3.1><DG1.3.1>Z00.00</DG1.3.1><DG1.3.1>L65.9</DG 1.3.1><DG1.3 MPV 10.7 fL 7.4-10.4 Above high normal [facility] ([facility]) FASTING~.~.~<DG1.3.1>Z00.00</DG1.3.1><DG1.3.1>Z00.00</DG1.3.1><DG1.3.1>L65.9</DG 1.3.1><DG1.3 Platelets 156 10^3/uL 150-450 [facility] ([facility]) FASTING~.~.~<DG1.3.1>Z00.00</DG1.3.1><DG1.3.1>Z00.00</DG1.3.1><DG1.3.1>L65.9</DG 1.3.1><DG1.3 Neut 47.9 % 37.0-80.0 [facility] ([facility]) FASTING~.~.~<DG1.3.1>Z00.00</DG1.3.1><DG1.3.1>Z00.00</DG1.3.1><DG1.3.1>L65.9</DG 1.3.1><DG1.3 Lymph 37.1 % 25.0-40.0 [facility] ([facility]) FASTING~.~.~<DG1.3.1>Z00.00</DG1.3.1><DG1.3.1>Z00.00</DG1.3.1><DG1.3.1>L65.9</DG 1.3.1><DG1.3 [place] 8.7 % 3.0-8.0 Above high normal [facility] ([facility]) FASTING~.~.~<DG1.3.1>Z00.00</DG1.3.1><DG1.3.1>Z00.00</DG1.3.1><DG1.3.1>L65.9</DG 1.3.1><DG1.3 %Ig 0.9 % 0.0-0.0 Above high normal [facility] ([facility]) FASTING~.~.~<DG1.3.1>Z00.00</DG1.3.1><DG1.3.1>Z00.00</DG1.3.1><DG1.3.1>L65.9</DG 1.3.1><DG1.3 Baso 0.9 % 0.0-2.0 [facility] ([facility]) FASTING~.~.~<DG1.3.1>Z00.00</DG1.3.1><DG1.3.1>Z00.00</DG1.3.1><DG1.3.1>L65.9</DG 1.3.1><DG1.3 Eos 4.5 % 0.0-7.0 [facility] ([facility]) FASTING~.~.~<DG1.3.1>Z00.00</DG1.3.1><DG1.3.1>Z00.00</DG1.3.1><DG1.3.1>L65.9</DG 1.3.1><DG1.3 #Lymph 2.39 10^3/uL 0.60-3.40 [facility] ([facility]) FASTING~.~.~<DG1.3.1>Z00.00</DG1.3.1><DG1.3.1>Z00.00</DG1.3.1><DG1.3.1>L65.9</DG 1.3.1><DG1.3 %NRBC 0.0 % 0.0-0.0 [facility] ([facility]) FASTING~.~.~<DG1.3.1>Z00.00</DG1.3.1><DG1.3.1>Z00.00</DG1.3.1><DG1.3.1>L65.9</DG 1.3.1><DG1.3 #Neut 3.09 10^3/uL 2.00-6.90 [facility] ([facility]) FASTING~.~.~<DG1.3.1>Z00.00</DG1.3.1><DG1.3.1>Z00.00</DG1.3.1><DG1.3.1>L65.9</DG 1.3.1><DG1.3 #Eos 0.29 10^3/uL 0.00-0.70 [facility] ([facility]) FASTING~.~.~<DG1.3.1>Z00.00</DG1.3.1><DG1.3.1>Z00.00</DG1.3.1><DG1.3.1>L65.9</DG 1.3.1><DG1.3 #Baso 0.06 10^3/uL 0.00-0.20 [facility] ([facility]) FASTING~.~.~<DG1.3.1>Z00.00</DG1.3.1><DG1.3.1>Z00.00</DG1.3.1><DG1.3.1>L65.9</DG 1.3.1><DG1.3 #[place] 0.56 10^3/uL 0.00-0.90 [facility] ([facility]) FASTING~.~.~<DG1.3.1>Z00.00</DG1.3.1><DG1.3.1>Z00.00</DG1.3.1><DG1.3.1>L65.9</DG 1.3.1><DG1.3 #Ig 0.06 10^3/uL 0.00-0.10 [facility] ([facility]) FASTING~.~.~<DG1.3.1>Z00.00</DG1.3.1><DG1.3.1>Z00.00</DG1.3.1><DG1.3.1>L65.9</DG 1.3.1><DG1.3 #NRBC 0.00 10^3/uL 0.00-0.00 [facility] ([facility]) FASTING~.~.~<DG1.3.1>Z00.00</DG1.3.1><DG1.3.1>Z00.00</DG1.3.1><DG1.3.1>L65.9</DG 1.3.1><DG1.3 Manual [facility] FASTING~.~.~<DG1.3.1>Z00.00</DG1.3.1><DG1.3.1>Z00.00</DG1.3.1><DG1.3.1>L65.9</DG 1.3.1><DG1.3 RBC Morph [facility] FAST[facility]~.~.~<DG1.3.1>Z00.00</DG1.3.1><DG1.3.1>Z00.00</DG1.3.1><DG1.3.1>L65.9</DG 1.3.1><DG1.3 ID Date Data Source [id number] 04/24/2020 06:28:00 AM EDT [facility] Name Value Range Interpretation Code Description Data Sarah rce(s) Supporting Document(s) Nuclear Ab [Titer] in Serum by Immunofluorescence Positive A [facility] Negative <1:80 Borderline 1:80 Positive >1:80 Nuclear Ab Pattern Homogenous [Titer] in Serum 1:160 H [facility] Note: COMMENT [facility] A positive RADHA result may occur in healt hy individuals (lowtiter) or be associated with a variety of diseases. Seeinterpretation chart which is not all inclusive:Pattern Antigen Detected Suggested Disease Association Homogeneous DNA(ds,ss), SLE - High titers Nucleosomes, Histones Drug-induced SLE Speckled Sm, CLAIM TECHNICIAN, SCL-70, SLE,MCTD,PSS (diffuse form), SS-A/SS-B Sjogrens Nucleolar SCL-70, PM-1/SCL High titers Scleroderma, PM/DM Centromere Centromere PSS (limited form) w/Crest syndrome variable Nuclear Dot Sp100,[id number] Primary Biliary Cirrhosis Nuclear GP210, Primary Biliary CirrhosisMembrane massiel A,B,C ID Date Data Source [id number] 04/21/2020 08:24:00 PM EDT [facility] Value Range Interpretation Code Description Data Sarah rce(s) Supporting Document(s) Testosterone [Mass/volume] in Serum or Plasma 264 ng/dL 264-916 [facility] Adult male reference interval is based o n a population ofhealthy nonobese males (BMI <30) between 19 and 39 years old.Alan, et.al. JCEM 2017,102;8099-6636. PMID: 80692010. Testosterone Free [Mass/volume] in Serum or Plasma 7.2 pg/mL 8.7-25. 1 L [facility] ID Date Data Source [id number] 04/20/2020 10:45:00 AM EDT [facility] Value Range Interpretation Code Description Data Sarah rce(s) Supporting Document(s) Thyroxine (T4) free index in Serum or Plasma by calculation 1.31 NG/DL 0.93 - 1.70 [facility] ID Date Data Source [id number] 04/20/2020 10:45:00 AM EDT [facility] Value Range Interpretation Code Description Data Sarah rce(s) Supporting Document(s) Thyrotropin [Units/volume] in Serum or Plasma by Detec tion limit <= 0.05 mIU/L 0.64 uIU/mL 0.47 - 5.01 [facility] ID Date Data Source [id number] 04/20/2020 10:38:00 AM T [facility] Value Range Interpretation Code Description Data Sarah rce(s) Supporting Document(s) CVE PANEL [facility] LIPID PANEL Cholesterol [Mass/volume] in Serum or Plasma 154 MG/DL 131 - 200 [facility] Deprecated Triglyceride [Mass/volume] in Serum or Plasma 223 MG/DL 3 5 - 160 H [facility] HDL 31 MG[facility]DL [facility] Ch[facility] in LDL [Mass/volume] in Serum or Plasma by Direc t assay 89 mg/dL 65 - 175 [facility] Cholesterol.total/Cholesterol in HDL [Mass Ratio] in Serum o r Plasma 5.0 3.4 - 4.9 H [facility] LDL/HDL 2.87 1.00 - 3.55 [facility] CVE RISK CHOL/HDL LDL/HDLMEN: 1/2 AVERAGE 3.43 1.00 AVERAGE 4.97 3.55 2X AVERAGE 9.55 6.25 3X AVERAGE 23.99 7.99WOMEN: 1/2 AVERAGE 3.27 1.47 AVERAGE 4.44 3.22 2X AVERAGE 7.05 5.03 3X AVERAGE 11.04 6.14 ID Date Data Source [id number] 04/20/2020 10:38:00 AM EDT [facility] Name Value Range Interpretation Code Description Data Sarah rce(s) Supporting Document(s) C reactive protein [Mass/volume] in Serum or Plasma by High sensitivity method 4.45 MG/L 1.00 - 3.00 H [facility] CDC/S HS-CRP CUT-OFF: RELATIVE RISK: <1.0 mg/L Low 1.0 - 3.0 mg/L Average >3.0 mg/L High Optimally, the average of HS-CRP results repeated two weeks apart should be used for risk assessment. ID Date Data Source [id number] 04/20/2020 10:38:00 AM T [facility] Name Value Range Interpretation Code Description Data Sarah rce(s) Supporting Document(s) COMPREHENSIVE METABOLIC PANEL [facility] COMPREHENSIVE METABOLIC PANEL Sodium [Moles/volume] in Serum or Plasma 139 mEq/L 134 - 153 [facility] Potassium [Moles/volume] in Serum or Plasma 4.4 mEq/L 3.6 - 5.0 [facility] Chloride [Moles/volume] in Serum or Plasma 103 mEq/L 98 - 107 [facility] Carbon dioxide, total [Moles/volume] in Serum or Plasma 26 MEQ/L 22 - 30 [facility] Glucose [Mass/volume] in Serum or Plasma 107 MG/DL 65 - 110 [facility] BUN 11 MG/DL 7 - 21 [facility] Creatinine [Mass/volume] in Serum or Plasma 0.9 MG/DL 0.7 - 1.5 [facility] BUN/CREAT 12 8 - 27 [facility] Protein [Mass/volume] in Serum or Plasma 7.1 G/DL 6.3 - 8.2 [facility] Albumin [Mass/volume] in Serum or Plasma 4.7 G/DL 3.9 - 5.0 [facility] Globulin [Mass/volume] in Serum by calculation 2.4 GM/DL 2.4 - 3.2 [facility] A/G RATIO 2.0 0.8 - 2.0 [facility] Calcium [Mass/volume] in Serum or Plasma 9.2 MG/DL 8.4 - 10.2 [facility] Bilirubin.total [Mass/volume] in Serum or Plasma 0.7 MG/DL 0.2 - 1.3 [facility] Alkaline phosphatase [Enzymatic activity/volume] in Serum or Plasma 91 U/L 38 - 126 [facility] Aspartate aminotransferase [Enzymatic activity/volume] in Serum or Plasma 31 U/L 5 - 40 [facility] Alanine aminotransferase [Enzymatic activity/volume] in Seru m or Plasma 55 U/L 7 - 56 [facility] Anion gap 3 in Serum or Plasma 10.0 mmol/L 8.0 - 16.0 [facility] AGE 35 yrs [facility] NON-AA GFR >60 mL/min [facility] ital AFR AMER GFR >60 mL/min [facility] Male GFR In terprentation 20-49 yrs >60 mL/min Normal 50-59 yrs >56 mL/min Normal 60-69 yrs >49 mL/min Normal 70-79yrs >42 mL/min Normal 80 and above >35 mL/min Normal Female GFR Interpretation 20-39 yrs >60 mL/min Normal 40-49 yrs >58 mL/min Normal 50-59 yrs >51 mL/min Normal 60-69 yrs >45 mL/min Normal 70-79 yrs >39 mL/min Normal 80 and above >32 mL/min Normal ID Date Data Source [id number] 04/20/2020 10:20:00 AM EDT [facility] Name Value Range Interpretation Code Description Data Sarah rce(s) Supporting Document(s) Erythrocyte sedimentation rate by Westergren method 4 mm/hr 0 - 15 [facility] SED RATE REENTER 4 [facility] ID Date Data Source [id number] 04/20/2020 10:12:00 AM EDT [facility] Name Value Range Interpretation Code Description Data Sarah rce(s) Supporting Document(s) Hemoglobin A1c/Hemoglobin.total in Blood 5.6 % 4.4 - 6.1 [facility] {A1]{HB] ID Date Data Source [id number] 04/20/2020 10:02:00 AM EDT [facility] Name Value Range Interpretation Code Description Data Sarah rce(s) Supporting Document(s) CBC W/AUTOMATED DIFF [facility] COMPLETE BLOOD COUNT Leukocytes [#/volume] in Blood by Automated count 6.5 10^3/uL 4.2 - 1 1.0 [facility] Erythrocytes [#/volume] in Blood by Automated count 5.01 10^6/uL 4. 50 - 6.30 [facility] Hemoglobin [Mass/volume] in Blood 15.3 g/dL 14.0 - 16.0 [facility] Hematocrit [Volume Fraction] of Blood by Automated count 43.9 % 4 1.0 - 51.0 [facility] Erythrocyte mean corpuscular volume [Entitic volume] by Auto mated count 87.6 fL 80.0 - 94.0 [facility] Erythrocyte mean corpuscular hemoglobin [Entitic mass] by Automated count 30.5 pg 27.0 - 34.0 [facility] Erythrocyte mean corpuscular hemoglobin concentration [Mass/volume] by Automated count 34.9 g/dL 31.0 - 36.0 [facility] Erythrocyte distribution width [Ratio] by Automated count 12.6 % 11.5 - 14.8 [facility] Platelets [#/volume] in Blood by Automated count 156 10^3/uL 150 - 45 0 [facility] Platelet mean volume [Entitic volume] in Blood by Automated count 10.7 fL 7.4 - 10.4 H [facility] Neutrophils/100 leukocytes in Blood by Automated count 47.9 % 37. 0 - 80.0 [facility] Lymphocytes/100 leukocytes in Blood by Manual count 37.1 % 25.0 - 40.0 [facility] Monocytes/100 leukocytes in Blood by Automated count 8.7 % 3.0 - 8.0 H [facility] Eosinophils/100 leukocytes in Blood by Automated count 4.5 % 0.0 - 7.0 [facility] Basophils/100 leukocytes in Blood by Automated count 0.9 % 0.0 - 2.0 [facility] %IG 0.9 % 0.0 - 0.0 H [facility] %NRBC 0.0 % 0.0 - 0.[facility] Neutrophils [#/volume] in Blood by Automated count 3.09 10^3/uL 2.00 - 6.90 [facility] Lymphocytes [#/volume] in Blood by Automated count 2.39 10^3/uL 0.60 - 3.40 [facility] Monocytes [#/volume] in Blood by Automated count 0.56 10^3/uL 0.00 - 0.90 [facility] Eosinophils [#/volume] in Blood by Automated count 0.29 10^3/uL 0.00 - 0.70 [facility] Basophils [#/volume] in Blood by Automated count 0.06 10^3/uL 0.00 - 0.20 [facility] #IG 0.06 10^3/uL 0.00 - 0.10 [facility] #NRBC 0.00 10^3/uL 0.00 - 0.00 [facility] MANUAL DIFF NOT INDICATED [facility] RBC MORPH NOT INDICATED [facility] ID Date Data Source [id number] 04/20/2020 10:01:00 AM EDT [facility] Name Value Range Interpretation Code Description Data Sarah rce(s) Supporting Document(s) URINALYSIS [facility] [place] URINALYSIS SOURCE R [facility] COLOR yellow NORMAL: Yellow [facility] CLARITY clear NORMAL: Clear [facility] Specific gravity of Urine by Test strip 1.015 1.001 - 1.030 [facility] pH 6 5 - 9 [facility] al Glucose [Mass/volume] in Urine by Test strip NORM NORMAL: Negat [facility] Bilirubin.total [Presence] in Urine by Test strip NEG NORMAL: Negative [facility] Ketones [Presence] in Urine by Test strip NEG NORMAL: Negative [facility] Protein [Mass/volume] in Urine by Test strip NEG NORMAL: Negat [facility] Nitrite [Presence] in Urine by Test strip NEG NORMAL: Negative [facility] BLOOD NEG NORMAL: Negative [facility] Leukocyte esterase [Presence] in Urine by Test strip NEG CHIKA L: Negative [facility] Urobilinogen [Mass/volume] in Urine by Test strip 1 less jennifer n 1.0 mg/dL [facility] MICROSCOPIC Not Indicate [facility] ID Date Data Source [id number] 04/20/2020 09:46:00 AM EDT [facility] ([facility]) Name Value Range Interpretation Code Description Data Sarah rce(s) Supporting Document(s) Laboratory test finding (navigational concept) Laboratory test r esult Above high normal [facility] ([facility]) FASTING~.~.~<DG1.3.1>Z00.00</DG1.3.1><DG1.3.1>Z00.00</DG1.3.1><DG1.3.1>L65.9</DG 1.3.1><DG1.3 Laboratory test finding (navigational concept) Laboratory test r esult Abnormal (applies to non-numeric results) [facility] ([facility]) FASTING~.~.~<DG1.3.1>Z00.00</DG1.3.1><DG1.3.1>Z00.00</DG1.3.1><DG1.3.1>L65.9</DG 1.3.1><DG1.3 Note: Laboratory test result [facility] ([facility]) FASTING~.~.~<DG1.3.1>Z00.00</DG1.3.1><DG1.3.1>Z00.00</DG1.3.1><DG1.3.1>L65.9</DG 1.3.1><DG1.3 ID Date Data Source [id number] 04/20/2020 09:46:00 AM EDT [facility] ([facility]) Name Value Range Interpretation Code Description Data Sarah rce(s) Supporting Document(s) Source Laboratory test result [facility] ([facility]) FASTING~.~.~<DG1.3.1>Z00.00</DG1.3.1><DG1.3.1>Z00.00</DG1.3.1><DG1.3.1>L65.9</DG 1.3.1><DG1.3 Urinalysis Laboratory test result [facility] ([facility]) FASTING~.~.~<DG1.3.1>Z00.00</DG1.3.1><DG1.3.1>Z00.00</DG1.3.1><DG1.3.1>L65.9</DG 1.3.1><DG1.3 Clarity Laboratory test result [facility] ([facility]) FASTING~.~.~<DG1.3.1>Z00.00</DG1.3.1><DG1.3.1>Z00.00</DG1.3.1><DG1.3.1>L65.9</DG 1.3.1><DG1.3 Color Laboratory test result [facility] ([facility]) FASTING~.~.~<DG1.3.1>Z00.00</DG1.3.1><DG1.3.1>Z00.00</DG1.3.1><DG1.3.1>L65.9</DG 1.3.1><DG1.3 Spec [place] 1.015 1.001-1.030 [facility] ([facility]) FASTING~.~.~<DG1.3.1>Z00.00</DG1.3.1><DG1.3.1>Z00.00</DG1.3.1><DG1.3.1>L65.9</DG 1.3.1><DG1.3 Glucose Laboratory test result [facility] ([facility]) FASTING~.~.~<DG1.3.1>Z00.00</DG1.3.1><DG1.3.1>Z00.00</DG1.3.1><DG1.3.1>L65.9</DG 1.3.1><DG1.3 pH 6 5-9 [facility] ([facility]) FASTING~.~.~<DG1.3.1>Z00.00</DG1.3.1><DG1.3.1>Z00.00</DG1.3.1><DG1.3.1>L65.9</DG 1.3.1><DG1.3 Bilirubin Laboratory test result [facility] ([facility]) FASTING~.~.~<DG1.3.1>Z00.00</DG1.3.1><DG1.3.1>Z00.00</DG1.3.1><DG1.3.1>L65.9</DG 1.3.1><DG1.3 Ketone Laboratory test result [facility] ([facility]) FASTING~.~.~<DG1.3.1>Z00.00</DG1.3.1><DG1.3.1>Z00.00</DG1.3.1><DG1.3.1>L65.9</DG 1.3.1><DG1.3 [facility]rite [facility]ST[facility]~.~.~<DG1.3.1>Z00.00</DG1.3.1><DG1.3.1>Z00.00</DG1.3.1><DG1.3.1>L65.9</DG 1.3.1><DG1.3 Protein Laboratory test result [facility] ([facility]) FASTING~.~.~<DG1.3.1>Z00.00</DG1.3.1><DG1.3.1>Z00.00</DG1.3.1><DG1.3.1>L65.9</DG 1.3.1><DG1.3 Leuk Est [facility] FAST[facility]~.~.~<DG1.3.1>Z00.00</DG1.3.1><DG1.3.1>Z00.00</DG1.3.1><DG1.3.1>L65.9</DG 1.3.1><DG1.3 Blood Laboratory test result [facility] ([facility]) FASTING~.~.~<DG1.3.1>Z00.00</DG1.3.1><DG1.3.1>Z00.00</DG1.3.1><DG1.3.1>L65.9</DG 1.3.1><DG1.3 [facility]ilinogen [address] [facility] FAST[facility]~.~.~<DG1.3.1>Z00.00</DG1.3.1><DG1.3.1>Z00.00</DG1.3.1><DG1.3.1>L65.9</DG 1.3.1><DG1.3 Microscopic [facility] FASTING~.~.~<DG1.3.1>Z00.00</DG1.3.1><DG1.3.1>Z00.00</DG1.3.1><DG1.3.1>L65.9</DG 1.3.1><DG1.3 ID Date Data Source [id number] 09/19/2019 04:02:00 PM EDT [facility] DATE OF EXAM: 09/19/2019CT ABDOMEN AND P RED WITH IV CONTRAST INDICATION: Unspecified abdominal pain s/p hernia repair , pain and bulge above umbilicus areaCOMPARISON: None.IV CONTRAST: 100 mL Omnipaque [address] scanning was performed with sagittal and coronal reformatted images reconstructed from the axial data. One or more of the following dose reduction techniques were utilized in effectively lowering the radiation dose for this examination: Automated Exposure Control, Adjustment of the mA and/or kV according to patient size, or Iterative reconstruction. FINDINGS: LUNG BASES: No pulmonary nodules or masses. No pleural effusions. LIVER: Normal. The gallbladder has been removed. SPLEEN: Normal. PANCREAS: Normal. ADRENALS: Normal bilaterally. KIDNEYS/: A 3 mm nonobstructing calculus is seen in the mid right kidney. A 4 mm nonobstructing calculus is seen in the mid left kidney. The ureters are unremarkable. The urinary bladder is unremarkable. BOWEL/GI: No bowel obstruction. No appendicitis or diverticulitis. NODES/RETROPERITONEUM: No adenopathy. The aorta is unremarkable. SKELETAL: Within normal limits. A small abdominal wall defect is seen in the anterior upper abdomen to the right of the midline at the level of the lower margin of the liver. The defect measures approximately 1.5 cm in diameter and a small amount of peritoneal fat is seen extending through the defect. IMPRESSION: Small upper anterior abdominal wall defect measuring approximately 1.5 cm in diameter with extension of a very small amount of peritoneal fat through the defect. There are tiny nonobstructing bilateral renal calculi with no evidence of hydronephrosis. Professional interpretation performed by [facility] [place] End of diagnostic report for accession: [id number] Interpreted: Tristan Headley MDTranscribed: 09/19/2019 03:57 PMSigned: 09/19/2019 04:02 PM Tristan Headley MD [facility] # [id number] BILL # [id number] [facility] Name Value Range Interpretation Code Description Data Sarah rce(s) Supporting Document(s) Procedure Social History Code Duration Value Status Description Data Source(s ) Smoking 07/16/2020 12:00:00 AM EST Current Smoker completed Curre nt Smoker eCW1 ([facility]) Smoking 07/16/2020 12:00:00 AM EST Current Smoker completed Curre nt Smoker eCW1 ([facility]) Smoking 06/22/2020 12:00:00 AM EST Current Smoker completed Curre nt Smoker eCW1 ([facility]) Smoking 06/22/2020 12:00:00 AM EST Current Smoker completed Curre nt Smoker eCW1 ([facility]) Vital Signs ID Date Data Source UNK Name Value Range Interpretation Code Description Data Source(s) Diastolic blood pressure 80 mm[Hg] 80 mm[Hg] eCW1 ([facility]) Systolic blood pressure 132 mm[Hg] 132 mm[Hg] e CW1 ([facility]) Body temperature 98.4 [degF] 98.4 [degF] eCW1 ( [facility]) Respiratory rate 18 /min 18 /min eCW1 ([facility]) Heart rate 95 /min 95 /min eCW1 ([facility]) Body mass index (BMI) [Ratio] 36.32 kg/m2 36.32 kg/m2 [facility] ([facility]) Body height 72 [in_i] 72 [in_i] eCW1 ([facility]) Body weight 121.5 kg 121.5 kg W1 ([facility]) Body weight 267.8 [lb_av] 267.8 [lb_av] eCW1 ([facility]) Diastolic blood pressure 70 mm[Hg] 70 mm[Hg] eCW1 ([facility]) Systolic blood pressure 132 mm[Hg] 132 mm[Hg] e CW1 ([facility]) Body temperature 97.8 [degF] 97.8 [degF] eCW1 ( [facility]) Respiratory rate 18 /min 18 /min eCW1 ([facility]) Heart rate 91 /min 91 /min eCW1 ([facility]) Body mass index (BMI) [Ratio] 36.72 kg/m2 36.72 kg/m2 eCW1 ([facility]) Body height 72 [in_i] 72 [in_i] eCW1 ([facility]) Body weight 122.8 kg 122.8 kg eCW1 ([facility]) Body weight 270.8 [lb_av] 270.8 [lb_av] eCW1 ([facility]) Oxygen saturation in Arterial blood by Pulse oximetry 99 % 99 % MEDENT ([facility]) Respiratory rate 16 /min 16 /min MEDENT ( [facility]) Body temperature 97.6 [degF] 97.6 [degF] MEDENT ([facility]) Heart rate 79 /min 79 /min MEDENT ([facility]) Diastolic blood pressure 80 mm[Hg] 80 mm[Hg] MEDENT ([facility]) Systolic blood pressure 140 mm[Hg] 140 mm[Hg] EDENT ([facility]) Body surface area [facility] from [facility] 2[facility]40 [facility] Body mass index (BMI) [Ratio] 35.8 kg/m2 35.8 k g/m2 MED[facility] ([facility]) Body height 72 [in_i] 72 [in_i] MEDENT ([facility]) 6'0" Body weight 119.750 kg 119.750 kg MEDENT ([facility]) Body weight 264.00 [lb_av] 264.00 [lb_av] MEDEN T ([facility]) Oxygen saturation in Arterial blood by Pulse oximetry 98 % 98 % [facility] ([facility]) Respiratory rate 16 /min 16 /min MEDENT ( [facility]) Body temperature 98.0 [degF] 98.0 [degF] MEDENT ([facility]) Heart rate 80 /min 80 /min MEDENT ([facility]) Diastolic blood pressure 88 mm[Hg] 88 mm[Hg] MEDENT ([facility]) Systolic blood pressure 146 mm[Hg] 146 mm[Hg] M EDENT ([facility]) Diastolic blood pressure 88 mm[Hg] 88 mm[Hg] [facility] ([facility]) Systolic blood pressure 150 mm[Hg] 150 mm[Hg] [facility] ([facility]) Body weight 121.565 kg 121.565 kg [facility] ([facility]) [place] body weight 178 [lb_av] 178 [lb_av] MEDEN T ([facility]) Body mass index (BMI) [Ratio] 36.3 kg/m2 36.3 k g/m2 [facility] ([facility]) Body weight 268.00 [lb_av] 268.00 [lb_av] MEDEN T ([facility]) Body height 72 [in_i] 72 [in_i] [facility] ([facility]) 6'0" Diastolic blood pressure 82 mm[Hg] 82 mm[Hg] [facility] H[facility]PITAL ([facility]) Systolic blood pressure 158 mm[Hg] 158 mm[Hg] [facility] ([facility]) Body surface area Derived from formula 2.40 m2 2.40 m2 [facility] ([facility]) Body mass index (BMI) [Ratio] 35.9 kg/m2 35.9 k g/m2 [facility] ([facility]) Body height 72 [in_i] 72 [in_i] [facility] ([facility]) 6'0" Body weight 120.204 kg 120.204 kg [facility] ([facility]) Body weight 265.00 [lb_av] 265.00 [lb_av] [facility] Oxygen saturation in Arterial blood by Pulse oximetry 98 % 98 % [facility] ([facility]) Respiratory rate 18 /min 18 /min [facility] ( [facility]) Body temperature 97.7 [degF] 97.7 [degF] [facility] ([facility]) Heart rate 80 /min 80 /min [facility] ([facility]) Diastolic blood pressure 70 mm[Hg] 70 mm[Hg] [facility] ([facility]) Systolic blood pressure 140 mm[Hg] 140 mm[Hg] [facility] ([facility]) Body temperature 37.1 Bee 37.1 Bee MEDENT ( [facility]) Body temperature 98.7 [degF] 98.7 [degF] [facility] ([facility]) Heart rate 60 /min 60 /min [facility] ([facility]) Diastolic blood pressure 80 mm[Hg] 80 mm[Hg] [facility] ([facility]) Systolic blood pressure 132 mm[Hg] 132 mm[Hg] M EDENT ([facility]) Body mass index (BMI) [Ratio] 36.6 kg/m2 36.6 k g/m2 [facility] ([facility]) Body weight 270.00 [lb_av] 270.00 [lb_av] MEDEN T ([facility]) Body height 72.00 [in_i] 72.00 [in_i] [facility] ([facility]) 6'0" Body weight 262 [lb_av] 262 [lb_av] YLNNE ([facility] ) Systolic blood pressure 145 mm[Hg] 145 mm[Hg] A NATALIYA ([facility] ) Body mass index (BMI) [Ratio] 35.5 kg/m2 35.5 k g/m2 LYNNE ([facility] ) Body height 72 [in_i] 72 [in_i] LYNNE ([facility] ) Diastolic blood pressure 101 mm[Hg] 101 mm[Hg] LYNNE ([facility] ) Body weight 265 [lb_av] 265 [lb_av] LYNNE ([facility] ) Systolic blood pressure 143 mm[Hg] 143 mm[Hg] A THENChucky ([facility] ) Body mass index (BMI) [Ratio] 35.9 kg/m2 35.9 k g/m2 LYNNE ([facility] ) Body height 72 [in_i] 72 [in_i] LYNNE ([facility] ) Diastolic blood pressure 90 mm[Hg] 90 mm[Hg] YLNNE ([facility] ) Body weight 265 [lb_av] 265 [lb_av] LYNNE ([facility] ) Systolic blood pressure 143 mm[Hg] 143 mm[Hg] A THENA ([facility]) Body mass index (BMI) [Ratio] 35.9 kg/m2 35.9 k g/m2 LYNNE ([facility]) Body height 72 [in_i] 72 [in_i] LYNNE ([facility]) Diastolic blood pressure 90 mm[Hg] 90 mm[Hg] LYNNE ([facility]) Body weight 262 [lb_av] 262 [lb_av] LYNNE ([facility]) Systolic blood pressure 152 mm[Hg] 152 mm[Hg] A THENA ([facility]) Body mass index (BMI) [Ratio] 35.5 kg/m2 35.5 k g/m2 LYNNE ([facility]) Body height 72 [in_i] 72 [in_i] LYNEN ([facility]) Diastolic blood pressure 86 mm[Hg] 86 mm[Hg] LYNNE ([facility]) Body weight 262 [lb_av] 262 [lb_av] LYNNE ([facility]) Systolic blood pressure 152 mm[Hg] 152 mm[Hg] A THENA ([facility]) Body mass index (BMI) [Ratio] 35.5 kg/m2 35.5 k g/m2 LYNNE ([facility]) Body height 72 [in_i] 72 [in_i] LYNNE ([facility]) Diastolic blood pressure 86 mm[Hg] 86 mm[Hg] LYNNE ([facility]) Body weight 262 [lb_av] 262 [lb_av] LYNNE ([facility]) Systolic blood pressure 152 mm[Hg] 152 mm[Hg] A THENA ([facility]) Body mass index (BMI) [Ratio] 35.5 kg/m2 35.5 k g/m2 LYNNE ([facility]) Body height 72 [in_i] 72 [in_i] LYNNE ([facility]) Diastolic blood pressure 86 mm[Hg] 86 mm[Hg] LYNNE ([facility]) Patient Treatment Plan of Care Planned Activity Planned Date Details Description Data Source (s) CarpalAid Large - 07/22/2020 12:00:00 AM EST eCW1 ([facility]) CarpalAid Large - 07/22/2020 12:00:00 AM EST eCW1 ([facility]) Ergocalciferol [id number] UNT Oral Capsule 07/17/2020 12:00:00 AM EST [facility] Ergocalciferol 50 MCG (1999 UT) 07/16/2020 12:00:00 AM EST eCW1 ([facility]) Ergocalciferol 50 MCG (1999 [place]) 07/16/2020 12:00:00 AM EST eCW1 ([facility]) Ergocalciferol 60017 UNT Oral Capsule 07/05/2020 12:00:00 AM EST eCW1 ([facility]) Folic Acid 1 MG Oral Tablet 06/22/2020 12:00:00 AM EST [facility] Folic Acid 1 MG Oral Tablet 06/22/2020 12:00:00 AM EST eCW1 ([facility]) Folic Acid 1 MG Oral Tablet 06/22/2020 12:00:00 AM EST eCW1 ([facility]) Lisinopril 10 MG Oral Tablet 06/20/2020 12:00:00 AM EST [facility] Acetaminophen 325 MG / Hydrocodone Bitartrate 5 MG Oral Tablet [Nor co] LYNNE ([facility]) Acetaminophen 325 MG / Hydrocodone Bitartrate 5 MG Oral Tablet [Nor co] LYNNE ([facility]) Acetaminophen 325 MG / Hydrocodone Bitartrate 5 MG Oral Tablet [Nor co] LYNNE ([facility])
[2020-08-28] MEDS ORDERED: BUPIVACAINE HCL 0.25% 30ML VIAL As Ordered ONE (07:15)
[2020-08-28] MEDS ORDERED: fentaNYL 250 MCG/5 ML INJECTION (J3010) As Ordered ONE (08:01)
[2020-08-28] MEDS ORDERED: ALBUTEROL 6.7GM INHALER **FOR ANES. CART/OMNICELL ONLY As Ordered ONE (08:01)
[2020-08-28] MEDS ORDERED: MIDAZOLAM INJ 2MG/2ML VIAL (J2250 PER 1MG) As Ordered ONE (08:01)
[2020-08-28] MEDS ORDERED: propofoL 200 MG/20 ML VIAL As Ordered ONE (08:01)
[2020-08-28] MEDS ORDERED: dexameTHASONE 4 MG/ML 1ML VIAL (J1100 PER 1MG) As Ordered ONE (08:01)
[2020-08-28] MEDS ORDERED: SUGAMMADEX SODIUM 500 MG/5 ML VIAL (BRIDION) As Ordered ONE (08:01)
[2020-08-28] MEDS ORDERED: METOCLOPRAMIDE INJ 10MG/2ML VIAL (J2765 PER 1) As Ordered ONE (08:01)
[2020-08-28] MEDS ORDERED: SEVOFLURANE INHAL SOLN 250 ML BTL As Ordered ONE (08:01)
[2020-08-28] MEDS ORDERED: LIDOCAINE 2% 100MG/5ML SDV (FOR ANES.) As Ordered ONE (08:01)
[2020-08-28] MEDS ORDERED: ROCURONIUM BROMIDE 50 MG/5 ML VIAL As Ordered ONE (08:01)
[2020-08-28] MEDS ORDERED: ONDANSETRON 4MG/2ML VIAL As Ordered ONE (08:01)
[2020-08-28] MEDS ORDERED: KETOROLAC 60MG 2ML VIAL As Ordered ONE (08:12)
[2020-08-28] MEDS ORDERED: ACETAMINOPHEN 1000MG 100ML IV BTL (OFIRMEV) (J0131 PER 10MG) As Ordered ONE (08:26)
--- NOTE | 2020-08-28 11:03 | RO ---
OPERATIVE NOTE DATE OF OPERATION: 08/28/2020 PREOPERATIVE DIAGNOSIS: Epigastric incisional hernia. POSTOPERATIVE DIAGNOSIS: Epigastric incisional hernia with adhesions. PROCEDURE PERFORMED: Robotic-assisted laparoscopic repair of epigastric incisional hernia with mesh and lysis of adhesions. The mesh utilized was a Covidien Parietex 12 cm round patch. This was Reference Code [id number] and Lot #[id number]. SURGEON: Phil Peraza M.D. PLANT PROTECTION OFFICER: CIARRA Figueroa. Azul's assistance was necessary for management of the robotic equipment with docking and undocking of arms, insertion of mesh and needles, and closure of the incisions. ANESTHESIA: General. INDICATIONS FOR PROCEDURE: The patient is a 35-year-old man who had undergone repair of a small umbilical hernia about five years ago. He subsequently had a laparoscopic cholecystectomy and then also a laparoscopic Luis fundoplication. He developed a hernia in the upper abdomen and required a laparoscopic repair of this hernia with mesh in [place] about two years ago. He has now developed another hernia through a trocar site in the right upper quadrant. He is now for a robotic-assisted repair of this hernia with mesh. DESCRIPTION OF PROCEDURE: The patient was brought to the operating room and placed on the table in a supine position. He was placed under general endotracheal anesthesia. The patient's abdomen was prepped and draped in a sterile fashion. A 0.25% Marcaine was infiltrated at each of the trocar sites as needed. A short incision was made in the left upper quadrant just below the costal margin. A Veress needle was inserted and after a positive hanging drop test, the abdomen was inflated with carbon dioxide gas. An 8-mm robotic port was then advanced through the abdominal wall without difficulty. Initial examination showed no evidence of trocar injury. There were some adhesions of the omentum to the anterior abdominal wall along the midline and in the epigastrium. A second trocar was placed approximately 10 cm below and to the right of the first and a third trocar was placed just to the left of the midline at about the level of the umbilicus. The patient was tilted to a slight Trendelenburg position. He was then rolled slightly to the left as well. The patient cart of the [employer] XI robot was brought into position. The endoscope arm was docked to the middle trocar. The endoscope was inserted and targeting took place in the right upper quadrant. A fenestrated bipolar and cauterizing scissor were then inserted and I moved to the control console to proceed. I initially took down the adhesions that were along the midline and in the way of seeing the area of his current hernia. I identified a small piece of mesh at the umbilicus and there was a much larger piece of mesh in the upper abdomen in the area of the midline and lower portion of the right upper quadrant. The adhesions were taken down adequately, but I did not attempt to take down the adhesions to the right of the midline that did not interfere with the current procedure. Some omentum was identified adherent up into a hernia defect. This appeared to be in the general vicinity of where his falciform ligament had been. The omentum was reduced into the abdomen. A partial peritoneal flap was created beginning at the left side of the hernia defect and working toward the midline where there was some intact peritoneum and preperitoneal fat. To the right, there was scarring from his prior mesh placement and other trocar sites and it was not possible to raise a piece of peritoneum in this area. The hernia defect was approximately 2.5 x 4 cm and oriented obliquely. The pressure in the abdomen was reduced to 10 mmHg and the defect was closed with a running suture of 1-0 STRATAFIX. This gave a nice closure and did not appear to be under significant tension. I selected a 12 cm Parietex patch. This was inserted into the abdomen and was placed on the anterior abdominal wall with the nonadherent side facing the abdomen. A 2-0 absorbable V-Loc suture was begun at the center of the mesh and then carried inferiorly to affix the mesh to the anterior abdominal wall. The suture was then carried around the periphery of the mesh. Additional sutures were placed to complete a transverse application of the mesh to the anterior abdominal wall and also suture the entire periphery of the mesh to the underlying fascia. A final suture was used to close the incomplete peritoneal flap over the medial aspect of the mesh. Laterally, the mesh appeared to overlap the previously placed mesh in this area. Final inspection showed no evidence of any bleeding. All sutures and instruments were removed. Azul Cervantes then undocked the robot, deflated the abdomen, and removed the trocars. She closed the skin incisions with buried 4-0 Vicryl and Steri-Strips. Light dressings were applied. The patient was awakened in the operating room, extubated, and moved to the recovery room in stable condition.
[2020-08-28 13:00] VITALS: BP 141/66
== END 2020-08-28 13:12 | disposition home or self-care (01) ==
LOC: M SDC 06:32
PROVIDERS: ATTEND Surgery
DX: K43.2 Incisional hernia without obstruction or gangrene (principal); I10 Essential (primary) hypertension; Z91.030 Bee allergy status; F17.290 Nicotine dependence, other tobacco product, uncomplicated; Z79.899 Other long term (current) drug therapy
CPT/HCPCS: 49654; C1781; J0131; J1100; J1885; J2250; J2405; J2765; J3010; S2900

== ENCOUNTER → 2020-11-17 | Outpatient (CLI) | payer OTHER ==
--- NOTE | 2020-11-19 17:04 | SLEEPCENT ---
NOCTURNAL POLYSOMNOGRAPHY DATE: 11/17/2020 ORDERED BY: LAKESHIA Neal Nocturnal polysomnography was performed for the titration of pressure therapy in this patient with a clinical diagnosis of obstructive sleep apnea syndrome, confirmed by home testing, revealing a respiratory event index of 13.8. For testing a ResMed AirFit F20 full face mask of medium size was used, 4 cm of water pressure were applied to the circuit, and the lights were extinguished. 7 hours and 8 minutes of data were reviewed. There were 349.5 minutes of sleep identified. Sleep latency was prolonged at 17.5 minutes. REM latency was short at 49 minutes. Sleep architecture was good with four REM cycles. Overall sleep efficiency was 83.4%. The electrocardiogram showed a sinus rhythm with an average heart rate of 75 beats per minute. EEG showed normal waveforms for wake and sleep. Respiratory events were fully palliated with CPAP at a pressure of 7 and remaining measures of sleep physiology were normal. IMPRESSION: Obstructive sleep apnea syndrome (G47.33). RECOMMENDATION: Nightly use of pressure therapy 7 cm of water. Veronica Pichardo M.D.
== END ==
LOC: M SLEEP 20:00
PROVIDERS: ATTEND Physician Assistant
DX: G47.33 Obstructive sleep apnea (adult) (pediatric) (principal)

== ENCOUNTER 2021-03-08 13:57 | Emergency (ER) | payer OTHER ==
[~2021-03-08] VITALS: Ht 180.3 cm; Wt 121.1 kg
[~2021-03-08 13:57] MED LIST changes: -CLIN150C15 PO; +CLIN150C17 PO; +ERGO500029 PO; -VITA50005 PO
[2021-03-08] MEDS ORDERED: MORPHINE 2 MG/ML 1ML VIAL (J2270) IV ONE (18:15)
[2021-03-08] MEDS ORDERED: ONDANSETRON 4MG/2ML VIAL IV ONE (18:15)
[2021-03-08 18:33] LABS: BASO # 0.1 10^3/uL (0.0-0.2); BASO % 0.5 % (0.0-1.0); EOS # 0.2 10^3/uL (0.0-0.5); EOS % 1.3 % (0.0-3.0); HEMOGLOBIN 16.5 g/dl (13.5-17.5); LYMPH % 15.5 % (24.0-44.0); MEAN CORPUSCULAR HEMOGLOBIN 31.2 pg (27.0-33.0); MEAN CORPUSCULAR HGB CONC 34.4 g/dl (32.0-36.5); MEAN CORPUSCULAR VOLUME 90.7 fl (80.0-96.0); MONO # 0.9 10^3/uL (0.0-0.8); MONO % 6.9 % (2.0-8.0); NEUTROPHILS # 9.5 10^3/uL (1.5-8.5); NEUTROPHILS % 75.2 % (36.0-66.0); PLATELET COUNT, AUTOMATED 172 10^3/uL (150-450); RED BLOOD COUNT 5.29 10^6/uL (4.30-6.10); WHITE BLOOD COUNT 12.7 10^3/uL (4.0-10.0)
[2021-03-08 19:26] LABS: ERYTHROCYTE SEDIMENTATION RATE 7 mm/hr (0-15)
[2021-03-08] MEDS ORDERED: KETOROLAC 30 MG/ML 1ML VIAL IV ONE (20:05)
[2021-03-08] MEDS ORDERED: methylPREDNISolone 125MG 2ML VIAL IV ONE (21:55)
[2021-03-08] MEDS ORDERED: IMIPENEM/CILASTATIN 500 MG in D5W MINI-BAG PLUS 100 ML IV ONE (22:00)
[2021-03-08] MEDS ORDERED: CIPR-249 PO (22:34)
[2021-03-08] MEDS ORDERED: PRED20TA PO (22:34)
[2021-03-08] MEDS ORDERED: CIPRHCOTIC AD (22:34)
[2021-03-08] MEDS ORDERED: CIPRODEX OTIC SUSP 7.5ML AD STA (22:38)
[2021-03-09 00:11] VITALS: BP 137/77
--- NOTE | 2021-03-11 10:16 | REP ---
INDICATION: Closure of auditory canal, mastoid tenderness, swelling of e. COMPARISON: None. TECHNIQUE: CT maxillofacial bones performed. Sagittal and coronal reconstruction images are performed. FINDINGS: The visualized osseous structures are intact with no evidence of acute fracture. The orbital floors appear intact. The mandible and zygomatic arches appear intact. The nasal bones appear intact. The paranasal sinuses are clear. The globes appear intact. There is mild opacification of right mastoid air cells. There is no associated osseous destruction. The soft tissue of the right external auditory canal is thickened with effacement of the canal. There is thickening of the right tympanic membrane. There is a small amount of fluid in the right middle ear cavity. A few subcentimeter right periauricular lymph nodes are present. IMPRESSION: Findings consistent with right otitis externa, otitis media and mastoiditis. A preliminary report was provided by [facility] Radiology at the time of the exam. <Electronically signed by Denver Segura > 03/11/21 [id number]
== END 2021-03-09 00:13 | disposition home or self-care (01) ==
LOC: M ED 13:57
DX: H60.91 Unspecified otitis externa, right ear (principal); H66.91 Otitis media, unspecified, right ear; H70.001 Acute mastoiditis without complications, right ear; I10 Essential (primary) hypertension; J45.909 Unspecified asthma, uncomplicated; K21.9 Gastro-esophageal reflux disease without esophagitis; F17.290 Nicotine dependence, other tobacco product, uncomplicated; Z79.899 Other long term (current) drug therapy; Z91.030 Bee allergy status
CPT/HCPCS: 70486; 80047; 83605; 85025; 85652; 86140; 87040; 96365; 96375; 99284; J0743; J1885; J2270; J2405; J2930

== ENCOUNTER 2021-09-22 10:34 | Emergency (ER) | payer OTHER ==
[~2021-09-22] VITALS: Ht 182.9 cm; Wt 115.4 kg
[~2021-09-22 10:34] MED LIST changes: +CIPR-249 PO; +CIPRHCOTIC AD; +PRED20TA PO
[2021-09-22] MEDS ORDERED: GLUCAGON INJ 1MG VIAL IV STA (10:57)
[2021-09-22] MEDS ORDERED: NITROGLYCERIN 0.4 MG SUBL TABLET SL STA (11:29)
[2021-09-22 12:47] VITALS: BP 138/76
[2021-09-23] MEDS ORDERED: LIDOCAINE 2% 100MG/5ML SDV (FOR ANES.) As Ordered ONE (16:22)
[2021-09-23] MEDS ORDERED: ROCURONIUM BROMIDE 50 MG/5 ML VIAL As Ordered ONE (16:22)
[2021-09-23] MEDS ORDERED: fentaNYL 100 MCG/2 ML INJECTION As Ordered ONE (16:22)
[2021-09-23] MEDS ORDERED: MIDAZOLAM INJ 2MG/2ML VIAL (J2250 PER 1MG) As Ordered ONE (16:22)
[2021-09-23] MEDS ORDERED: propofoL 200 MG/20 ML VIAL As Ordered ONE (16:22)
[2021-09-23] MEDS ORDERED: dexameTHASONE 4 MG/ML 1ML VIAL (J1100 PER 1MG) As Ordered ONE (16:55)
[2021-09-23] MEDS ORDERED: ONDANSETRON 4MG/2ML VIAL As Ordered ONE (16:55)
[2021-09-23] MEDS ORDERED: SUGAMMADEX SODIUM 500 MG/5 ML VIAL (BRIDION) As Ordered ONE (17:03)
== END 2021-09-22 12:49 | disposition home or self-care (01) ==
LOC: M ED 10:34
DX: R13.10 Dysphagia, unspecified (principal); K21.9 Gastro-esophageal reflux disease without esophagitis; G47.33 Obstructive sleep apnea (adult) (pediatric); Z91.030 Bee allergy status
CPT/HCPCS: 96374; 99284; J1610

== ENCOUNTER 2021-09-23 13:41 | Day surgery (SDC) | payer OTHER ==
[~2021-09-23 13:41] MED LIST changes: -E-Z-GAS II EFFERVESCENT PACKET (SODIUM BICARB./CITRIC ACID/SIMETHICONE) As Ordered ONE; -E-Z-HD 98% w/w 340GM SUSP BTL As Ordered ONE; -E-Z-PAQUE 96% w/w SUSP 176GM BTL As Ordered ONE
[2021-09-23] MEDS ORDERED: NS 1,000 ML IV ONE (14:25)
[2021-09-23] MEDS ORDERED: HOME MED LIST COMPLETE! XX SCH (14:55)
[2021-09-23 15:13] LABS: BASO # 0.1 10^3/uL (0.0-0.2); BASO % 0.9 % (0.0-1.0); EOS # 0.2 10^3/uL (0.0-0.5); HEMATOCRIT 46.3 % (42.0-52.0); HEMOGLOBIN 15.9 g/dl (13.5-17.5); LYMPH # 3.1 10^3/uL (1.5-5.0); LYMPH % 34.2 % (24.0-44.0); MEAN CORPUSCULAR HEMOGLOBIN 30.4 pg (27.0-33.0); MEAN CORPUSCULAR HGB CONC 34.3 g/dl (32.0-36.5); MEAN CORPUSCULAR VOLUME 88.5 fl (80.0-96.0); MONO # 0.8 10^3/uL (0.0-0.8); MONO % 8.7 % (2.0-8.0); NEUTROPHILS # 4.9 10^3/uL (1.5-8.5); NEUTROPHILS % 53.9 % (36.0-66.0); PLATELET COUNT, AUTOMATED 236 10^3/uL (150-450); RED BLOOD COUNT 5.23 10^6/uL (4.30-6.10); WHITE BLOOD COUNT 9.1 10^3/uL (4.0-10.0)
[2021-09-23 15:41] LABS: BLOOD UREA NITROGEN 16 MG/DL (7-18); CALCIUM LEVEL 9.5 MG/DL (8.5-10.1); CARBON DIOXIDE LEVEL 27 MEQ/L (21-32); CHLORIDE LEVEL 104 MEQ/L (98-107); CREATININE FOR GFR 0.99 MG/DL (0.70-1.30); GLOMERULAR FILTRATION RATE > 60.0 (>60); GLUCOSE, FASTING 95 MG/DL (70-100); POTASSIUM SERUM 4.2 MEQ/L (3.5-5.1); SODIUM LEVEL 138 MEQ/L (136-145)
[2021-09-23 15:47] LABS: RSV AMPLIFICATION NEGATIVE (NEGATIVE)
[2021-09-23] MEDS ORDERED: LR 1,000 ML IV SCH ×2 (15:55→18:15)
[2021-09-23] MEDS ORDERED: fentaNYL 100 MCG/2 ML INJECTION ONE (16:22)
[2021-09-23] MEDS ORDERED: MIDAZOLAM INJ 2MG/2ML VIAL (J2250 PER 1MG) ONE (16:22)
[2021-09-23] MEDS ORDERED: ROCURONIUM BROMIDE 50 MG/5 ML VIAL ONE (16:22)
[2021-09-23] MEDS ORDERED: propofoL 200 MG/20 ML VIAL ONE (16:22)
[2021-09-23] MEDS ORDERED: LIDOCAINE 2% 100MG/5ML SDV (FOR ANES.) ONE (16:22)
[2021-09-23] MEDS ORDERED: dexameTHASONE 4 MG/ML 1ML VIAL (J1100 PER 1MG) ONE (16:55)
[2021-09-23] MEDS ORDERED: ONDANSETRON 4MG/2ML VIAL ONE (16:55)
[2021-09-23] MEDS ORDERED: SUGAMMADEX SODIUM 500 MG/5 ML VIAL (BRIDION) ONE (17:03)
[2021-09-23] MEDS ORDERED: ONDANSETRON 4MG/2ML VIAL IV PRN (18:15)
[2021-09-23 18:45] VITALS: BP 162/89
== END 2021-09-23 19:20 | disposition home or self-care (01) ==
LOC: M ED 13:41 → M SDC 15:51
PROVIDERS: ATTEND Surgery
DX: T18.128A Food in esophagus causing other injury, initial encounter (principal); Y92.89 Other specified places as the place of occurrence of the external cause; K21.9 Gastro-esophageal reflux disease without esophagitis; I10 Essential (primary) hypertension
CPT/HCPCS: 43235; 80048; 85025; 87631; 96374; 99284; J1100; J2250; J2405; J3010

== ENCOUNTER → 2021-09-23 | Outpatient (CLI) | payer OTHER ==
[~2021-09-23] MED LIST changes: +E-Z-GAS II EFFERVESCENT PACKET (SODIUM BICARB./CITRIC ACID/SIMETHICONE) As Ordered ONE; +E-Z-HD 98% w/w 340GM SUSP BTL As Ordered ONE; +E-Z-PAQUE 96% w/w SUSP 176GM BTL As Ordered ONE
== END ==
LOC: M RAD 12:29
PROVIDERS: ATTEND Family Medicine
DX: R13.10 Dysphagia, unspecified (principal)

== ENCOUNTER → 2022-08-05 | Outpatient (CLI) | payer OTHER ==
[~2022-08-05] MED LIST changes: +GASTROGRAFIN SOLUTION 30ML As Ordered ONE; +ISOVUE-370 76% 100ML VIAL As Ordered ONE
== END ==
LOC: M RAD 13:27
PROVIDERS: ATTEND Surgery
DX: R10.33 Periumbilical pain (principal); Z90.49 Acquired absence of other specified parts of digestive tract; N20.0 Calculus of kidney; K43.9 Ventral hernia without obstruction or gangrene; K57.30 Diverticulosis of large intestine without perforation or abscess without bleeding; K76.0 Fatty (change of) liver, not elsewhere classified

== ENCOUNTER → 2022-09-22 | Outpatient (CLI) | payer OTHER ==
[~2022-09-22] MED LIST changes: -GASTROGRAFIN SOLUTION 30ML As Ordered ONE; -ISOVUE-370 76% 100ML VIAL As Ordered ONE
== END ==
LOC: M LABSMTC 07:46
PROVIDERS: ATTEND Anesthesiology
DX: Z01.812 Encounter for preprocedural laboratory examination (principal); Z20.822 Contact with and (suspected) exposure to COVID-19

== ENCOUNTER 2022-11-27 08:53 | Day surgery (SDC) | payer OTHER ==
[~2022-11-27] VITALS: Ht 182.9 cm; Wt 118.8 kg
[~2022-11-27 08:53] MED LIST changes: +ACET-910 PO; +UNRESOLVED CLARIFICATION ENTRY XX SCH
[2022-11-27] MEDS ORDERED: LR 1,000 ML IV SCH ×2 (09:10→12:30)
[2022-11-27] MEDS ORDERED: ceFAZolin SOD 1 GM in D5W MINI-BAG PLUS 50 ML IV ONE (09:15)
[2022-11-27] MEDS ORDERED: ceFAZolin SOD 2 GM in IV 1 EA IV ONE (09:15)
[2022-11-27] MEDS ORDERED: fentaNYL 100 MCG/2 ML INJECTION As Ordered ONE (09:35)
[2022-11-27] MEDS ORDERED: MIDAZOLAM INJ 2MG/2ML VIAL As Ordered ONE (09:35)
[2022-11-27] MEDS ORDERED: propofoL 200 MG/20 ML VIAL As Ordered ONE ×2 (09:36→12:21)
[2022-11-27] MEDS ORDERED: LIDOCAINE 2% 100MG/5ML SDV (FOR ANES.) As Ordered ONE (09:36)
[2022-11-27] MEDS ORDERED: ROCURONIUM BROMIDE 50MG/5ML VIAL As Ordered ONE ×2 (09:36→11:33)
[2022-11-27] MEDS ORDERED: KETOROLAC 60MG 2ML VIAL As Ordered ONE (09:36)
[2022-11-27] MEDS ORDERED: SUGAMMADEX SODIUM 500 MG/5 ML VIAL (BRIDION) As Ordered ONE (09:36)
[2022-11-27] MEDS ORDERED: ACETAMINOPHEN 1000MG 100ML IV BAG As Ordered ONE (09:36)
[2022-11-27] MEDS ORDERED: ONDANSETRON 4MG 2ML VIAL As Ordered ONE (09:36)
[2022-11-27] MEDS ORDERED: BUPIVACAINE/EPIN 0.25% 30ML VIAL As Ordered ONE (10:47)
[2022-11-27] MEDS ORDERED: HYDROmorphone HCL 2MG/ML 1ML VIAL As Ordered ONE (11:20)
[2022-11-27] MEDS ORDERED: oxyCODONE 5MG TAB PO PRN (12:30)
[2022-11-27] MEDS ORDERED: ONDANSETRON 4MG 2ML VIAL IV PRN (12:30)
[2022-11-27] MEDS ORDERED: fentaNYL 100 MCG/2 ML INJECTION IV PRN (12:30)
[2022-11-27] MEDS ORDERED: HYDROMORPHONE HCL 0.5 MG/ 0.5 ML SYRINGE IV PRN (12:30)
[2022-11-27 14:29] VITALS: BP 141/77
== END 2022-11-27 14:40 | disposition home or self-care (01) ==
LOC: M SDC 08:53
PROVIDERS: ATTEND Surgery
DX: K43.0 Incisional hernia with obstruction, without gangrene (principal); I10 Essential (primary) hypertension; G47.33 Obstructive sleep apnea (adult) (pediatric); K21.00 Gastro-esophageal reflux disease with esophagitis, without bleeding; K22.70 Barrett's esophagus without dysplasia; M10.9 Gout, unspecified; J45.909 Unspecified asthma, uncomplicated; Z91.030 Bee allergy status; R10.13 Epigastric pain; F17.200 Nicotine dependence, unspecified, uncomplicated
CPT/HCPCS: 49615; J0131; J0690; J1100; J1170; J1885; J2250; J2405; J3010; S0020; S2900